=== PATIENT | female | born 1950 | race Caucasian/White ===

== ENCOUNTER 2021-12-16 13:00 | Outpatient (RCR) | payer MEDICARE, MEDICAID, SELFPAY ==
--- NOTE | 2021-11-25 15:44 | MHC.PT.EP ---
[facility] [place] Office [place] Office [place] Office [address] Supriya Judd [address] [phone] F: [phone] F: [phone] F: [phone] F: [phone] Physical Therapy Plan of Care Date of Evaluation: Date of Surgery: 07/2021 ORIF L HIP Diagnosis: L HIP PAIN, UNSTEADY GT, FALLS Assessment: Pt IS 71 YO F REFERRED TO PT FROM DR BAEZ WITH L HIP PAIN, UNSTEADY GT. PRESENTS S/P L HIP SURGERY (ORIF) JULY [address] CAZARES WITH DC DIRECTLY HOME TO STAY WITH DTR WITH HOME PT (LIMITED PER Pt REPORT). Pt HAD BEEN USING [facility] AND TRANSITIONED TO [facility] ABOUT 2 WKS AGO, HX OF R HIP SURGERY ALSO (ORIF S/P FALL) 5 YRS AGO. ALSO HX OF KYPHOPLASTY WITH SIGNIF SCOLIOSIS NOTED. Pt REPORTS SHE IS VERY ANXIOUS/NERVOUS ABOUT GOING OUT BECAUSE OF FEAR OF FALLING AND BECAUSE OF PAIN. PRESENTS WITH ANTALGIC GT WITH [facility], DECREASED L QUAD, HIP FLEXOR AND ABDUCTOR STRENGTH LIMITED BAL. Pt IS HIGH FALL RISK WITH TUG 24 SEC (NO AD). OF NOTE, L LE APPEARS LONGER IN STAND AND SUP (L CREST ELEVATED), RECOMMENDED 2X/WK TO ADDRESS THESE ISSUES, BUT Pt PREFERS 1X/WK Frequency and Duration: The patient will be seen 1X/WK X 8 WKS Short Term Goals: 1. IMPROVED GT PATTERN (LESS LIMP) WITH LRAD 2. I HEP WITH DC EX PLAN 3. IMPROVED COMFORT FOR SLEEP AT NIGHT Group Home Goals: 1. Pt ABLE TO CLIMB STAIRS I'LY WITH USE RAIL(S) 2. DECREASED L HIP PAIN AT LEAST 50% WITH ADLS 3. IMPROVED TUG (WITHOUT AD SOC=24 SEC) 4. Pt ABLE TO SLS L AT LEAST 10 SEC 5. L HIP ABD STRENGTH AT LEAST 3/5 ON L Treatment Plan: Modalities to reduce pain, spasms and effusion. Manual therapy to restore motion and function. Therapeutic exercise to improve strength and flexibility. Neuromuscular re-education for posture and balance. Therapeutic activities to return to functional activities of daily living. Electronically signed by: MELONIE GIBBS PT Please sign and return to therapist. Thank you for your referral.
--- NOTE | 2022-02-05 15:35 | MHC.PT.DC ---
[facility] [place] Office [place] Office [place] Office [address] Supriya Judd [address] [phone] F: [phone] F: [phone] F: [phone] F: [phone] Physical Therapy Discharge Report Diagnosis: L HIP PAIN, UNSTEADY GT, FALLS Date of Surgery: 07/2021 ORIF L HIP Date of Evaluation: 11/25/21 Date of Discharge: 02/05/22 Treatments to Date: 3 Cancellations to Date: No Shows to Date: Discharge Status: Patient Elected to Stop Recommend MD Follow-up Discharge Summary: Pt SEEN FOR INIT EVAL AND 2 FU VISIT (1 CX) THEN NO SHOWED LAST SCHEDULED APPT WITHOUT FURTHER APPTS MADE (?). AT LAST SESSION ON 12/16/21 PER ASSESSMENT DOES NOT BRIELLE A FULL HOUR SESSION, SIGNIF LLD NOTED (HAD TRIALED HEEL LIFTS ON R WITH Pt NOT LIKING IT ), UT/UPPER BODY COMPENSATION WITH EX PERF/FUNCTIONAL MOBILITY, SOME SORENESS REPORTED L HIP WITH FATIGUE NOTED' Electronically signed by: MELONIE GIBBS PT Please sign and return to therapist. Thank you for your referral.
== END 2022-02-05 15:36 | disposition home or self-care (01) ==
LOC: HO.PTWFD 13:00
PROVIDERS: Visit Provider Family Medicine
DX: R29.898 Other symptoms and signs involving the musculoskeletal system (principal)
CPT/HCPCS: 97110; 97162; 97530; 97535

== ENCOUNTER 2022-02-16 10:43 | Outpatient (REF) | payer MEDICARE, MEDICAID, SELFPAY ==
[2022-02-16 13:35] LABS: MANUAL DIFF FLAG NO
[2022-02-16 13:37] LABS: Basophils Absolute Auto 0.1 X10*3/uL (0.0-0.2); Basophils Percent Auto 0.9 % (0-2); Eosinophils Absolute Auto 0.1 X10*3/uL (0.0-0.4); Eosinophils Percent Auto 1.7 % (0-4); Hematocrit 48.3 % (37.0-47.0); Hemoglobin 16.5 g/dl (12.0-16.0); Imm Gran Abs Auto 0.02 X10*3/uL (0.00-0.03); Imm Gran Pct Auto 0.3 % (0.0-0.4); Lymphocytes Absolute Auto 1.8 X10*3/uL (1.2-4.9); Lymphocytes Percent Auto 28.4 % (20-40); Mean Corpuscular HGB Conc 34.2 g/dl (31.0-35.0); Mean Corpuscular Hemoglobin 33.8 pg (27.0-33.0); Mean Platelet Volume 9.2 fL (9.4-12.3); Monocytes Absolute Auto 0.5 X10*3/uL (0.1-1.2); Monocytes Percent Auto 7.7 % (2-11); Neutrophils Absolute Auto 3.9 x10*3/uL (2.0-8.3); Platelet Count 364 X10*3/uL (160-400); Red Blood Count 4.88 X10*6/uL (4.20-5.50); Red Cell Distribution Width 14.1 % (11.0-16.0); White Blood Count 6.3 X10*3/uL (4.8-10.8)
[2022-02-16 14:01] LABS: Alanine Aminotransferase 6 U/L (0-31); Albumin Level 4.4 g/dL (3.5-5.0); Alkaline Phosphatase 145 U/L (39-117); Anion Gap 14 (12-20); Aspartate Amino Transferase 13 U/L (5-31); Bilirubin Total 0.6 mg/dL (0.0-1.0); Blood Urea Nitrogen 9 mg/dL (9-16); Calcium 9.7 mg/dL (8.4-10.2); Carbon Dioxide 28 mmol/L (22-29); Chloride 102 mmol/L (96-108); Cholesterol 246 mg/dL; Estimated Glomerular Filt Rate > 60; Glucose Fasting 107 mg/dL (60-99); HDL Cholesterol 86 mg/dL; LDL Cholesterol Calculated 142 mg/dl; Sodium 140 mmol/L (135-145); Total Protein 7.1 g/dL (6.5-8.0); Triglycerides 93 mg/dL
[2022-02-16 14:09] LABS: TSH reflex Free T4 1.19 uIU/mL (0.32-4.0)
== END 2022-02-16 10:44 | disposition home or self-care (01) ==
LOC: HO.WFDLDS 10:43
PROVIDERS: Visit Provider Family Medicine
DX: Z00.00 Encounter for general adult medical examination without abnormal findings (principal)
CPT/HCPCS: 36415; 80053; 80061; 84443; 85025

== ENCOUNTER 2022-03-04 13:03 | Outpatient (REF) | payer MEDICARE, MEDICAID, SELFPAY ==
--- NOTE | ~2022-03-04 | XR_ITS ---
EXAMINATION: XR KNEE, LEFT CLINICAL INFORMATION: Pain. COMPARISON: None TECHNIQUE: AP and lateral views of the left knee. FINDINGS: There is bony demineralization. There heterogeneously dense marrow within the tibial shaft, with mottled, lucent foci. Lesser changes are questioned within the fibular shaft. Bony alignment is normal. The lateral, medial and patellofemoral joint space compartments are well-maintained. No fracture or dislocation is seen. There is a small left knee joint effusion. No foreign body is seen. There are atherosclerotic calcifications. XR/XR knee LT 2V IMPRESSION: 1. There is a small left knee joint effusion. 2. No fracture, dislocation or unusual degenerative change is seen. 3. There is marrow heterogeneity within the tibial shaft and, to a lesser extent, the fibular shaft. This may be a sequela of osteopenia; however, further differential considerations include multiple myeloma and focal neoplastic lesions. Please correlate clinically. If clinically indicated, this could be further characterized with a nuclear bone scan or MRI. A preliminary report was provided by the [facility] on 03/08/2022.
== END 2022-03-04 13:04 | disposition home or self-care (01) ==
LOC: HO.XRAY 13:03
PROVIDERS: PCP Family Medicine; Visit Provider Nurse Practitioner Family
DX: M25.562 Pain in left knee (principal)
CPT/HCPCS: 73560

== ENCOUNTER 2022-06-24 12:35 | Outpatient (REF) | payer MEDICARE, MEDICAID, SELFPAY ==
[2022-06-24 14:15] LABS: Estimated Average Glucose 94 mg/dL; Hemoglobin A1c % 4.9 %
== END 2022-06-24 12:36 | disposition home or self-care (01) ==
LOC: HO.WFDLDS 12:35
PROVIDERS: Visit Provider Family Medicine
DX: R73.01 Impaired fasting glucose (principal)
CPT/HCPCS: 36415; 83036

== ENCOUNTER → 2022-10-06 09:55 | Outpatient (REF) | payer MEDICARE, MEDICAID, SELFPAY ==
--- NOTE | ~2022-10-06 | NM_ITS ---
EXAMINATION: THREE PHASE BONE SCAN CLINICAL INFORMATION: Pain in left knee patient states history of skiing, accidents 4 times and she was 17 years old. COMPARISON: No previous bone scan is available for comparison. Radiographs of the left knee dated 03/04/2022 are available for comparison. TECHNIQUE: Initial rapid sequence images were obtained over the knees in the anterior and posterior projections during the bolus injection of 18 mCi Tc-99m MDP. Static images of the whole-body with multiple views of the knees were then obtained 3.25 hours post injection. FINDINGS: Initial rapid sequence images show bilaterally symmetrical flow to the knees with no foci of abnormally increased flow present at any site. Blood pool images obtained from the hips to the proximal tibias show no abnormal foci of increased blood pool activity. The urinary bladder is well-visualized at this time. The delayed static images show minimally increased activity in the patellar compartment of the right knee in the right medial tibial plateau. Is also a mild diffuse increase in activity in the bones adjacent to the right ankle. There is moderately increased activity in a horizontally linear focus across the sternomanubrial junction is also minimally increased activity in the sternoclavicular joints bilaterally. Mildly increased activity is present in the radial side of both hands, more prominently on the left. A moderately severe well compensated thoracolumbar kyphoscoliosis is present with lumbar convexity to the left. There is mildly to moderately increased activity in the T12 vertebra and in addition mildly increased activity is present diffusely at the costovertebral junctions of all of the left ribs and several right ribs, most prominently in the right lateral aspect of the upper thoracic spine. Some residual radiopharmaceutical is present at the injection site in the right antecubital fossa. The urinary bladder and faint visualization of both kidneys are noted. The right kidney is low-lying and pelvic in location. NM/NM bone scan whole body IMPRESSION: Very mild abnormalities in the medial and patellar compartments of the right knee are noted and these are probably arthritic or traumatic in etiology. A few additional mild nonspecific abnormalities are noted as described above and these are all likely arthritic or traumatic in etiology. None of these abnormalities is strongly suspicious for metastatic disease..
== END ==
LOC: HO.NUCMED 09:55
PROVIDERS: PCP Family Medicine; Visit Provider Family Medicine
DX: M25.562 Pain in left knee (principal)
CPT/HCPCS: 78306; 78315; A9503

== ENCOUNTER 2023-03-11 13:31 | Outpatient (AMB) | payer MEDICARE, MEDICAID, SELFPAY ==
[2023-03-11 13:40] VITALS: BP 148/90; PULSE 86; RESP 14; TEMP 37.1; O2SAT 94; BMI 21.1
--- NOTE | 2023-03-11 13:40 | A.OFFPC_ITS ---
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 Patient states she was referred to Ortho but she has not seen them due to traveling too far out of her comfort zone. She is wondering if you can refer her to some one closer such as [facility].? Bark Scaler Required: No Accompanied by: Self / Same As Patient Allergies alendronate sodium [From Fosamax] Allergy (Mild, Verified 03/11/23 13:51) Hives Tobacco use date assessed: 09/15/22 Dental Screening Dental Screen Date: 03/11/23 Did you have a dental visit in the last 12 months?: No Did you have a dental problem in the last 6 months where you did not have access to dental care?: No Was dental information given to patient?: Patient declined HPI f/u chronic conditions HPI Details 72 y/o female presents to f/u chronic conditions. Had switched her meloxicam to celebrex but she reports she has never gotten this due to insurance issues. Had increased her citalopram to 30mg daily and continued her trazodone for her anxiety. 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 Osteoporosis Overactive bladder Pure hypercholesterolemia Smoking Sternal fracture Surgical History History of hip surgery History of kyphoplasty Social History Household Members: Spouse Housing: House Are you a primary wound care nurse to a significant other at home: No Do you presently have visiting nurse or other home services: Yes (screw down) Patient Tobacco Use Status: Current everyday Tobacco user Tobacco use type: Cigarette e-Cigarette/Vaping Use: Never Used Second Hand Smoke Exposure: No service: No Current occupational status: retired and disabled Current occupational exposures/hazards: No Cognitive needs: No Hearing needs: No Vision needs: No Questionnaire Thrive Questionnaire Date Thrive assessed: 09/15/22 ALTHEA-7 AMB Questionnaire ALTHEA-7 Date ALTHEA - 7 assessed: 09/15/22 Source: Developed by Drs. Reuben Martino, Cecilia Arizmendi, Antonio Perry and colleagues, with an educational chay from [employer]. Review of Systems Const Denies chills, Denies fatigue, Denies fever(s), Denies headache(s) and Denies weakness ENT Denies dizziness and Denies headache(s) Card Denies chest pain, Denies lightheadedness, Denies dyspnea and Denies other (Palpitations) Resp Denies cough, Denies dyspnea, Denies wheezing and Denies other ( shortness of breath) Musc Details: Bilateral hand pain, L worse than R Denies numbness and Denies tingling Neuro Denies dizziness, Denies headache(s), Denies numbness, Denies tingling, Denies paresthesias and Denies weakness Psych Reports anxiety and Reports depression Endo Denies fatigue Aller/Immun Denies wheezing Physical exam (Primary Care) Vital Signs: Last Vital Signs Temp 98.7 F 03/11/23 13:40 Pulse 86 03/11/23 13:40 Resp 14 03/11/23 13:40 BP 148/90 H 03/11/23 13:40 Pulse Ox 94 03/11/23 13:40 Oxygen Delivery Method Room Air 03/11/23 13:40 BMI result Body Mass Index 21.1 Tobacco/Smoking Status: Tobacco use Status Tobacco use date assessed 09/15/22 03/11/23 13:53 Patient Tobacco Use Status Current everyday Tobacco 03/11/23 13:53 Tobacco use type Cigarette 03/11/23 13:53 e-Cigarette/Vaping Use Never Used 03/11/23 13:53 Thrive Assessment: Date of Thrive Assessment Date Thrive assessed 02/01/23 07/28/23 13:53 Const General: no acute distress and well developed Nutritional Appearance: well nourished Orientation/consciousness: patient oriented x3 HENMT Head: Yes normocephalic and Yes atraumatic Eyes General: appearance normal, both eyes and all related structures Pupils: Equal, round and reactive pupils present EOM: EOMs intact bilaterally Resp Effort & Inspection: normal respiratory effort Auscultation: clear to auscultation bilaterally Cardio Rate: regular rate Rhythm: regular rhythm Heart sounds: S1 normal heart sound present, S2 normal heart sound present, no gallops, no murmurs and no rubs Neuro General: patient oriented x3 and gait normal Cranial nerves: Yes Equal, round and reactive pupils present Extrem Other: Bilateral hand pain, L worse than R Psych Affect: normal affect Assessment and Plan Assessment & Plan (1) Chronic back pain: Code(s): M54.9 - Dorsalgia, unspecified; G89.29 - Other chronic pain Plan: Had prescribed Celebrex in place of meloxicam but her insurance declined this. She will have supplementary insurance starting March 15 and will try to have this resubmitted. If not, will get prior authorization (2) Anxiety and depression: Code(s): F41.9 - Anxiety disorder, unspecified; F32.A - Depression, unspecified Plan: Had increased her citalopram to 30 mg daily but does not look like she has made this change yet. Reminded her to increase citalopram to 30 mg daily. (3) Hand pain: Code(s): M79.643 - Pain in unspecified hand Plan: Bilateral hand pain, left worse than right. This is likely secondary to arthritis and worsened with manual range of motion exertion such as gardening Encouraged her to use wrist brace which she has for her left hand and if this is improving her symptoms we can get her a 2nd wrist brace Also working on getting Celebrex for her-see above (4) Left hip pain: Code(s): M25.552 - Pain in left hip Plan: Patient requests referral to Ortho Referred to [facility] ortho (5) Bilateral hip pain: Code(s): M25.551 - Pain in right hip; M25.552 - Pain in left hip Plan: As above, referred to Ortho Orders: Referrals Orthopedics Referral M25.551 - Pain in right hip, M25.552 - Pain in left hip, M54.42 - Lumbago with sciatica, left side Coding Level of Care Code Est Pt Level 3 (43941) Diagnoses Chronic back pain M54.9; G89.29 Anxiety and depression F41.9; F32.A Hand pain M79.643 Left hip pain M25.552 Bilateral hip pain M25.551; M25.552
== END 2023-03-11 14:22 | disposition home or self-care (01) ==
PROVIDERS: PCP Family Medicine; Visit Provider Family Medicine
DX: M54.9 Dorsalgia, unspecified (principal); G89.29 Other chronic pain; F41.9 Anxiety disorder, unspecified; F32.A Depression, unspecified; M79.643 Pain in unspecified hand; M25.552 Pain in left hip; M25.551 Pain in right hip
CPT/HCPCS: 99213

== ENCOUNTER 2023-03-31 12:23 | Outpatient (REF) | payer OTHER, MEDICAID, SELFPAY ==
--- NOTE | ~2023-03-31 | XR_ITS ---
EXAMINATION: XR PELVIS CLINICAL INFORMATION: Pain. COMPARISON: None available. TECHNIQUE: AP view of the pelvis. FINDINGS: There is bony demineralization. There is mild narrowing of the left acetabular joint space. The right acetabular joint space is well-maintained. There is mild subchondral sclerosis of the acetabular roofs. The femoral heads are smooth. No acute fracture or dislocation is seen. The pubic symphysis is intact. There are intact intramedullary henrry and compression screws related to bilateral hip ORIFs. No hardware failure or loosening is seen. There are pelvic phleboliths. No foreign body is seen XR/XR pelvis 1-2V IMPRESSION: 1. There is intact bilateral hip orthopedic hardware, without failure or loosening noted. 2. No acute fracture or dislocation is seen. 3. There is mild osteoarthritic change of the left hip, and minimal osteoarthritic change is seen of the right hip.
== END 2023-03-31 12:24 | disposition home or self-care (01) ==
LOC: HO.HOSX 12:23
PROVIDERS: Visit Provider Orthopaedic Surgery
DX: T84.84XA Pain due to internal orthopedic prosthetic devices, implants and grafts, initial encounter (principal); Z96.9 Presence of functional implant, unspecified
CPT/HCPCS: 72170; 99202

== ENCOUNTER 2023-03-31 13:55 | Outpatient (AMB) | payer OTHER, MEDICAID, SELFPAY ==
--- NOTE | 2023-03-31 14:01 | A.OFFVIS_ITS ---
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 Patient reports that she had hixtory of a Left hip fracture and had ORIF with Dr. Martinez at [place] about a year ago. The right hip was also fractured and surgical ORIF at [facility] about 6-7 years. Left hip is more painful than the right, she feels that most of her pain in the right hip is due to compensation of the left hip. 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 Her hip pain has been worsening since last month. Her left hip is more painful than the right, and she feels that most of her pain in the right hip is due to compensation in the left hip. She had a history of a left hip fracture and had ORIF with Dr. Martinez at [place] about a year ago. The right hip was also fractured and underwent surgical ORIF at [facility] about 6?7 years ago. She has difficulty walking. 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) Patient Tobacco Use Status: Current everyday Tobacco user Tobacco use type: Cigarette e-Cigarette/Vaping Use: Never Used Second Hand Smoke Exposure: No service: No Current occupational status: retired and disabled Current occupational exposures/hazards: No Cognitive needs: No Hearing needs: No Vision needs: No Physical Exam Vital Signs: BMI result Body Mass Index 21.8 Const General: no acute distress, alert and awake Orientation/consciousness: patient oriented x3 HEENT Head: Yes normocephalic and Yes atraumatic Eyes EOM: EOMs intact bilaterally Resp Effort & Inspection: normal respiratory effort and able to speak in complete sentences Cardio Jugular venous distension: no JVD Skin General skin exam: turgor normal Rashes: no rashes Neuro General: patient oriented x3 Extrem Other: Slim F with palpable tenderness over the lateral aspect of the proximal femur. Hardware palpable. Psych Appearance: grossly normal Affect: normal affect Attitude: cooperative Results Reviewed Results Reviewed: I personally reviewed relevant radiographs. Radiographs demonstrate hardware in both hips on the right she had a short nail with 2 hip screws. Sequela fracture but fracture appears healed. On the left she had a short gamma IM nail with hip screw protruding from the lateral cortex of the femur approximately 2 cm Assessment & Plan Assessment & Plan (1) Retained orthopedic hardware: Code(s): Z96.9 - Presence of functional implant, unspecified Plan: This is a 72-year-old woman with painful orthopedic hardware in the left hip. I discussed treatment options. The radiographs look reasonable but she is very thin and this prominent hip screw on the left bothers her. It is reasonable to remove it. I described surgery to her and I discussed the risks benefits and alternatives including but not limited to the risk of pain, infection, stiffness, need for further surgery as well as potential medical complications such as blood clots, pulmonary embolism and cardiac complications. She expressed understanding and we will proceed forward accordingly. Plan Scribed for Dr. Chadd Vance by Ramy Byrne medical insurance claims processor, on 03/31/2023. I, Dr. Chadd Vance, have personally reviewed and agree with the information entered by the scribe. Orders: Orders XR pelvis 1-2V 03/31/23 M25.559 - Pain in unspecified hip Coding Level of Care Code New Pt Level 4 (22750) Diagnoses Retained orthopedic hardware Z96.9
[2023-03-31 14:02] VITALS: BMI 21.8
== END 2023-03-31 15:11 | disposition home or self-care (01) ==
PROVIDERS: PCP Family Medicine; Visit Provider Orthopaedic Surgery
DX: T84.84XA Pain due to internal orthopedic prosthetic devices, implants and grafts, initial encounter (principal)
CPT/HCPCS: 99204

== ENCOUNTER 2023-04-05 15:39 | Outpatient (AMB) | payer OTHER, MEDICAID, SELFPAY ==
[2023-04-05 15:45] VITALS: BP 138/86; PULSE 91; RESP 12; TEMP 36.9; O2SAT 96; BMI 21.4
--- NOTE | 2023-04-05 15:45 | MHC.PC.OV ---
Vital Signs 04/05/23 15:45 Height 4 ft 11 in Weight 106 lb 2 oz BMI 21.4 BP 138/86 Blood Pressure Location Lt brachial Position Sitting Respiration 12 Pulse 91 Pulse Source Pulse Oximeter Temp 98.5 F Temp Source Temporal Artery Scan Pulse Oximetry (%) 96 Oxygen Delivery Method Room Air Intake Visit Reasons: L hip hardware removal-04/20 Intake Note: Patient states that she needs a whole new script for her Celebrex, as well as a refill on her tizanidine. Instructor Modeling Required: No Accompanied by: Self / Same As Patient Allergies alendronate sodium [From Fosamax] Allergy (Mild, Verified 04/05/23 15:57) Hives Tobacco use date assessed: 09/15/22 Fall risk assessment: No Falls in past year Last assessed Fall Risk: 04/05/23 Dental Screening Dental Screen Date: 04/05/23 Did you have a dental visit in the last 12 months?: Yes Did you have a dental problem in the last 6 months where you did not have access to dental care?: No Was dental information given to patient?: Patient has dentist HPI HPI Comments History of Present Illness Details 72-year-old female presents for medical clearance for hardware removal in the left hip on 04/20/2023 with Orthopedic surgery, Dr. Vance at [facility]. She notes she had left replacement over a year and half ago; her left hip has been sensitive to touch and pressure. Her symptoms have been on and off. She notes she was informed by the surgeon that removing the screws from the hip may improve or resolve her symptoms. No associated tingling, numbness, or loss of sensation. She denies acute symptoms today. 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 Reuben Martino, Cecilia Arizmendi, Antonio Perry and colleagues, with an educational chay from [employer]. Review of Systems Const Details: Const Denies chills, Denies fatigue, Denies fever(s), Denies headache(s) and Denies weakness ENT Denies dizziness and Denies headache(s) Card Denies chest pain, Denies lightheadedness, Denies dyspnea and Denies other (Palpitations) Resp Denies cough, Denies dyspnea, Denies wheezing and Denies other ( shortness of breath) GI Denies abdominal pain, Denies melena, Denies hematochezia, Denies change in bowel habits, Denies dyspepsia and Denies nausea Denies hematuria and Denies dysuria Musc Denies abnormal gait, Denies myalgias, Denies arthralgias, Denies numbness and Denies tingling Skin/Breast Denies rash, Denies unusual bruising and Denies wounds Neuro Denies abnormal gait, Denies dizziness, Denies headache(s), Denies memory loss, Denies numbness, Denies Sensory deficit (Neuro), Denies tingling and Denies weakness Psych Denies anxiety, Denies depression, Denies memory loss Endo Denies cold intolerance, Denies fatigue, Denies heat intolerance, Denies polydipsia and Denies polyuria Aller/Immun Denies wheezing Physical exam (Primary Care) Vital Signs: Last Vital Signs Temp 98.5 F 04/05/23 15:45 Pulse 91 04/05/23 15:45 Resp 12 04/05/23 15:45 BP 138/86 04/05/23 15:45 Pulse Ox 96 04/05/23 15:45 Oxygen Delivery Method Room Air 04/05/23 15:45 BMI result Body Mass Index 21.4 Tobacco/Smoking Status: Tobacco use Status Tobacco use date assessed 09/15/22 04/05/23 15:56 Patient Tobacco Use Status Current everyday Tobacco 04/05/23 15:56 Tobacco use type Cigarette 04/05/23 15:56 e-Cigarette/Vaping Use Never Used 04/05/23 15:56 Thrive Assessment: Date of Thrive Assessment Date Thrive assessed 09/15/22 04/05/23 15:56 Const Other: General: no acute distress and well developed Nutritional Appearance: well nourished Orientation/consciousness: patient oriented x3 HENMT Head: Yes normocephalic and Yes atraumatic Eyes General: appearance normal, both eyes and all related structures Pupils: Equal, round and reactive pupils present EOM: EOMs intact bilaterally Resp Effort & Inspection: normal respiratory effort Auscultation: clear to auscultation bilaterally Cardio Rate: regular rate Rhythm: regular rhythm Heart sounds: S1 normal heart sound present, S2 normal heart sound present, no gallops, no murmurs and no rubs GI Palpation (GI): No Abdominal aortic bruit present, Soft to palpation, nontender, No hepatosplenomegaly present and No Rebound tenderness present Auscultation: normal bowel sounds General: Yes no CVA tenderness Back/Spine/Pelvis Back: no CVA tenderness Cervical Spine: cervical ROM normal and No Cervical spine tenderness Thoracic/Lumbar Spine: thoraco-lumbar ROM normal, No pain with thoraco-lumbar ROM, No thoracic spinal tenderness and No lumbar spinal tenderness Extrem General: Yes normal to inspection, No edema and No calf tenderness Skin General: warm and dry. Normal skin color. Normal skin turgor Lesions: no lesions Rashes: no rashes Trauma: no lacerations or abrasions Wounds: no wounds Nails: normal Neuro General: patient oriented x3, gait normal and no focal neuro deficit Cranial nerves: Yes Equal, round and reactive pupils present Cognition (Neuro): normal cognition Gait exam (Neuro): Normal gait present Sensory Exam: No Sensory deficit (Neuro) Psych Appearance: grossly normal Affect: normal affect Attitude: cooperative Thought process: Normal thought process present Assessment and Plan Assessment & Plan (1) Preop examination: Code(s): Z01.818 - Encounter for other preprocedural examination Plan: 72-year-old female presents for medical clearance for hardware removal in the left hip on 04/20/2023 with Orthopedic surgery, Dr. Vance at [facility]. She notes she had left replacement over a year and half ago; her left hip has been sensitive to touch and pressure. Her symptoms have been on and off. She notes she was informed by the surgeon that removing the screws from the hip may improve or resolve her symptoms. No acute symptoms today Normal preop exam No current medical contraindications for left hip surgery CBC and CMP ordered. Will review and notify patient of results Follow-up with PCP as planned Verbalized understanding and agreed with the plan. Orders: Orders Complete Blood Count Auto Diff Today Z01.818 - Encounter for other preprocedural examination Comprehensive Met. Panel Today Z01.818 - Encounter for other preprocedural examination Coding Level of Care Code Est Pt Level 3 (30600) Diagnoses Preop examination Z01.818
== END 2023-04-05 16:17 | disposition home or self-care (01) ==
PROVIDERS: PCP Family Medicine; Visit Provider Nurse Practitioner Family
DX: Z01.818 Encounter for other preprocedural examination (principal)
CPT/HCPCS: 99213

== ENCOUNTER 2023-04-12 11:19 | Outpatient (REF) | payer OTHER, MEDICAID, SELFPAY ==
[2023-04-12 14:41] LABS: MANUAL DIFF FLAG NO
[2023-04-12 14:43] LABS: Basophils Percent Auto 0.5 % (0-2); Eosinophils Absolute Auto 0.1 X10*3/uL (0.0-0.4); Eosinophils Percent Auto 0.8 % (0-4); Hematocrit 47.7 % (37.0-47.0); Hemoglobin 15.9 g/dl (12.0-16.0); Imm Gran Abs Auto 0.02 X10*3/uL (0.00-0.03); Imm Gran Pct Auto 0.3 % (0.0-0.4); Lymphocytes Absolute Auto 1.5 X10*3/uL (1.2-4.9); Lymphocytes Percent Auto 19.7 % (20-40); Mean Corpuscular HGB Conc 33.3 g/dl (31.0-35.0); Mean Corpuscular Hemoglobin 32.9 pg (27.0-33.0); Mean Corpuscular Volume 98.8 fL (80.0-98.0); Mean Platelet Volume 9.6 fL (9.4-12.3); Monocytes Absolute Auto 0.7 X10*3/uL (0.1-1.2); Monocytes Percent Auto 8.8 % (2-11); Neutrophils Absolute Auto 5.2 x10*3/uL (2.0-8.3); Neutrophils Percent Auto 69.9 % (45-73); Platelet Count 275 X10*3/uL (160-400); Red Blood Count 4.83 X10*6/uL (4.20-5.50); Red Cell Distribution Width 13.5 % (11.0-16.0); White Blood Count 7.4 X10*3/uL (4.8-10.8)
[2023-04-12 15:25] LABS: Anion Gap 14 (12-20); Carbon Dioxide 23 mmol/L (22-29); Chloride 104 mmol/L (96-108); Cholesterol 250 mg/dL (<200); Potassium 4.2 mmol/L (3.3-5.1); Sodium 137 mmol/L (135-145); Total Protein 7.1 g/dL (6.5-8.0)
[2023-04-12 15:28] LABS: Alanine Aminotransferase 9 U/L (0-31); Albumin Level 4.3 g/dL (3.5-5.0); Alkaline Phosphatase 99 U/L (39-117); Aspartate Amino Transferase 22 U/L (5-31); Bilirubin Total 0.6 mg/dL (0.0-1.0); Blood Urea Nitrogen 8 mg/dL (9-16); Estimated Glomerular Filt Rate > 60; Glucose Random 98 mg/dL (60-115); HDL Cholesterol 89 mg/dL (>40); LDL Cholesterol Calculated 147 mg/dL (<100); Triglycerides 73 mg/dL (<150)
== END 2023-04-12 11:20 | disposition home or self-care (01) ==
LOC: HO.WFDLDS 11:19
PROVIDERS: Nurse Practitioner Family; Visit Provider Family Medicine
DX: Z00.00 Encounter for general adult medical examination without abnormal findings (principal); E78.00 Pure hypercholesterolemia, unspecified
CPT/HCPCS: 36415; 80053; 80061; 85025

== ENCOUNTER 2023-04-20 07:07 | Day surgery (SDC) | payer OTHER, MEDICAID, SELFPAY ==
[2023-04-15 11:31] VITALS: BMI 21.8
--- NOTE | 2023-04-19 08:14 | HO.ANESPROP2 ---
Documented by User: Kirstin Wayne NP 04/19/23 08:18 HPI - Anesthesia Eval Consult details Narrative: 72yo F for Left Hip Removal Orthopedic Hardware Medically cleared PMFSH Active Problems Active Problems: All Active Problems (Updated 04/05/23 @ 16:20 by Dre Joiner CNP) Preop examination (Acute) Retained orthopedic hardware (Acute) Hand pain (Acute) Kyphosis (Acute) Scoliosis (Acute) Allergies (Acute) Screening for osteoporosis (Acute) Sciatica (Acute) Elevated LDL cholesterol level (Acute) Elevated fasting glucose (Acute) Breast cancer screening by mammogram (Acute) Screening for colon cancer (Acute) Adult general medical exam (Acute) Underweight due to inadequate caloric intake (Acute) Laboratory exam ordered as part of routine general medical examination (Acute) Left hip pain (Acute) Chronic back pain (Acute) Status post fall (Acute) Lower extremity weakness (Acute) Anxiety and depression (Acute) Smoker (Acute) Upper extremity weakness (Acute) Lumbago with sciatica, left side (Acute) Elevated hematocrit (Acute) Knee pain, left (Acute) Erythrocytosis (Acute) Smoking (Acute) Ascending aorta dilation (Acute) COPD with emphysema (Acute) Osteoporosis (Acute) Past Medical History Medical History Ascending aorta dilation Carpal tunnel syndrome Chronic back pain greater than 3 months duration 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 Osteoporosis Overactive bladder Pure hypercholesterolemia Smoking Sternal fracture Surgical History Surgical History History of hip surgery History of kyphoplasty Social History Social History Household Members: Spouse Housing: House Are you a primary plant care worker to a significant other at home: No Do you presently have visiting nurse or 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) Patient Tobacco Use Status: Current someday Tobacco user Tobacco use type: Cigarette Cigarette Packs Per Day: 0.5 Cigarettes Per Day: 10.0 e-Cigarette/Vaping Use: Never Used Second Hand Smoke Exposure: No Use of substances other than those prescribed or required for medical reasons: No Advance Directives: No Advance Directives Information Provided: Yes service: No Current occupational status: retired and disabled Current occupational exposures/hazards: No Cognitive needs: No Hearing needs: No Vision needs: No Meds Allergies Allergy/AdvReac Type Severity Reaction Status Date / Time alendronate sodium Allergy Mild Hives Verified 04/05/23 15:57 [From Fosamax] Home Medications Medication Instructions Recorded Confirmed Last Taken Type acyclovir 400 mg tablet 400 mg PO DAILY 11/05/21 11/29/22 Unknown History albuterol sulfate 90 mcg/actuation 90 mcg inhalation DAILY 11/05/21 11/29/22 Unknown History aerosol inhaler (Ventolin HFA) tiotropium bromide 2.5 2 puff inhalation DAILY 11/05/21 11/29/22 Unknown History mcg/actuation mist for inhalation (Spiriva Respimat) calcium carbonate 500 mg calcium 1 tab PO DAILY 03/04/22 11/29/22 Unknown History (1,250 mg) tablet Exam Exam Date and Time: April 19, 2023 0814 Height,Weight and Vital Signs: Height 4 ft 11 in Weight 48.988 kg Pertinent Lab Results Pertinent Lab Results: Laboratory Tests 04/12/23 04/12/23 11:21 11:21 WBC 7.4 Hgb 15.9 Hct 47.7 H Plt Count 275 Sodium 137 Potassium 4.2 Chloride 104 Carbon Dioxide 23 BUN 8 L Creatinine 0.73 Narrative Narrative: Chest CT 02/2023 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 Assessment and Plan Assessment Anesthesia Assessment: Chart Reviewed Documented by User: Jaimie Howard MD 04/20/23 08:12 [facility] Past Medical History Medical History Ascending aorta dilation Carpal tunnel syndrome Chronic back pain greater than 3 months duration 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 Osteoporosis Overactive bladder Pure hypercholesterolemia Smoking Sternal fracture Family History Family history of problems with anesthesia: No Surgical History Surgical History History of hip surgery History of kyphoplasty History of Problems with Anesthesia: No Social History Social History Household Members: Spouse Housing: House Are you a primary plant care worker to a significant other at home: No Do you presently have visiting nurse or 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) Patient Tobacco Use Status: Current someday Tobacco user Tobacco use type: Cigarette Cigarette Packs Per Day: 0.5 Cigarettes Per Day: 10.0 e-Cigarette/Vaping Use: Never Used Second Hand Smoke Exposure: No Use of substances other than those prescribed or required for medical reasons: No Advance Directives: No Advance Directives Information Provided: Yes service: No Current occupational status: retired and disabled Current occupational exposures/hazards: No Cognitive needs: No Hearing needs: No Vision needs: No Meds Allergies Allergy/AdvReac Type Severity Reaction Status Date / Time alendronate sodium Allergy Mild Hives Verified 04/05/23 15:57 [From Fosamax] Home Medications Medication Instructions Recorded Confirmed Last Taken Type acyclovir 400 mg tablet 400 mg PO DAILY 11/05/21 11/29/22 Unknown History albuterol sulfate 90 mcg/actuation 90 mcg inhalation DAILY 11/05/21 11/29/22 Unknown History aerosol inhaler (Ventolin HFA) tiotropium bromide 2.5 2 puff inhalation DAILY 11/05/21 11/29/22 Unknown History mcg/actuation mist for inhalation (Spiriva Respimat) calcium carbonate 500 mg calcium 1 tab PO DAILY 03/04/22 11/29/22 Unknown History (1,250 mg) tablet Exam Airway Mallampati Class: II TM Dist: >3cm Neck ROM: Limited Heart: rrr Lungs: cta Assessment and Plan Assessment Anesthesia Assessment: Anesthesia Plan Discussed Final Anesthetic Review Family History of Problems with Anesthesia: No History of Problems with Anesthesia: No NPO: Yes ASA Class: III Final Preanesthetic Review: No Changes in Pt Med Stat, Meds/Allgs Chart Reviewed, Consent Obtained/Reviewed and Anes Risks/Benef Reviewed Patient Risk: Intermediate Procedure Risk: Intermediate Anesthetic Plan Anesthetic Plan: GA Disposition: Standard PACU
[2023-04-20] VITALS (14 sets, daily range): BP systolic 148–181; BP diastolic 78–107; PULSE 76–92; RESP 16–20; TEMP 36.1–36.9; O2SAT 92–100
--- NOTE | 2023-04-20 | ECG_ITS ---
Test Reason : copd, preop Blood Pressure : / mmHG Vent. Rate : 082 BPM Atrial Rate : 082 BPM P-R Int : 160 ms QRS Dur : 112 ms QT Int : 392 ms P-R-T Axes : 068 -30 052 degrees QTc Int : 457 ms Normal sinus rhythm Left axis deviation Voltage criteria for left ventricular hypertrophy ( R in aVL , Sokolow-Hartley , Rom product ) Septal infarct , age undetermined Abnormal ECG No previous ECGs available Referred By: Kirstin Wayne Electronically Signed By:MONI PILLAI
--- NOTE | ~2023-04-20 | FL_ITS ---
CLINICAL INDICATION: Left hip hardware removal. FINDINGS: Technical assistance and equipment were provided by the Department of Radiology during intraoperative fluoroscopy for left hip hardware removal. 2, limited fluoroscopic spot images are submitted. A radiologist was not present during the procedure. The images are not labeled left versus right. The images demonstrate the presence of proximal femoral ORIF hardware. The images are available for review on PACS. TOTAL FLUOROSCOPY TIME: 19 seconds. CUMULATIVE DOSE: 1.7 mGy FL/FL guidance in OR IMPRESSION: Technical assistance and equipment provided by the Department of Radiology during intraoperative fluoroscopy, as above. Please see operative report for further details.
[2023-04-20] MEDS: Lactated Ringers 1,000 ML 100 ML IVCONT (08:02)
--- NOTE | 2023-04-20 11:08 | PM.OP ---
Brief Operative Note Date of Service: 04/20/23 Pre-op diagnosis: Painful orthopaedic hardware Post-op diagnosis: same Procedure: Revision ORIF left femur Implants: [place] 80 mm hip screw Surgeon: Chadd Vance MD Anesthesia: GETA and local Was an Glass Production Machine Operator used for this Procedure?: Yes Glass Production Machine Operator: Jerome Vargas Estimated blood loss (mL): 75 IV fluids (mL): 600 Pathology: none sent Condition: stable Disposition: PACU
[2023-04-20] MEDS: oxyCODONE HCl Immed Release 5 MG TABLET PO (11:58)
[2023-04-20] MEDS: fentaNYL citrate/PF 100 MCG/2 ML VIAL 25 MCG IVPUSH ×3 (12:29→12:39)
--- NOTE | 2023-05-06 09:34 | P.OP_ITS ---
Operative Note Operative Note Date of Service: 04/20/23 Narrative: Date of Service: 04/20/23 Pre-op diagnosis: Painful orthopaedic hardware Post-op diagnosis: same Procedure: Revision ORIF left femur Implants: [place] 80 mm hip screw Surgeon: Chadd Vance MD Anesthesia: GETA and local Was an Communications Consultant used for this Procedure?: Yes Communications Consultant: Jerome Vargas Estimated blood loss (mL): 75 IV fluids (mL): 600 Pathology: none sent Condition: stable Disposition: PACU Procedure in detail: Patient was brought to the operating room and placed supine on the surgical table. She was prepped and draped in standard sterile fashion and a time out was called to identify proper site, proper procedure and IV antibiotics per weight were administered. I began by his making a stab incision proximal to the nail and distally over the prior incision for the hip screw. Blunt dissection was taken proximally down to the nail and a flexible screwdriver was inserted into the nail. Distally I bluntly dissected down to the prominent hip screw and placed the screwdriver into the hip screw. I and screw the set screw and removed the hip screw easily and without complication. I then replaced this with the shorter hip screw that was not prominent. Set screw was then tightened all instrumentation removed. I irrigated copiously and closed the incisions with some absorbable suture and diana. Local anesthetic was injected into the incision sites. Patient was then extubated brought to recovery room in stable condition. There were no known complications.
== END 2023-04-20 13:57 | disposition home or self-care (01) ==
PROVIDERS: PCP Family Medicine; Visit Provider Orthopaedic Surgery
PROC: (CPT 20680; principal; 2023-04-20 07:30)
DX: T84.84XA Pain due to internal orthopedic prosthetic devices, implants and grafts, initial encounter (principal); G89.29 Other chronic pain; Y79.2 Prosthetic and other implants, materials and accessory orthopedic devices associated with adverse incidents; Z96.642 Presence of left artificial hip joint; M54.9 Dorsalgia, unspecified; M41.9 Scoliosis, unspecified; M81.0 Age-related osteoporosis without current pathological fracture; J44.9 Chronic obstructive pulmonary disease, unspecified; Z98.890 Other specified postprocedural states; F17.210 Nicotine dependence, cigarettes, uncomplicated
CPT/HCPCS: 20680; 93005; C1713; J0690; J2250; J2795; J3010

== ENCOUNTER → 2023-04-20 07:07 | Outpatient (BNV) | payer OTHER, MEDICAID, SELFPAY | PROVIDERS: PCP Family Medicine; Visit Provider Orthopaedic Surgery | DX: T84.84XA Pain due to internal orthopedic prosthetic devices, implants and grafts, initial encounter (principal) | CPT/HCPCS: 20680 ==

== ENCOUNTER 2023-05-03 11:23 | Outpatient (REF) | payer OTHER, MEDICAID, SELFPAY ==
--- NOTE | ~2023-05-03 | XR_ITS ---
EXAMINATION: XR PELVIS CLINICAL INFORMATION: Pain in unspecified hip COMPARISON: 04/20/2023, 03/31/2023 TECHNIQUE: AP view of the pelvis. FINDINGS: The bones are diffusely demineralized. Mild bilateral narrowing of the hip joint spaces with degenerative changes. Redemonstration of bilateral intramedullary henrry and compression screws related to bilateral hip ORIFs. Hardware appears intact. XR/XR pelvis 1-2V IMPRESSION: Bilateral hip orthopedic hardware appears intact. Mild degenerative changes in the bilateral hips, left greater than right. Bones are diffusely demineralized. Additional imaging with CT scan or MRI should be considered for better visualization as these modalities are much more sensitive for detection of fracture or other underlying pathology.
== END 2023-05-03 11:24 | disposition home or self-care (01) ==
LOC: HO.HOSX 11:23
PROVIDERS: Visit Provider Physician Assistant
DX: Z96.9 Presence of functional implant, unspecified (principal)
CPT/HCPCS: 72170

== ENCOUNTER 2023-05-03 14:13 | Outpatient (AMB) | payer MEDICARE, MEDICAID, SELFPAY ==
--- NOTE | 2023-05-03 14:20 | A.OFFVIS_ITS ---
Intake Vital Signs 05/03/23 14:26 Height 5 ft Weight 106 lb BMI 20.7 Intake Visit Reasons: PO-BETTE Left Hip 04/20/23 NE Intake Note: Iram is a 72 year old female who presents today for a post op appointment s/p BETTE left hip 04/20/23 NE. Patient reports being in a lot of pain and soreness. Allergies alendronate sodium [From Fosamax] Allergy (Mild, Verified 05/03/23 14:21) Hives HPI PO-BETTE Left Hip 04/20/23 NE HPI Details 72-year-old female who presents in the o ffice today 13 days status post left femur revision ORIF, which was performed on 04/20/[address] Vance. The patient reports being in a lot of pain with soreness. 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) Patient Tobacco Use Status: Current someday Tobacco user Tobacco use type: Cigarette Cigarette Packs Per Day: 0.5 Cigarettes Per Day: 10.0 e-Cigarette/Vaping Use: Never Used Second Hand Smoke Exposure: No service: No Current occupational status: retired and disabled Current occupational exposures/hazards: No Cognitive needs: No Hearing needs: No Vision needs: No Review of Systems Const All systems reviewed & are unremarkable except as noted in HPI and below Physical Exam Vital Signs: BMI result Body Mass Index 20.7 Const General: cooperative, healthy appearing and no acute distress Resp Effort & Inspection: normal respiratory effort and able to speak in complete sentences Cardio Rate: regular rate Peripheral pulses: Peripheral pulses 2+ throughout GI Palpation (GI): Soft to palpation Skin Lesions: no lesions Rashes: no rashes Extrem Other: Left femur: Incision site is clean, dry, and intact. [place] intact. No signs of infection. Full hip ROM. NVI. Assessment & Plan Assessment & Plan (1) Retained orthopedic hardware: Comment: Left femur revision ORIF 04/20/2023 Dr. Chadd Vance Code(s): Z96.9 - Presence of functional implant, unspecified Plan Ms. Birmingham is a 72-year-old female who presents in the office today 13 days status post left femur revision ORIF, which was performed on 04/20/[address] Vance. The patient reports being in a lot of pain with soreness. [place] were removed and steri-stripes were applied. She reports improvement in her pain since prior to her surgery. She does have localized pain around the surgical site. We discussed physical therapy, however, she is ambulating without any assistive devices and she reports minimal pain with ambulation. Therefore physical therapy has been deferred at this time. Follow up will be PRN, or sooner if needed. X-rays of the left femur obtained while in the office today and reviewed by me, Jyothi Chong PA-C, revealed intact orthopedic hardware with routine healing. Orders: Orders XR pelvis 1-2V Today M25.559 - Pain in unspecified hip Patient Instructions: Scribed for Jyothi Chong PA-C by Yumiko Rutledge medical services assistant, on 05/03/2023 at 2:19 pm, EST. Coding Level of Care Code Global (81537) Diagnoses Retained orthopedic hardware Z96.9
[2023-05-03 14:26] VITALS: BMI 20.7
== END 2023-05-03 14:39 | disposition home or self-care (01) ==
PROVIDERS: PCP Family Medicine; Visit Provider Physician Assistant
DX: Z96.9 Presence of functional implant, unspecified (principal)
CPT/HCPCS: 99024

== ENCOUNTER 2023-09-23 11:47 | Outpatient (AMB) | payer OTHER, MEDICAID, SELFPAY ==
[2023-09-23 12:05] VITALS: BP 146/94; PULSE 86; TEMP 34.4; O2SAT 96; BMI 21.2
--- NOTE | 2023-09-23 12:05 | A.OFFPC_ITS ---
Vital Signs 09/23/23 12:05 Height 5 ft Weight 108 lb 6 oz BMI 21.2 BP 146/94 H Blood Pressure Location Lt brachial Position Sitting Pulse 86 Pulse Source Pulse Oximeter Temp 94 F L Temp Source Oral Pulse Oximetry (%) 96 Oxygen Delivery Method Room Air Intake Visit Reasons: Review and medications normal visit. Intake Note: Patient is here for review on medications, everything needs a refill. Allergies alendronate sodium [From Fosamax] Allergy (Mild, Verified 09/23/23 12:08) Hives Tobacco use date assessed: 09/23/23 HPI Review and medications normal visit. HPI Details 73 y/o female presents to f/u chronic co nditions. Pt does have known osteoporosis. She is requesting a specialist for ongoing discomfort with her joints. She reports bilateral hip pain, wrist, L knee pain. She reports she is taking tizanidine, lidocaine patches, diclofenac gel. Had prescribed her celebrex but had been unable to refill this. 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 Reuben Martino, Cecilia Arizmendi, Antonio Perry and colleagues, with an educational chay from [employer]. Physical exam (Primary Care) Vital Signs: Last Vital Signs Temp 94 F L 09/23/23 12:05 Pulse 86 09/23/23 12:05 BP 146/94 H 09/23/23 12:05 Pulse Ox 96 09/23/23 12:05 Oxygen Delivery Method Room Air 09/23/23 12:05 BMI result Body Mass Index 21.2 Tobacco/Smoking Status: Tobacco use Status Tobacco use date assessed 09/23/23 09/23/23 12:16 Patient Tobacco Use Status Current someday Tobacco 09/23/23 12:14 Tobacco use type Cigarette 09/23/23 12:14 e-Cigarette/Vaping Use Never Used 09/23/23 12:14 Thrive Assessment: Date of Thrive Assessment Date Thrive assessed 09/15/22 09/23/23 12:14 Assessment and Plan Assessment & Plan (1) Polyarthralgia: Code(s): M25.50 - Pain in unspecified joint Plan: Bilateral?hand?pain?as?well?as?knee?and?bilateral?hip?pain.??Also?chronic?back?p ain. Patient?requests?referral?back?to?Ortho?which?is?made. Will?also?check?inflammatory?markers?and?if?significant?abnormalities?are?found, ?would?consider?referral?to?Rheumatology. Had?tried?to?prescribe?Celebrex?in?the?past?but?she?was?unab le?to?get?this?paid?for.??She?now?has?additional?insurance?and?would?like?to?try ?again.??Ordered. Continue?topical?medications?and?also?gabapentin?and?tizanidine. Patient?had?had?oxycodone?in?the?past?which?she?notes?worked?very?well We?discussed?that?I?would?like?to?see?if?we?can?find?other?modalities?before?con sidering?opiates. (2) Osteoporosis: Code(s): M81.0 - Age-related osteoporosis without current pathological fracture Plan: History?of?osteoporosis?but?she?has?not?had?a?bone?d ensity?test?in?the?last?2?years?so?I?have?ordered?this. She?is?on?vitamin- D?but?stopped?taking?calcium?because?the?pills?were?large.??Advised?TUMs which?she?can?chew?twice?a?day. (3) Difficulty sleeping: Code(s): G47.9 - Sleep disorder, unspecified Plan: She?has?been?taking?trazodone?but?needing?a?stronger?dose. Will?increase?to?150?mg?b.i.d.?p.r.n. Orders: Orders TSH reflex Free T4 Today M25.50 - Pain in unspecified joint, Z00.00 - Encounter for general adult medical examination without abnormal findings XR DEXA axial skeleton Today M81.0 - Age-related osteoporosis without current pathological fracture Comprehensive Met. Panel Today M25.50 - Pain in unspecified joint Complete Blood Count Auto Diff Today M25.50 - Pain in unspecified joint, Z00.00 - Encounter for general adult medical examination without abnormal findings CRP High Sensitivity Today M25.50 - Pain in unspecified joint Erythrocyte Sedimentation Rate Today M25.50 - Pain in unspecified joint OZ Reflex Titer and Pattern Today M25.50 - Pain in unspecified joint Rheumatoid Factor Today M25.50 - Pain in unspecified joint Referrals Orthopedics Referral G89.29 - Other chronic pain, M25.551 - Pain in right hip, M25.552 - Pain in left hip, M25.562 - Pain in left knee, M54.9 - Dorsalgia, unspecified, M79.641 - Pain in right hand, M79.642 - Pain in left hand Medications: Changed From trazodone 100 mg PO BEDTIME 30 tabs 1RF To trazodone 150 mg (1.5 x 100 mg) PO BEDTIME 45 tabs 1RF 30 days Coding Level of Care Code Est Pt Level 4 (14214) Diagnoses Polyarthralgia M25.50 Osteoporosis M81.0 Difficulty sleeping G47.9
== END 2023-09-23 13:26 | disposition home or self-care (01) ==
PROVIDERS: PCP Family Medicine; Visit Provider Family Medicine
DX: M25.50 Pain in unspecified joint (principal); M81.0 Age-related osteoporosis without current pathological fracture; G47.9 Sleep disorder, unspecified
CPT/HCPCS: 99214

== ENCOUNTER 2023-09-23 12:58 | Outpatient (REF) | payer OTHER, MEDICAID, SELFPAY ==
[2023-09-23 14:15] LABS: MANUAL DIFF FLAG NO
[2023-09-23 14:29] LABS: Basophils Percent Auto 0.6 % (0-2); Eosinophils Absolute Auto 0.1 X10*3/uL (0.0-0.4); Eosinophils Percent Auto 1.4 % (0-4); Hematocrit 47.4 % (37.0-47.0); Imm Gran Abs Auto 0.02 X10*3/uL (0.00-0.03); Imm Gran Pct Auto 0.3 % (0.0-0.4); Lymphocytes Absolute Auto 1.6 X10*3/uL (1.2-4.9); Lymphocytes Percent Auto 21.7 % (20-40); Mean Corpuscular HGB Conc 33.8 g/dl (31.0-35.0); Mean Corpuscular Hemoglobin 33.4 pg (27.0-33.0); Mean Platelet Volume 9.3 fL (9.4-12.3); Monocytes Absolute Auto 0.6 X10*3/uL (0.1-1.2); Monocytes Percent Auto 8.1 % (2-11); Neutrophils Absolute Auto 4.9 x10*3/uL (2.0-8.3); Neutrophils Percent Auto 67.9 % (45-73); Platelet Count 274 X10*3/uL (160-400); Red Blood Count 4.79 X10*6/uL (4.20-5.50); Red Cell Distribution Width 13.2 % (11.0-16.0); White Blood Count 7.3 X10*3/uL (4.8-10.8)
[2023-09-23 14:57] LABS: Rheumatoid Factor < 13.0 IU/mL (<15.0)
[2023-09-23 15:06] LABS: Erythrocyte Sedimentation Rate 5 MM/HR (0-20)
[2023-09-23 15:16] LABS: Alanine Aminotransferase 7 U/L (0-31); Albumin Level 4.3 g/dL (3.5-5.0); Alkaline Phosphatase 104 U/L (39-117); Anion Gap 14 (12-20); Aspartate Amino Transferase 13 U/L (5-31); Bilirubin Total 0.5 mg/dL (0.0-1.0); Blood Urea Nitrogen 10 mg/dL (9-16); Calcium 9.9 mg/dL (8.4-10.2); Carbon Dioxide 28 mmol/L (22-29); Chloride 99 mmol/L (96-108); Estimated Glomerular Filt Rate > 60; Glucose Random 88 mg/dL (60-115); Sodium 137 mmol/L (135-145); Total Protein 7.2 g/dL (6.5-8.0)
[2023-09-23 15:32] LABS: TSH reflex Free T4 1.79 uIU/mL (0.32-4.0)
[2023-09-26 11:43] LABS: CRP High Sensitivity 0.7 mg/L
[2023-09-28 12:19] LABS: Anti Nuclear Antibody Screen NEGATIVE (NEGATIVE)
== END 2023-09-23 12:59 | disposition home or self-care (01) ==
LOC: HO.WFDLDS 12:58
PROVIDERS: Visit Provider Family Medicine
DX: Z00.00 Encounter for general adult medical examination without abnormal findings (principal); M25.50 Pain in unspecified joint
CPT/HCPCS: 36415; 80053; 84443; 85025; 85652; 86038; 86141; 86431

== ENCOUNTER 2023-10-26 14:21 | Outpatient (REF) | payer OTHER, MEDICAID, SELFPAY ==
--- NOTE | ~2023-10-26 | MM_ITS ---
EXAMINATION: BONE DENSITOMETRY CLINICAL INDICATION: Age-related osteoporosis without current pathological fracture. COMPARISON: This is the patient's baseline examination. TECHNIQUE: Using a [employer] DXA System (software version: 13.1) manufactured by [employer], dual-energy x-ray absorptiometry was performed of the lumbar spine and left forearm radius 33%. The images are of good technical quality. Summary results are attached. FINDINGS: AP SPINE L1-L4: BMD 0.483 g/cm2, Z-score -3.6, T-score -5.8, osteoporosis. LEFT FOREARM RADIUS 33%: BMD 0.467 g/cm2, Z-score -2.7, T-score -4.7, osteoporosis. IDENTIFIED RISK FACTORS: Menopause, height loss, history of fracture (adult), low body weight, low calcium intake, osteoporosis, recurrent falls, tobacco use (current smoker), secondary osteoporosis. HISTORY OF FRACTURE: Hip, spine, wrist. MEDICATIONS: Calcium, vitamin D. MM/XR DEXA axial skeleton IMPRESSION: 1. DIAGNOSIS: Severe osteoporosis based on the lowest T-score value of -5.8 in the lumbar spine history of fracture of the hip, spine, wrist applying World Health Organization criteria. 2. 10-YEAR FRACTURE RISK PREDICTION, FRAX: According to the guidelines, FRAX calculation should only be performed on patients in the osteopenia bone density category. Therefore, FRAX was not performed on this patient. 3. Treatment Recommendations: NOF guidelines recommend consideration for treatment in postmenopausal women and men age 50 and older presenting with the following: -A hip or vertebral (clinical or morphometric) fracture. -T-score less than or equal to -2.5 at the femoral neck or spine after appropriate evaluation to exclude secondary causes. -Low bone mass at the hip or spine and a 10-year fracture probability by FRAX of greater than or equal to 3% for hip fracture or greater than or equal to 20% for major osteoporotic fracture based on the [place] adapted WHO algorithm. 4. Other Recommendations: All treatment decisions require clinical judgment and consideration of individual patient factors, including patient preferences, comorbidities, previous drug use, risk factors not captured in the FRAX model (e.g. frailty, falls, vitamin D deficiency, increased bone turnover, interval significant decline in bone density) and possible under or overestimation of fracture risk by FRAX. Additional medical evaluation for secondary cause of low bone mineral density may be appropriate. FUTURE SCAN RECOMMENDATION: People with diagnosed cases of osteoporosis or at high risk for fracture should have regular bone mineral density tests. For patients eligible for Medicare, routine testing is allowed once every 2 years. The testing frequency can be increased to one year for patients who have rapidly progressing disease, those who are receiving or discontinuing medical therapy to restore bone mass, or have additional risk factors.
== END 2023-10-26 14:22 | disposition home or self-care (01) ==
LOC: HO.MAMMO 14:21
PROVIDERS: PCP Family Medicine; Visit Provider Family Medicine
DX: Z13.820 Encounter for screening for osteoporosis (principal); Z78.0 Asymptomatic menopausal state; M81.0 Age-related osteoporosis without current pathological fracture
CPT/HCPCS: 77080

== ENCOUNTER 2023-11-04 14:53 | Outpatient (AMB) | payer OTHER, MEDICAID, SELFPAY ==
[2023-11-04 14:59] VITALS: BP 136/78; PULSE 103; O2SAT 97; BMI 21.4
--- NOTE | 2023-11-04 14:59 | MHC.PC.OV ---
Vital Signs 11/04/23 14:59 Height 5 ft Weight 109 lb 6 oz BMI 21.4 BP 136/78 Blood Pressure Location Lt brachial Position Sitting Pulse 103 H Pulse Source Pulse Oximeter Temp Source Oral Pulse Oximetry (%) 97 Oxygen Delivery Method Room Air Intake Visit Reasons: f/u polyarthalgia and labs Intake Note: Patient is here to follow up on polyarthalgia and labs. Allergies alendronate sodium [From Fosamax] Allergy (Mild, Verified 11/04/23 15:06) Hives Tobacco use date assessed: 11/04/23 Fall risk assessment: No Falls in past year Last assessed Fall Risk: 11/04/23 Dental Screening Dental Screen Date: 11/04/23 Did you have a dental visit in the last 12 months?: Yes Did you have a dental problem in the last 6 months where you did not have access to dental care?: No Was dental information given to patient?: Patient has dentist HPI f/u polyarthalgia and labs HPI Details 73 y/o female presents to f/u polyarthralgia and labs. Had made a referral to orthoopedics. Had ordered Celebrex. Continued topical medications as well as gabapentin and tizanidine. She reports she still has not gotten celebrex. She continues taking alendronate for osteoporosis. 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 1. Little interest or pleasure in doing things: nearly every day 2. Feeling down, depressed, or hopeless: several days 3. Trouble falling or staying asleep, or sleeping too much: nearly every day 4. Feeling tired or having little energy: nearly every day 5. Poor appetite or overeating: not at all 6. Feeling bad about yourself - or that you are a failure or have let yourself or your family down: nearly every day 7. Trouble concentrating on things, such as reading the newspaper or watching television: not at all 8. Moving or speaking so slowly that other people could have noticed. Or the opposite - being so fidgety or restless that you have been moving around a lot more than usual: several days 9. Thoughts that you would be better off or of hurting yourself in some way: not at all Total score: 14 Depression Screening Interpretation: Positive Depression Screening Follow-up: In treatment Depression Screening Done: Yes 75782 - PHQ-9 Billing: Yes Source: Developed by Drs. Reuben Martino, Cecilia Arizmendi, Antonio Perry and colleagues, with an educational chay from [employer]. Thrive Questionnaire Date Thrive assessed: 11/04/23 I am a: Patient What is your living situation today?: I have a steady place to live Within the past 12 months, did the food you bought not last and you didn't have the money to get more?: Never true Within the past 12 months, did you worry whether your food would run out before you got money to buy more?: Never true Do you have trouble paying for medicines?: No Do you have trouble getting transportation to medical appointments?: No Do you have trouble paying your heating and electricity bill?: No Do you have trouble taking care of your child, family member or friend?: No Do you have trouble with day-to-day activities such as bathing, preparing meals, shopping, managing finances, etc.?: No Are you currently unemployed and looking for a job?: No Are you interested in more education?: No THRIVE Score: 0 AUDIT C Alcohol Use Questionnaire (AUDIT-C) 1. How often do you have a drink containing alcohol?: Monthly or less 2. How many drinks containing alcohol do you have on a typical day when you are drinking?: 1 or 2 3. How often do you have six or more drinks on one occasion?: Never Total Score: 1 ALTHEA-7 AMB Questionnaire ALTHEA-7 Date ALTHEA - 7 assessed: 11/04/23 Feeling nervous, anxious, or on edge: 2 = More than half the days Not being able to stop or control worryin = Nearly every day Worrying too much about different things: 3 = Nearly every day Trouble relaxin = Nearly every day Being so restless that it is hard to sit still: 3 = Nearly every day Becoming easily annoyed or irritable: 3 = Nearly every day Feeling afraid as if something awful might happen: 0 = Not at all Total ALTHEA-7 score (0-4 normal; 5-9 mild; 10-14 moderate; 15-21 severe): 17 Source: Developed by Drs. Reuben Martino, Cecilia Arizmendi, Antonio Perry and colleagues, with an educational chay from [employer]. ALTHEA-7 Assessment Billing ALTHEA-7 Assessment Tool: ALTHEA-7 Assessment 10892 Review of Systems Const Denies chills, Denies fatigue, Denies fever(s), Denies headache(s) and Denies weakness ENT Denies dizziness and Denies headache(s) Card Denies chest pain, Denies lightheadedness, Denies dyspnea and Denies other (Palpitations) Resp Denies cough, Denies dyspnea, Denies wheezing and Denies other ( shortness of breath) Musc Denies numbness and Denies tingling Neuro Denies dizziness, Denies headache(s), Denies numbness, Denies tingling, Denies paresthesias and Denies weakness Psych Denies anxiety and Denies depression Endo Denies fatigue Aller/Immun Denies wheezing Physical exam (Primary Care) Vital Signs: Last Vital Signs Pulse 103 H 11/04/23 14:59 BP 136/78 11/04/23 14:59 Pulse Ox 97 11/04/23 14:59 Oxygen Delivery Method Room Air 11/04/23 14:59 BMI result Body Mass Index 21.4 Tobacco/Smoking Status: Tobacco use Status Tobacco use date assessed 11/04/23 11/04/23 15:08 Patient Tobacco Use Status Current someday Tobacco 11/04/23 15:08 Tobacco use type Cigarette 11/04/23 15:08 e-Cigarette/Vaping Use Never Used 11/04/23 15:08 PHQ-9: PHQ-9 Score PHQ-9: Total score 14 11/04/23 16:04 Depression Screening Interpretation: Positive Depression Screening Follow-up: In treatment Thrive Assessment: Date of Thrive Assessment Date Thrive assessed 11/04/23 11/04/23 15:17 Const General: no acute distress and well developed Nutritional Appearance: well nourished Orientation/consciousness: patient oriented x3 HENMT Head: Yes normocephalic and Yes atraumatic Eyes General: appearance normal, both eyes and all related structures Pupils: Equal, round and reactive pupils present EOM: EOMs intact bilaterally Resp Effort & Inspection: normal respiratory effort Auscultation: clear to auscultation bilaterally Cardio Rate: regular rate Rhythm: regular rhythm Heart sounds: S1 normal heart sound present, S2 normal heart sound present, no gallops, no murmurs and no rubs Neuro General: patient oriented x3 and gait normal Cranial nerves: Yes Equal, round and reactive pupils present Psych Affect: normal affect Assessment and Plan Assessment & Plan (1) Chronic back pain: Code(s): M54.9 - Dorsalgia, unspecified; G89.29 - Other chronic pain Plan: Chronic?back?pain Start?Celebrex Referred?to?new?[place]?to?consider?injection?therapy?or?other?modalities?of?pain?control (2) Polyarthralgia: Code(s): M25.50 - Pain in unspecified joint Plan: Start?Celebrex (3) Osteoporosis: Code(s): M81.0 - Age-related osteoporosis without current pathological fracture Plan: Patient?just?started?alendronate.??No?problems?with?this?medication?noted She?will?continue?this?and?we?can?follow-up?on?bone?density?testing?Q?2?year (4) Anxiety: Code(s): F41.9 - Anxiety disorder, unspecified Plan: Continue?citalopram?and?trazodone Medications: Refilled celecoxib (Celebrex) 200 mg PO BID 90 days PRN 90 caps 3RF pain celecoxib (Celebrex) 200 mg PO BID PRN 90 caps 3RF pain 90 days cetirizine 10 mg PO DAILY PRN 90 tabs 3RF allergy symptoms 90 days Coding Level of Care Code Est Pt Level 4 (80932) Diagnoses Chronic back pain M54.9; G89.29 Polyarthralgia M25.50 Osteoporosis M81.0 Anxiety F41.9 Additional Codes ALTHEA-7 Assessment Billing - ALTHEA-7 Assessment Tool: ALTHEA-7 Assessment 47475 ([id number])
== END 2023-11-04 16:18 | disposition home or self-care (01) ==
PROVIDERS: PCP Family Medicine; Visit Provider Family Medicine
DX: M54.9 Dorsalgia, unspecified (principal); G89.29 Other chronic pain; M25.50 Pain in unspecified joint; M81.0 Age-related osteoporosis without current pathological fracture; F41.9 Anxiety disorder, unspecified
CPT/HCPCS: 99214

== ENCOUNTER 2024-03-30 14:55 | Outpatient (AMB) | payer OTHER, MEDICAID, SELFPAY ==
--- NOTE | 2024-03-30 15:06 | A.OFFPC_ITS ---
Vital Signs 03/30/24 15:10 Height 5 ft Weight 113 lb 8 oz BMI 22.2 BP 142/82 H Blood Pressure Location Lt brachial Position Sitting Respiration 16 Pulse 87 Pulse Source Pulse Oximeter Pulse Oximetry (%) 90 L Oxygen Delivery Method Room Air Intake Visit Reasons: telehealth follow up in person Intake Note: patient here for follow up [place] Butter Hand Required: No Is last menstrual period known: No Post menopausal: No Patient : No Allergies alendronate sodium [From Fosamax] Allergy (Mild, Verified 03/30/24 15:10) Hives Tobacco use date assessed: 11/04/23 Dental Screening Dental Screen Date: 11/04/23 HPI telehealth follow up in person HPI0 Details 73 y/o female presents via telemedicine to discuss low back pain. Recently seen at emergency department 03/26/24 for back pain. Exam and CT scan showed chronic abnormalities, recommended tylenol as well as her prescribed meds. They report coccyx pain. They note she does have incontinence but feels she is using the bathroom okay. They note she can barely ambulate. Has been taking celebrex, gabapentin which she states does not do anything. Has been taking morphine and last took it about 6 hours ago. Denies any worsening urine loss. HPI Comments History of Present Illness Details Documentation assistance for Yuniel Jurado MD, was provided by Leif Carbajal, Director Of Retail Operations on 03/30/2024 at 4:04 PM EST. I, Dr. Jurado, have read, observed, and verified documentation. 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 Reuben Martino, Cecilia Arizmendi, Antonio Perry and colleagues, with an educational chay from [employer]. Review of Systems Const Denies chills, Denies fatigue, Denies fever(s), Denies headache(s) and Denies weakness ENT Denies dizziness and Denies headache(s) Card Denies dyspnea Resp Denies cough, Denies dyspnea, Denies wheezing and Denies other (shortness of breath) Musc Reports back pain, Denies numbness and Denies tingling Neuro Denies dizziness, Denies headache(s), Denies numbness, Denies tingling and Denies weakness Psych Denies anxiety and Denies depression Endo Denies fatigue Aller/Immun Denies wheezing Physical exam (Primary Care) Vital Signs: Last Vital Signs Pulse 87 03/30/24 15:10 Resp 16 03/30/24 15:10 BP 142/82 H 03/30/24 15:10 Pulse Ox 90 L 03/30/24 15:10 Oxygen Delivery Method Room Air 03/30/24 15:10 BMI result Body Mass Index 22.2 Tobacco/Smoking Status: Tobacco use Status Tobacco use date assessed 11/04/23 03/30/24 15:08 Patient Tobacco Use Status Current someday Tobacco 03/30/24 15:08 Tobacco use type Cigarette 03/30/24 15:08 e-Cigarette/Vaping Use Never Used 03/30/24 15:08 Thrive Assessment: Date of Thrive Assessment Date Thrive assessed 11/04/23 03/30/24 15:08 Const General: well developed; No acute distress Nutritional Appearance: well nourished Orientation/consciousness: patient oriented x3 HENMT Head: Yes normocephalic and Yes atraumatic Eyes General: appearance normal, both eyes and all related structures Pupils: Equal, round and reactive pupils present EOM: EOMs intact bilaterally Resp Effort & Inspection: normal respiratory effort Back/Spine/Pelvis Other: Scoliosis Neuro General: patient oriented x3 and No gait normal Cranial nerves: Yes Equal, round and reactive pupils present Psych Affect: normal affect Assessment and Plan Assessment & Plan (1) Chronic back pain: Code(s): M54.9 - Dorsalgia, unspecified; G89.29 - Other chronic pain Plan: Acute on chronic back pain Pain?is?not?being?controlled?with?c urrent?medications?of?Celebrex?and?gabapentin. Had?received?morphine?at?the?emergency?department. Finishing?up?morphine. Will?have?patient?sign?pain?contract?and?start?Percocet prn. Risks/benefits?w ere?discussed?with?patient Encouraged?her?to?continue?using?Celebrex?and?gabapentin (2) Coccyx pain: Code(s): M53.3 - Sacrococcygeal disorders, not elsewhere classified Plan: Severe?low?back?and?coccyx?pain Affecting?walking?and?lower?extremity?strength Check?MRI Patient?has?an?appointment?with??in?about?a?month (3) Lower extremity weakness: Code(s): R29.898 - Other symptoms and signs involving the musculoskeletal system Plan: Ultimately,?patient?will?need?physical?therapy?but?is?in?severe?pain?at?present Has?an?appointment?with??for?low?back?pain She?is?using?a?cane Will?give?her?a?script?for?a motorized?scooter?for?longer?distances (4) Unsteady gait: Code(s): R26.81 - Unsteadiness on feet Plan: As?above Orders: Orders MR lumbar spine wo con Today M53.3 - Sacrococcygeal disorders, not elsewhere classified, R26.81 - Unsteadiness on feet, R29.898 - Other symptoms and signs involving the musculoskeletal system MR sacrum wo con Today M53.3 - Sacrococcygeal disorders, not elsewhere classified, R26.81 - Unsteadiness on feet, R29.898 - Other symptoms and signs involving the musculoskeletal system Medications: New miscellaneous medical supply Motorized?scooter,?As directed, 999 days 1 ea 0RF G89.29 - Other chronic pain, M40.209 - Unspecified kyphosis, site unspecified, M41.9 - Scoliosis, unspecified, M54.30 - Sciatica, unspecified side, M54.9 - Dorsalgia, unspecified, R26.81 - Unsteadiness on feet, R29.898 - Other symptoms and signs involving the musculoskeletal system, Z96.9 - Presence of functional implant, unspecified oxycodone-acetaminophen 5-325 mg (Percocet) [employer] Verified. Partial Fill upon patient request. 1 tab PO Q6H 30 days PRN 120 tabs 0RF pain walker Lightweight walker daily?As directed, 999 days 1 ea 0RF G89.29 - Other chronic pain, M40.209 - Unspecified kyphosis, site unspecified, M41.9 - Scoliosis, unspecified, M54.30 - Sciatica, unspecified side, M54.9 - Dorsalgia, unspecified, R26.81 - Unsteadiness on feet, R29.898 - Other symptoms and signs involving the musculoskeletal system Coding Level of Care Code Est Pt Level 4 (03264) Diagnoses Chronic back pain M54.9; G89.29 Coccyx pain M53.3 Lower extremity weakness R29.898 Unsteady gait R26.81
[2024-03-30 15:10] VITALS: BP 142/82; PULSE 87; RESP 16; O2SAT 90; BMI 22.2
== END 2024-03-30 16:21 | disposition home or self-care (01) ==
LOC: HO.HMGFM 14:55
PROVIDERS: PCP Family Medicine; Visit Provider Family Medicine
DX: M54.9 Dorsalgia, unspecified (principal); G89.29 Other chronic pain; M53.3 Sacrococcygeal disorders, not elsewhere classified; R29.898 Other symptoms and signs involving the musculoskeletal system; R26.81 Unsteadiness on feet
CPT/HCPCS: 99214

== ENCOUNTER 2024-04-21 08:50 | Outpatient (REF) | payer OTHER, MEDICAID, SELFPAY ==
--- NOTE | ~2024-04-21 | MR_ITS ---
EXAMINATION: MR LUMBAR SPINE WITHOUT CONTRAST CLINICAL INFORMATION: Scoliosis, osteoporosis, limited range of motion COMPARISON: None TECHNIQUE: MRI of the lumbar spine was obtained using routine sequences without contrast. FINDINGS: Diffuse fatty marrow signal throughout the osseous structures compatible with osteopenia. Partially imaged asymmetric edema in the left lateral sacrum suspicious for sacral insufficiency fracture that would be better diagnostically assessed on CT of the pelvis. S-shaped thoracolumbar scoliosis. Slight right lateral listhesis at T11-T12. Sagittal alignment is preserved. Slight retrolisthesis at T12-L1 and slight anterolisthesis at L5-S1. Chronic L5 pars defects are not excluded though assessment is limited due to motion artifact and this could be better characterized on CT, as clinically warranted. Cement augmentation material within the L1 vertebral body with associated chronic height loss. There is a subacute appearing biconcave L2 compression fracture with bandlike low signal related to the fracture line traversing the midportion of the vertebral body extending to the posterior cortex. Diffuse edema of the L2 vertebral body extending into the bilateral posterior elements. There is approximately 60% L2 vertebral body height loss with minimal bony retropulsion of the posterior upper endplate. Additional subacute appearing impaction fracture along the L4 superior endplate with paralleling marrow edema and associated 30% height loss. No bony retropulsion. Additional multilevel compression fractures of the T11, T12, and L5 vertebral bodies with variable height loss, most pronounced at T12, appear chronic. There is relative preservation of the intervertebral disc heights related to biconcavity of multilevel compression fractures. Multilevel type I Modic endplate changes within the lower thoracic spine, most pronounced ventrally at T12-L1 with ventral annular fissure. Expansion and heterogeneous fluid signal intensity within the T11-T12 intervertebral disc space. Suspected lipid poor intraosseous hemangioma within the posterior T10 vertebral body. Benign appearing intraosseous cysts within the bilateral sacrum. Level by level detail as follows: L1-L2: Left central annular fissure. No spinal canal or neural foraminal stenosis. L2-L3: Trace annular disc bulge. No spinal canal or neural foraminal stenosis. L3-L4: Trace annular disc bulge and mild facet arthrosis. No spinal canal or neural foraminal stenosis. L4-L5: Annular disc bulge and mild facet arthrosis without spinal canal or neural foraminal stenosis. L5-S1: Bilateral facet arthrosis with posterior disc uncovering. No spinal canal stenosis. Mild bilateral neural foraminal narrowing. The conus medullaris terminates at the level of L1-L2. The distal spinal cord is normal in appearance. No epidural fluid collection, hematoma, or mass. There is moderate fatty atrophy of the paraspinal musculature. T2 hyperintense hepatic lesions suggestive of a cyst. The abdominal aorta is of normal contour and caliber. Susceptibility artifact related to cephalomedullary nailing of the bilateral proximal femurs. MR/MR lumbar spine wo con IMPRESSION: 1. Diffuse fatty marrow signal compatible with osteopenia. 2. Partially imaged asymmetric edema in the left lateral sacrum suspicious for sacral insufficiency fracture that would be better diagnostically assessed on CT of the pelvis. 3. Multilevel osteoporotic-type compression fractures as above, including subacute appearing fractures at L2 and L4 with associated 60% and 30% height loss, respectively. Minimal bony retropulsion at L2 without significant spinal canal compromise. 4. S-shaped thoracolumbar scoliosis. Mild spondylosis without significant spinal canal or neural foraminal stenosis at any level. Electronically signed by: Cathi Brewer MD 04/24/2024 05:10 PM EDT
--- NOTE | ~2024-04-21 | MR_ITS ---
EXAMINATION: MR SACRUM WITHOUT CONTRAST INDICATION: M53.3 - Sacrococcygeal disorders, not elsewhere classified. Pain. Unable to bend or move x1 month. COMPARISON: Radiograph of the pelvis dated 05/03/2023. TECHNIQUE: Multiplanar MR imaging was obtained through the sacrum without contrast on a 1.5 Ibeth magnet. FINDINGS: Sacrum: There is a linear band of intense edema signal within the left sacral ala within Zuhair zone 1 extending from S1 through S3, more pronounced anteriorly, and associated with ill-defined low signal intensity on the T1-weighted images, most consistent with an insufficiency fracture. No corresponding fracture in the right sacral ala. No transverse component is identified. No displaced fractures. There are small cystic foci within the bilateral sacral alae, each measuring up to 1 cm in diameter, which are of doubtful clinical significance. The central canal in the sacrum appears patent without appreciable central canal or foraminal narrowing. 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 Lower Lumbar Spine: Better assessed on the dedicated MRI. Superior endplate compression deformity at L4 is partially observed. There is grade 1 anterolisthesis of L5 on S1 with chronic bilateral pars defects and associated facet arthropathy. Other Osseous Structures: Minimal osteoarthritis in the hips. Antegrade intramedullary nails and femoral neck screws are present bilaterally and produce surrounding metal artifact. Pubic symphysis is unremarkable. Muscles and Tendons: Mild generalized muscle atrophy in the pelvis. No focal edema signal. No appreciable tendon tears. Joint Fluid and Bursae: No effusions or synovitis. No bursitis. Intrapelvic Soft Tissues: No acute findings. No adenopathy. No intraperitoneal free fluid. MR/MR sacrum wo con IMPRESSION: 1. Uumyo-go-rxkkvfjz insufficiency fracture in the left sacral ala. 2. 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 3. Grade 1 anterolisthesis of L5 on S1 with chronic bilateral pars defects and associated facet arthropathy. Electronically signed by: Adolfo Horton MD 04/24/2024 12:24 PM EDT RP
== END 2024-04-21 08:51 | disposition home or self-care (01) ==
LOC: HO.MRI 08:50
PROVIDERS: PCP Family Medicine; Visit Provider Family Medicine
DX: M53.3 Sacrococcygeal disorders, not elsewhere classified (principal); R26.81 Unsteadiness on feet; R29.898 Other symptoms and signs involving the musculoskeletal system
CPT/HCPCS: 72148; 72195

== ENCOUNTER → 2024-05-08 08:38 | Outpatient (BNVA) | payer OTHER, MEDICAID, SELFPAY | PROVIDERS: PCP Family Medicine; Visit Provider Family Medicine | DX: M53.3 Sacrococcygeal disorders, not elsewhere classified (principal); M81.0 Age-related osteoporosis without current pathological fracture ==

== ENCOUNTER 2024-05-08 08:40 | Outpatient (AMB) | payer OTHER, MEDICAID, SELFPAY ==
--- NOTE | 2024-05-08 08:46 | A.OFFPC_ITS ---
Vital Signs 05/08/24 08:48 Height 5 ft Weight 110 lb 4 oz BMI 21.5 BP 120/70 Blood Pressure Location Lt brachial Position Sitting Respiration 12 Pulse 83 Pulse Source Pulse Oximeter Temp 97.7 F Temp Source Tympanic Pulse Oximetry (%) 95 Oxygen Delivery Method Room Air Intake Visit Reasons: follow up back pain Intake Note: f/u back pain Allergies alendronate sodium [From Fosamax] Allergy (Mild, Verified 05/08/24 08:47) Hives Medication List - Last Reconciled 05/08/24 by Yuniel Jurado MD acyclovir 400 mg PO DAILY alendronate 70 mg PO QWEEK 28 days celecoxib (Celebrex) 200 mg PO BID PRN 90 days cetirizine 10 mg PO DAILY PRN 90 days cholecalciferol (vitamin D3) 50 mcg PO DAILY 90 days citalopram 30 mg (1.5 x 20 mg) PO DAILY 90 days diclofenac sodium 1% (Arthritis Pain (diclofenac)) 4 grams topical QID 30 days gabapentin 1-2 caps p.o. q.i.d. orally 4 times a day; 30 days lidocaine 5% 1 patch topical DAILY 30 days lisinopril 10 mg PO DAILY 90 days miscellaneous medical supply Motorized?scooter,?As directed, 999 days oxybutynin chloride 5 mg PO TID 30 days oxycodone-acetaminophen 5-325 mg (Percocet) 1 tab PO Q6H PRN 30 days tiotropium bromide 2.5 mcg/actuation (Spiriva Respimat) 2 puffs inhalation DAILY trazodone 150 mg (1.5 x 100 mg) PO BEDTIME 30 days walker Lightweight walker daily?As directed, 999 days Tobacco use date assessed: 11/04/23 Dental Screening Dental Screen Date: 11/04/23 HPI follow up back pain HPI Details 73 y/o female presents to f/u back pain. MRI 04/21/24 showed: 1. Ujcew-ct-gqgynqxx insufficiency fracture in the left sacral ala. 2. Unof-vm-xicwqjhz osteoarthritis in th e sacroiliac joints. 3. Grade 1 anterolisthesis of L5 on S1 w ith chronic bilateral pars defects and associated facet arthropathy. Had recently seen Dr. Hancock yesterday, 05/07/24. Pt notes she continues taking alendronate once a week for her osteoporosis. Had made a script for a scooter - pt notes they had contacted her but had been unable to answer. HPI Comments History of Present Illness Details Documentation assistance for Yuniel Jurado MD, was provided by Leif Carbajal, [employer] on 05/08/2024 at 9:13 AM JOEY. I, Dr. Jurado, have read, observed, and verified documentation. 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 Reuben Martino, Cecilia Arizmendi, Antonio Perry and colleagues, with an educational chay from [employer] Review of Systems Const Denies chills, Denies fatigue, Denies fever(s), Denies headache(s) and Denies weakness ENT Denies dizziness and Denies headache(s) Card Denies dyspnea Resp Denies cough, Denies dyspnea, Denies wheezing and Denies other (shortness of breath) Musc Denies numbness and Denies tingling Neuro Denies dizziness, Denies headache(s), Denies numbness, Denies tingling and Denies weakness Psych Denies anxiety and Denies depression Endo Denies fatigue Aller/Immun Denies wheezing Physical exam (Primary Care) Vital Signs: Last Vital Signs Temp 97.7 F 05/08/24 08:48 Pulse 83 05/08/24 08:48 Resp 12 05/08/24 08:48 BP 120/70 05/08/24 08:48 Pulse Ox 95 05/08/24 08:48 Oxygen Delivery Method Room Air 05/08/24 08:48 BMI result Body Mass Index 21.5 Tobacco/Smoking Status: Tobacco use Status Tobacco use date assessed 11/04/23 05/08/24 08:52 Patient Tobacco Use Status Current someday Tobacco 05/08/24 08:52 Tobacco use type Cigarette 05/08/24 08:52 e-Cigarette/Vaping Use Never Used 05/08/24 08:52 Thrive Assessment: Date of Thrive Assessment Date Thrive assessed 11/04/23 05/08/24 08:52 Const General: well developed; No acute distress Nutritional Appearance: well nourished Orientation/consciousness: patient oriented x3 HENMT Head: Yes normocephalic and Yes atraumatic Eyes General: appearance normal, both eyes and all related structures Pupils: Equal, round and reactive pupils present EOM: EOMs intact bilaterally Resp Effort & Inspection: normal respiratory effort Auscultation: clear to auscultation bilaterally Cardio Rate: regular rate Rhythm: regular rhythm Heart sounds: S1 normal heart sound present, S2 normal heart sound present, no gallops, no murmurs and no rubs Neuro General: patient oriented x3 and gait normal Cranial nerves: Yes Equal, round and reactive pupils present Psych Affect: normal affect Assessment and Plan Assessment & Plan (1) Sacral pain: Code(s): M53.3 - Sacrococcygeal disorders, not elsewhere classified Plan: Severe?low?back?and?coccyx?pain Affecting?walking?and?lower?extremity?strength MRI Lumabr and Sacral spine showed: Multilevel compression defects of Lumbar spine and anterlisthesis L5 on S1 without significant canal narrowing. Jeehw-yy-givlwoad insufficiency fracture in the left sacral ala. 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 Grade 1 anterolisthesis of L5 on S1 with chronic bilateral pars defects and associated facet arthropathy. Ordered [employer] scooter - was?contacted?about?th is?but?needs?to?contact?the?company?again. Started Pain contract and Percocet. Pain control now adequate. Using now as prescribed and using Celebrex as well. Pt had appt w/ Dr Hancock yesterday. ?have?not?sent?me?a?note?yet?but?patient?says?they?are?getting?her?a?back?brac e?and?planning?surgical?intervention. Continue?current?pain?medications?including?Percocet?and?Celebrex.??Also?gabapen tin. No?changes?to?her?regimen?currently.??We?discussed?that?in?the?future?if?she?has ?appropriate?interventions,?we?would?likely?want?to?decrease?this?and?her?specia list?at??Santi's?office?had?recommended?tramadol?at?some?point. (2) Osteoporosis: Code(s): M81.0 - Age-related osteoporosis without current pathological fracture Plan: Taking Alendronate Refilled Medications: Refilled alendronate 70 mg PO QWEEK 28 days 4 tabs 6RF M81.0 - Age-related osteoporosis without current pathological fracture oxycodone-acetaminophen 5-325 mg (Percocet) MassPat Verified. Partial Fill upon patient request. 1 tab PO Q6H 30 days PRN 120 tabs 0RF pain celecoxib (Celebrex) 200 mg PO BID 90 days PRN 90 caps 3RF pain Coding Level of Care Code Est Pt Level 3 (67323) Diagnoses Sacral pain M53.3 Osteoporosis M81.0
[2024-05-08 08:48] VITALS: BP 120/70; PULSE 83; RESP 12; TEMP 36.5; O2SAT 95; BMI 21.5
== END 2024-05-08 09:26 | disposition home or self-care (01) ==
PROVIDERS: PCP Family Medicine; Visit Provider Family Medicine
DX: M53.3 Sacrococcygeal disorders, not elsewhere classified (principal); M81.0 Age-related osteoporosis without current pathological fracture

== ENCOUNTER 2024-08-23 14:52 | Outpatient (AMB) | payer OTHER, MEDICAID, SELFPAY ==
--- NOTE | 2024-08-23 14:59 | A.OFFPC_ITS ---
Vital Signs 08/23/24 15:06 Height 5 ft Weight 107 lb BMI 20.9 BP 152/94 H Blood Pressure Location Rt brachial Position Sitting Respiration 16 Pulse 97 Pulse Source Pulse Oximeter Temp 98.6 F Temp Source Oral Pulse Oximetry (%) 95 Oxygen Delivery Method Room Air Intake Visit Reasons: Cough Intake Note: patient here c/o having a cough Predictive Maintenance Technician Required: No Is last menstrual period known: No Post menopausal: No Patient : No Allergies alendronate sodium [From Fosamax] Allergy (Mild, Verified 08/23/24 15:03) Hives Tobacco use date assessed: 08/23/24 Fall risk assessment: 1 Fall in past year Last assessed Fall Risk: 08/23/24 Dental Screening Dental Screen Date: 08/23/24 Did you have a dental visit in the last 12 months?: Yes Did you have a dental problem in the last 6 months where you did not have access to dental care?: No Was dental information given to patient?: Patient has dentist HPI Cough HPI Details 74 y/o female presents today with compla ints of a cough. She notes she had been feeling unwell since around late June. She does note cough has resolved. Reports ongoing polyarthralgia. Also reports hip pain. 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 1. Little interest or pleasure in doing things: more than half the days 2. Feeling down, depressed, or hopeless: nearly every day 3. Trouble falling or staying asleep, or sleeping too much: nearly every day 4. Feeling tired or having little energy: nearly every day 5. Poor appetite or overeating: several days 6. Feeling bad about yourself - or that you are a failure or have let yourself o r your family down: more than half the days 7. Trouble concentrating on things, such as reading the newspaper or watching television: more than half the days 8. Moving or speaking so slowly that other people could have noticed. Or the opposite - being so fidgety or restless that you have been moving around a lot more than usual: not at all 9. Thoughts that you would be better off or of hurting yourself in some way: not at all Total score: 16 Source: Developed by Drs. Reuben Martino, Cecilia Arizmendi, Antonio Perry and colleagues, with an educational chay from [employer]. Thrive Questionnaire Date Thrive assessed: 11/04/23 I am a: Patient What is your living situation today?: I have a steady place to live Within the past 12 months, did the food you bought not last and you didn't have the money to get more?: Sometimes True Within the past 12 months, did you worry whether your food would run out before you got money to buy more?: Sometimes True Do you have trouble paying for medicines?: No Do you have trouble getting transportation to medical appointments?: No Do you have trouble paying your heating and electricity bill?: No Do you have trouble taking care of your child, family member or friend?: No Do you have trouble with day-to-day activities such as bathing, preparing meals, shopping, managing finances, etc.?: Yes Are you currently unemployed and looking for a job?: No Are you interested in more education?: No Please select the resources that you would like help with: None Currently or been in a relationship where the following occur: No concerns reported THRIVE Score: 2 AUDIT C Alcohol Use Questionnaire (AUDIT-C) 1. How often do you have a drink containing alcohol?: 2-4 times a month 2. How many drinks containing alcohol do you have on a typical day when you are drinking?: 1 or 2 3. How often do you have six or more drinks on one occasion?: Never Total Score: 2 ALTHEA-7 AMB Questionnaire ALTHEA-7 Date ALTHEA - 7 assessed: 11/04/23 Feeling nervous, anxious, or on edge: 3 = Nearly every day Not being able to stop or control worryin = Nearly every day Worrying too much about different things: 1 = Several days Trouble relaxin = Nearly every day Being so restless that it is hard to sit still: 1 = Several days Becoming easily annoyed or irritable: 3 = Nearly every day Feeling afraid as if something awful might happen: 3 = Nearly every day Total ALTHEA-7 score (0-4 normal; 5-9 mild; 10-14 moderate; 15-21 severe): 17 Source: Developed by Drs. Reuben Martino, Cecilia Arizmendi, Antonio Perry and colleagues, with an educational chay from [employer]. Review of Systems Const Denies chills, Denies fatigue, Denies fever(s), Denies headache(s) and Denies weakness ENT Denies dizziness and Denies headache(s) Card Denies dyspnea Resp Reports cough, Denies dyspnea and Denies wheezing Musc Denies numbness and Denies tingling Neuro Denies dizziness, Denies headache(s), Denies numbness, Denies tingling and Denies weakness Psych Denies anxiety and Denies depression Endo Denies fatigue Aller/Immun Denies wheezing Physical exam (Primary Care) Vital Signs: Last Vital Signs Temp 98.6 F 08/23/24 15:06 Pulse 97 08/23/24 15:06 Resp 16 08/23/24 15:06 BP 152/94 H 08/23/24 15:06 Pulse Ox 95 08/23/24 15:06 Oxygen Delivery Method Room Air 08/23/24 15:06 BMI result Body Mass Index 20.9 Tobacco/Smoking Status: Tobacco use Status Tobacco use date assessed 08/23/24 08/23/24 15:10 Patient Tobacco Use Status Current someday Tobacco 08/23/24 15:00 Tobacco use type Cigarette 08/23/24 15:00 e-Cigarette/Vaping Use Never Used 08/23/24 15:00 PHQ-9: PHQ-9 Score PHQ-9: Total score 16 08/23/24 15:00 Thrive Assessment: Date of Thrive Assessment Date Thrive assessed 11/04/23 08/23/24 15:00 Currently or been in a relationship where the following occur: No concerns reported Const General: well developed; No acute distress Nutritional Appearance: well nourished Orientation/consciousness: patient oriented x3 HENMT Head: Yes normocephalic and Yes atraumatic Eyes General: appearance normal, both eyes and all related structures Pupils: Equal, round and reactive pupils present EOM: EOMs intact bilaterally Resp Effort & Inspection: normal respiratory effort Neuro General: patient oriented x3 and gait normal Cranial nerves: Yes Equal, round and reactive pupils present Psych Affect: normal affect Coding Level of Care Code Est Pt Level 4 (85247) Diagnoses Cough R05.9 Polyarthralgia M25.50 Hypertension I10 Hip pain M25.559 Assessment & Plan Assessment & Plan (1) Cough: Code(s): R05.9 - Cough, unspecified Category: Medical Plan: Patient?says?cough?has?resolved.??She?does?have?COPD?and?has?a?follow-up?appoint ment?with?her?head of ethics and compliance. Lungs?are?clear She?says?she?does?not?currently?have?a?rescue?inhaler?so?I?send?script?for?Sonia baker Follow-up?with?pulmonology?as?recommended (2) Polyarthralgia: Code(s): M25.50 - Pain in unspecified joint Category: Medical Plan: Longstanding?chronic?pain,?fairly?well?controlled?with?Celebrex?and?Percocet?for ?breakthrough?pain. Pill?count?is?acceptable She?is?tolerating?medication?well Continue?current?medication?regimen Follow-up?with? (3) Hypertension: Code(s): I10 - Essential (primary) hypertension Category: Medical Plan: Blood?pressure?is?too?high.??She?is?taking?lisinopril?10?mg?daily.??Goal?is?less ?than?140/90 Increase?lisinopril?from?10?mg?to?20?mg (4) Hip pain: Code(s): M25.559 - Pain in unspecified hip Category: Medical Plan: Worsening?bilateral?hip?pain Continue?Celebrex Follow-up?with??Santi Medications: New albuterol sulfate 90 mcg/actuation (Ventolin HFA) 2 puffs inhalation Q4-6H 30 days PRN 8.5 grams 3RF shortness of breath or wheezing amoxicillin 1,000 mg (2 x 500 mg) PO ONCE 1 day PRN 2 tabs 0RF Dental procedure Changed From lisinopril 10 mg PO DAILY 90 days 90 tabs 1RF To lisinopril 20 mg PO DAILY 90 days 90 tabs 1RF Refilled walker Lightweight walker daily?As directed, 999 days 1 ea 0RF G89.29 - Other chronic pain, M40.209 - Unspecified kyphosis, site unspecified, M41.9 - Scoliosis, unspecified, M54.30 - Sciatica, unspecified side, M54.9 - Dorsalgia, unspecified, R26.81 - Unsteadiness on feet, R29.898 - Other symptoms and signs involving the musculoskeletal system lisinopril 10 mg PO DAILY 90 days 90 tabs 1RF celecoxib (Celebrex) 200 mg PO BID 90 days PRN 90 caps 3RF pain oxycodone-acetaminophen 5-325 mg (Percocet) [employer] Verified. Partial Fill upon patient request. 1 tab PO Q6H 30 days PRN 120 tabs 0RF pain G89.29 - Other chronic pain, M54.9 - Dorsalgia, unspecified
[2024-08-23 15:06] VITALS: BP 152/94; PULSE 97; RESP 16; TEMP 37; O2SAT 95; BMI 20.9
== END 2024-08-23 15:45 | disposition home or self-care (01) ==
PROVIDERS: PCP Family Medicine; Visit Provider Family Medicine
DX: R05.9 Cough, unspecified (principal); M25.50 Pain in unspecified joint; I10 Essential (primary) hypertension; M25.559 Pain in unspecified hip

== ENCOUNTER → 2024-08-23 14:52 | Outpatient (BNVA) | payer OTHER, MEDICAID, SELFPAY | PROVIDERS: PCP Family Medicine; Visit Provider Family Medicine ==

== ENCOUNTER 2024-12-20 14:23 | Outpatient (AMB) | payer OTHER, MEDICAID, SELFPAY ==
--- NOTE | 2024-12-20 14:25 | A.OFFPC_ITS ---
Vital Signs 12/20/24 14:37 Height 5 ft BMI Reason not done Patient refused/unable BP 126/70 Blood Pressure Location Lt brachial Position Sitting Respiration 14 Pulse 98 Pulse Source Pulse Oximeter Temp 97.8 F Temp Source Oral Pulse Oximetry (%) 93 Oxygen Delivery Method Room Air Intake Visit Reasons: f/u chronic conditions Intake Note: patient schedule for follow-up for chronic condition patient fall 2 week ago and is having pain on right side. and she's non weight barring on she have some incontinence. Confectionery Laboratory Manager Required: No Information Interpreted: clinical only Is last menstrual period known: No Post menopausal: No Patient : No Allergies alendronate sodium [From Fosamax] Allergy (Mild, Verified 12/20/24 14:33) Hives Medication List - Last Reconciled 12/20/24 by Yuniel Jurado MD acyclovir 400 mg PO DAILY albuterol sulfate 90 mcg/actuation (Ventolin HFA) 2 puffs inhalation Q4-6H PRN 30 days alendronate 70 mg PO QWEEK 28 days celecoxib (Celebrex) 200 mg PO BID PRN 90 days cetirizine 10 mg PO DAILY PRN 90 days cholecalciferol (vitamin D3) 50 mcg PO DAILY 90 days citalopram 30 mg (1.5 x 20 mg) PO DAILY 90 days diclofenac sodium 1% (Arthritis Pain (diclofenac)) 4 grams topical QID 30 days gabapentin 1-2 caps p.o. q.i.d. orally 4 times a day; 30 days lidocaine 5% 1 patch topical DAILY 30 days lisinopril 20 mg PO DAILY 90 days miscellaneous medical supply Motorized?scooter,?As directed, 999 days oxybutynin chloride 5 mg PO TID 30 days oxycodone-acetaminophen 5-325 mg (Percocet) 1 tab PO Q6H PRN 30 days trazodone 150 mg (1.5 x 100 mg) PO BEDTIME 30 days walker Lightweight walker daily?As directed, 999 days Tobacco use date assessed: 12/20/24 Fall risk assessment: 1 Fall in past year Dental Screening Dental Screen Date: 12/20/24 Did you have a dental visit in the last 12 months?: Yes Did you have a dental problem in the last 6 months where you did not have access to dental care?: Yes Was dental information given to patient?: No HPI f/u chronic conditions HPI Details 74 y/o female presents to f/u hypertensi on, chronic conditions. Had increased lisinopril from 10mg to 20mg daily. Pt reports she had a mechanical trip about 10 days ago. She reports R sided pain. Reports ongoing unsteady gait, lower extremity weakness. She reports incontinence. ON LICENSE OF [facility] Medical History Pure hypercholesterolemia Carpal tunnel syndrome Smoking Osteoporosis Overactive bladder Kyphoscoliosis deformity of spine Chronic back pain greater than 3 months duration Sternal fracture COPD with emphysema Ascending aorta dilation Surgical History History of kyphoplasty History of hip surgery Social History Household Members: Spouse Housing: House Are you a primary home care scheduler to a significant other at home: No Do you presently have visiting nurse or other home services: Yes (hydraulic operator) Patient Tobacco Use Status: Current someday Tobacco user Tobacco use type: Cigarette Cigarette Packs Per Day: 0.5 Cigarettes Per Day: 10.0 e-Cigarette/Vaping Use: Never Used Second Hand Smoke Exposure: No service: No Current occupational status: retired and disabled Current occupational exposures/hazards: No Cognitive needs: No Hearing needs: No Vision needs: No Questionnaire Thrive Questionnaire Date Thrive assessed: 08/23/24 I am a: Patient What is your living situation today?: I have a steady place to live Within the past 12 months, did the food you bought not last and you didn't have the money to get more?: Sometimes True Within the past 12 months, did you worry whether your food would run out before you got money to buy more?: Sometimes True Do you have trouble paying for medicines?: No Do you have trouble getting transportation to medical appointments?: No Do you have trouble paying your heating and electricity bill?: No Do you have trouble taking care of your child, family member or friend?: No Do you have trouble with day-to-day activities such as bathing, preparing meals, shopping, managing finances, etc.?: Yes Are you currently unemployed and looking for a job?: No Are you interested in more education?: No Please select the resources that you would like help with: None Currently or been in a relationship where the following occur: No concerns reported THRIVE Score: 2 ALTHEA-7 AMB Questionnaire ALTHEA-7 Date ALTHEA - 7 assessed: 11/04/23 Source: Developed by Drs. Reuben Martino, Cecilia Arizmendi, Antonio Perry and colleagues, with an educational chay from [employer]. Review of Systems Const Denies chills, Denies fatigue, Denies fever(s), Denies headache(s) and Denies weakness ENT Denies dizziness and Denies headache(s) Card Denies dyspnea Resp Denies cough, Denies dyspnea, Denies wheezing and Denies other (shortness of breath) Musc Denies numbness and Denies tingling Neuro Denies dizziness, Denies headache(s), Denies numbness, Denies tingling and Denies weakness Psych Denies anxiety and Denies depression Endo Denies fatigue Aller/Immun Denies wheezing Physical exam (Primary Care) Vital Signs: Last Vital Signs Temp 97.8 F 12/20/24 14:37 Pulse 98 12/20/24 14:37 Resp 14 12/20/24 14:37 BP 126/70 12/20/24 14:37 Pulse Ox 93 12/20/24 14:37 Oxygen Delivery Method Room Air 12/20/24 14:37 Tobacco/Smoking Status: Tobacco use Status Tobacco use date assessed 12/20/24 12/20/24 14:38 Patient Tobacco Use Status Current someday Tobacco 12/20/24 14:29 Tobacco use type Cigarette 12/20/24 14:29 e-Cigarette/Vaping Use Never Used 12/20/24 14:29 Thrive Assessment: Date of Thrive Assessment Date Thrive assessed 08/23/24 12/20/24 14:29 Currently or been in a relationship where the following occur: No concerns reported Const General: well developed; No acute distress Nutritional Appearance: well nourished Orientation/consciousness: patient oriented x3 HENMT Head: Yes normocephalic and Yes atraumatic Eyes General: appearance normal, both eyes and all related structures Pupils: Equal, round and reactive pupils present EOM: EOMs intact bilaterally Resp Effort & Inspection: normal respiratory effort Neuro General: patient oriented x3 and No gait normal Cranial nerves: Yes Equal, round and reactive pupils present Psych Affect: normal affect Coding Level of Care Code Est Pt Level 5 (51704) Diagnoses Hypertension I10 Hip pain M25.559 Status post fall Z91.81 Urinary incontinence R32 Right arm pain M79.601 Lower extremity weakness R29.898 Unsteady gait R26.81 Chronic back pain M54.9; G89.29 Assessment & Plan Assessment & Plan (1) Hypertension: Code(s): I10 - Essential (primary) hypertension Category: Medical Plan: S/p?fall?about?10?days?ago?and?patient?was?using?more?of?her?Percocet?than?presc ribed. We?had?a?long?talk?about?this.??She?will?not ?use?more?than?prescribed.??We?discussed?that?if?she?does?this?again?I?would?nee d?to?not prescribe?anything?more?for?pain?for?her?except?not?opioid?medications. Will?give?her?a?script?for?buprenorphine?75?mcg?q.12 times?15?days?to?get?her?through?to?her?usual?refill?day. This?is?equivalent?to?approximately?1?Percocet?per?day.??She?still?has enough?Percocet?for?2?per?day?and?her?usual?prescriptions?for?4?per?day. This?is?a?decrease?in?medication?but?using?a a different opiod often improves analgesia. (2) Hip pain: Code(s): M25.559 - Pain in unspecified hip Category: Medical Plan: Checking?x-ray?of?hip?and?pelvis?as?well?as?lumbar?spine (3) Status post fall: Code(s): Z91.81 - History of falling Category: Medical Plan: S/p?fall This?appears?to?have?been?a?mechanical?trip?and?fall.??However, she?does?have?lower?extremity?weakness?which?seems?worse. Will send?visiting?nurse?for?physical?therapy?at?home (4) Urinary incontinence: Code(s): R32 - Unspecified urinary incontinence Category: Medical Plan: Worsening?urinary?incontinence Checking?urinalysis?as?well?as?cultures?and?sensitivity Referring?her?to?Urogynecology Scripts?for?adult?briefs (5) Right arm pain: Code(s): M79.601 - Pain in right arm Category: Medical Plan: Right?wrist?and?forearm?pain?and?swelling Possible?fracture?as?she?is?s/p?fall?onto?right?side Continue?wearing?brace?loosely Check?x-rays?from?elbow?to?hand (6) Lower extremity weakness: Code(s): R29.898 - Other symptoms and signs involving the musculoskeletal system Category: Medical Plan: As?above (7) Unsteady gait: Code(s): R26.81 - Unsteadiness on feet Category: Medical Plan: As?above Also?giving?patient?script?for?walker?indoors?and?wheelchair?out?of?doors Scooter?for?longer?distances (8) Chronic back pain: Code(s): M54.9 - Dorsalgia, unspecified; G89.29 - Other chronic pain Category: Medical Plan: As?above Orders: Orders UA and rflx microscopic Today R32 - Unspecified urinary incontinence XR forearm RT 2V Today M79.601 - Pain in right arm XR hand RT 2V Today M79.601 - Pain in right arm XR hip RT w PEL1V Today M25.559 - Pain in unspecified hip Urine Culture Today R32 - Unspecified urinary incontinence XR elbow RT 2V Today M79.601 - Pain in right arm XR wrist RT 2V Today M79.601 - Pain in right arm XR lumbar spine 2-3V Today M25.559 - Pain in unspecified hip Referrals [facility] Referral G89.29 - Other chronic pain, M25.50 - Pain in unspecified joint, M54.42 - Lumbago with sciatica, left side, M54.9 - Dorsalgia, unspecified, R26.81 - Unsteadiness on feet, R29.898 - Other symptoms and signs involving the musculoskeletal system Urogynecology Referral R32 - Unspecified urinary incontinence Medications: New miscellaneous medical supply Wheelchair. As directed, 999 days 1 ea 0RF G89.29 - Other chronic pain, M25.50 - Pain in unspecified joint, M54.42 - Lumbago with sciatica, left side, M54.9 - Dorsalgia, unspecified, M79.601 - Pain in right arm, R26.81 - Unsteadiness on feet, Z91.81 - History of falling diaper,brief,adult,disposable 4 times a day, As directed, 30 days 120 ea 3RF R32 - Unspecified urinary incontinence buprenorphine HCl 75 mcg buccal Q12H 15 days 30 ea 0RF G89.29 - Other chronic pain, M25.50 - Pain in unspecified joint, M54.42 - Lumbago with sciatica, left side, M54.9 - Dorsalgia, unspecified, R32 - Unspecified urinary incontinence Refilled oxybutynin chloride 5 mg PO TID 30 days 90 tabs 3RF walker Lightweight walker daily?As directed, 999 days 1 ea 0RF G89.29 - Other chronic pain, M40.209 - Unspecified kyphosis, site unspecified, M41.9 - Scoliosis, unspecified, M54.30 - Sciatica, unspecified side, M54.9 - Dorsalgia, unspecified, R26.81 - Unsteadiness on feet, R29.898 - Other symptoms and signs involving the musculoskeletal system miscellaneous medical supply Motorized?scooter,?As directed, 999 days 1 ea 0RF G89.29 - Other chronic pain, M40.209 - Unspecified kyphosis, site unspecified, M41.9 - Scoliosis, unspecified, M54.30 - Sciatica, unspecified side, M54.9 - Dorsalgia, unspecified, R26.81 - Unsteadiness on feet, R29.898 - Other symptoms and signs involving the musculoskeletal system, Z96.9 - Presence of functional implant, unspecified
[2024-12-20 14:37] VITALS: BP 126/70; PULSE 98; RESP 14; TEMP 36.6; O2SAT 93
--- OUTSIDE RECORDS SUMMARY | 2024-12-20 15:13 | XMS_ITS | Encounter Summary ---
Author Organization [facility] Address [address] [place] [address] Care Team Providers Care Production Control Clerk Name Role Phone Khadijah Neves MD Primary Care Provider Un available Yuniel Jurado MD Primary Care Provider Unav ailable Encounter Details Date Type Department Care Team Description 07/21/2017 Release of Information Medical Records [address] [place] [id number] Abstract, Provider Social History Tobacco Use Types Packs/Day Years Used Date Smoking Tobacco: Every Day Cigarettes 0.2 Alcohol Use Standard Drinks/Week Comments Yes 46.7 (1 standard dri nk = 0.6 oz pure alcohol) 3-4 cocktails of vodka and juice per night. Sex Assigned at Date Recorded Not on file documented as of this encounter Plan of Treatment Not on file documented as of this encounter Visit Diagnoses Not on filedocumented in this encounter Care Teams Production Control Clerk Relationship Specialty Start Date End Date Khadijah Neves MD PCP - General 04/24/07 02/27/20 Yuniel Jurado MD PCP - General Family Practice 09/23/22 documented as of this encounter
--- OUTSIDE RECORDS SUMMARY | 2024-12-20 15:13 | XMS_ITS | Encounter Summary ---
Author Organization [facility] Address [address] [place] [address] Care Team Providers Care Private Household Worker Name Role Phone Khadijah Neves MD Primary Care Provider Un available Yuniel Jurado MD Primary Care Provider Unav ailable Encounter Details Date Type Department Care Team Description 04/11/2017 [facility] Controlled Substance Contract Medical Records [address] [place] [address] Abstract, Provider Social History Tobacco Use Types [...] on filedocumented in this encounter Care Teams Private Household Worker Relationship Specialty Start Date End Date Khadijah Neves MD PCP - General 04/24/07 02/27/20 Yuniel Jurado MD PCP - General Family Practice 09/23/22 documented as of this encounter
--- OUTSIDE RECORDS SUMMARY | 2024-12-20 15:13 | XMS_ITS | Encounter Summary ---
Author Organization [facility] Address [address] [place] [address] Care Team Providers Care Bitumen Plant Operator Name Role Phone Khadijah Neves MD Primary Care Provider Un available Yuniel Jurado MD Primary Care Provider Unav ailable Encounter Details Date Type Department Care Team Description 04/07/2017 [facility] Medical Records [address] [place] [id number] Abstract, Provider Social History Tobacco Use Types [...] on filedocumented in this encounter Care Teams Bitumen Plant Operator Relationship Specialty Start Date End Date Khadijah Neves MD PCP - General 04/24/07 02/27/20 Yuniel Jurado MD PCP - General Family Practice 09/23/22 documented as of this encounter
--- OUTSIDE RECORDS SUMMARY | 2024-12-20 15:13 | XMS_ITS | Encounter Summary ---
Author Organization [facility] Address [address] [place] [address] Care Team Providers Care Dipper And Baker Name Role Phone Khadijah Neves MD Primary Care Provider Un available Yuniel Jurado MD Primary Care Provider Unav ailable Encounter Details Date Type Department Care Team Description 01/13/2015 Business Doc Medical Records [address] [place] [id number] Abstract, Provider Social History Tobacco Use Types [...] on filedocumented in this encounter Care Teams Dipper And Baker Relationship Specialty Start Date End Date Khadijah Neves MD PCP - General 04/24/07 02/27/20 Yuniel Jurado MD PCP - General Family Practice 09/23/22 documented as of this encounter
--- OUTSIDE RECORDS SUMMARY | 2024-12-20 15:13 | XMS_ITS | Encounter Summary ---
Author Organization [facility] Address [address] [place] [address] Care Team Providers Care Dial Buffer Name Role Phone Khadijah Neves MD Primary Care Provider Un available Yuniel Jurado MD Primary Care Provider Unav ailable Encounter Details Date Type Department Care Team Description 07/14/2018 Business Doc Medical Records [address] [place] [address] Abstract, Provider Social History Tobacco Use Types Packs/Day Years Used Date Smoking Tobacco: Every Day Cigarettes 0.2 Smokeless Tobacco: Never Alcohol Use Standard Drinks/Week Comments Yes 46.7 (1 standard dri nk = 0.6 oz pure alcohol) 3-4 cocktails of vodka and juice per night. Sex Assigned at Date Recorded Not on file documented as of this encounter Plan of Treatment Not on file documented as of this encounter Visit Diagnoses Not on filedocumented in this encounter Care Teams Dial Buffer Relationship Specialty Start Date End Date Khadijah Neves MD PCP - General 04/24/07 02/27/20 Yuniel Jurado MD PCP - General Family Practice 09/23/22 documented as of this encounter
--- OUTSIDE RECORDS SUMMARY | 2024-12-20 15:13 | XMS_ITS | Clinical Summary ---
Author Organization [facility] Address [address] [place] [address] Care Team Providers Care Gas Dispatcher Name Role Phone Yuniel Jurado MD Primary Care Provider Unav ailable Allergies Active Allergy Reactions Severity Noted Date Comments Alendronic Acid Hives/Urticaria 04/24/2015 Medications Medication Sig Dispensed Refills Start Date End Date Status TRAZODONE HCL OR Take by mouth. 0 Acti ve ibandronate (BONIVA) 150 MG tablet TAKE 1 TABLET BY MOUTH ONCE every 30 DAYS 3 Tab 0 08/23/2018 Active acyclovir (ZOVIRAX) 400 MG tablet Take 1 Tab by mouth 5 times daily. TAKE 1 TABLET BY MOUTH 5 TIMES A DAY 50 Tab 2 11/15/2018 Active vitamin D (ERGOCALCIFEROL) 64923 UNITS capsule TAKE 1 CAPSULE BY MOUTH ONCE A WEEK 4 Cap 5 11/16/2018 Active citalopram (CELEXA) 20 MG tablet Take 1 Tab by mouth daily. 30 Tab 5 01/30/2019 Active VENTOLIN HFA 108 (90 BASE) MCG/ACT Aero Soln Inhale 2 Puffs into the lungs every 4 hours as needed for Cough or Wheezing. 1 Inhaler 3 02/27/2019 Active lisinopril (PRINIVIL,ZESTRIL) 5 MG tablet Take 1 Tab by mouth daily. 30 Tab 5 04/11/2019 Active oxycodone (ROXICODONE) 5 MG immediate release tabletIndications:C hronic back pain greater than 3 months duration Take 1 Tab by mouth every 6 hours as needed for Pain (breakthrough pain). 112 Tab 0 04/19/2019 Active oxyCODONE HCl 10 MG TabIndications:Advertising Assistant andria back pain greater than 3 months duration Take 1 Tab by mouth 4 times daily as needed (back pain). 112 Tab 0 05/03/2019 Active tizanidine (ZANAFLEX) 4 MG tablet Take 1 Tab by mouth every 6 hours as needed for Muscle spasms. TAKE 1 TABLET BY MOUTH EVERY 6 HOURS NEEDED FOR MUSCLE SPASMS 60 Tab 2 05/28/2019 Active gabapentin (NEURONTIN) 300 MG capsule Take 1 Cap by mouth 3 times daily. Take additional 300 mg at bedtime. 120 Cap 2 06/04/2019 Active Active Problems Problem Noted Date Sternal fracture 03/15/2019 Overview: Questionable pathologic fracture-bone scan ordered COPD with emphysema 03/15/2019 Overview: CT 02/2019 Ascending aorta dilation 03/15/2019 Chronic back pain greater than 3 months duration 04/15/2015 Kyphoscoliosis deformity of spine 2014 Overactive bladder 12/25/2013 Osteoporosis 09/14/2011 Smoking 09/14/2011 Vertebral compression fracture 2 Pure hypercholesterolemia 05/30/2007 Carpal tunnel syndrome 05/30/2007 Immunizations Name Administration Dates Next Due Influenza vaccine high dose age 65 and over 06/16 Pneumococcal Conjugate PCV-13 2018 TD (STATE SUPPLIED FOR ADULTS AND CHILDREN) 08/2006 Family History Medical History Relation Name Comments unknown Other 2 Patient is adop sulma Relation Name Status Comments Aunt Alive diabetic - htn - cholesterol Daughter 1 Alive well Daughter 2 Alive well Mother's side lots of heart and cholesterol issues. Other 1 PT WAS ADOPTED THRU A PRIVATE ADOPTION AND HAS VERY LITTLE FAM. HX Sister Alive 1/2 sister high chol. Son Alive well Other 2 Social History Tobacco Use Types Packs/Day Years Used Date Smoking Tobacco: Every Day Cigarettes 0.2 Smokeless Tobacco: Never Tobacco Cessation:Ready to Q uit: No; Counseling Given: Yes Alcohol Use Standard Drinks/Week Comments Yes 46.7 (1 standard dri nk = 0.6 oz pure alcohol) 3-4 cocktails of vodka and juice per night. Sex Assigned at Date Recorded Not on file Last Filed Vital Signs Vital Sign Reading Time Taken Comments Blood Pressure 110/74 03/12/2019 11:37 AM EDT Pulse 84 03/12/2019 11:37 AM EDT Temperature 36.8 ??C (98.3 ??F) 02/22/2019 10:12 AM E DT Respiratory Rate 16 03/12/2019 11:37 AM EDT Oxygen Saturation 95% 2018 2:32 PM EST Inhaled Oxygen Concentration - - Weight 42.4 kg (93 lb 8 oz) 03/12/2019 11:37 AM EDT Height 160 cm (5' 3 ) 02/22/2019 10:12 AM EDT Body Mass Index 16.56 02/22/2019 10:12 AM EDT Plan of Treatment Health Maintenance Due Date Last Done Comments Covid-19 Vaccine (#1) 01/09/1951 SHINGLES VACCINE (1 of 2) 2002 DTAP/TDAP/TD (1 - Tdap) 08/16/2006 08/15/2006 MAMMOGRAM 12/03/2014 12/03/2013, 06/14/2007 BONE DENSITY SCREENING 2017 01/09/2015, 2011 CHOLESTEROL SCREENING 10/12/2018 10/12/2013 , 10/09/2012, 12/18/2009, Additional history exists COLON CANCER SCREENING 03/13/2019 03/13/2009 (Refuse d) DEPRESSION SCREEN 10/12/2019 10/12/2018, , 01/22/2016, Additional history exists FALL RISK ASSESSMENT 10/12/2019 10/12/2018, 07/28/20 17 TOBACCO CHECK/ADVISE 12/01/2019 11/30/2017 BMI CHECK/ADVISE 08/15/2024 03/12/2019, 06/2019, 10/12/2018, Additional history exists INFLUENZA (Season Ended) 2025 07/17/2019, 06/16 HEPATITIS C SCREENING Completed 10/12/2013 PNEUMOCOCCAL VACCINE Completed 07/17/2019, 07/12/20 18 Care Teams Gas Dispatcher Relationship Specialty Start Date End Date Yuniel Jurado MD PCP - General Family Practice 09/23/22
--- OUTSIDE RECORDS SUMMARY | 2024-12-20 15:14 | XMS_ITS | Encounter Summary ---
Author Organization [facility] Address [address] [place] [address] Care Team Providers Care Plastics Engineering Teacher Name Role Phone Khadijah Neves MD Primary Care Provider Un available Yuniel Jurado MD Primary Care Provider Unav ailable Encounter Details Date Type Department Care Team Description 10/18/2016 Transfer Records Medical Records [address] [place] [address] Abstract, Provider Social History Tobacco Use Types [...] on filedocumented in this encounter Care Teams Plastics Engineering Teacher Relationship Specialty Start Date End Date Khadijah Neves MD PCP - General 04/24/07 02/27/20 Yuniel Jurado MD PCP - General Family Practice 09/23/22 documented as of this encounter
--- OUTSIDE RECORDS SUMMARY | 2024-12-20 15:14 | XMS_ITS | Encounter Summary ---
Author Organization [facility] Address [address] [place] [address] Care Team Providers Care Clinical Partner Name Role Phone Khadijah Neves MD Primary Care Provider Un available Yuniel Jurado MD Primary Care Provider Unav ailable Encounter Details Date Type Department Care Team Description 07/15/2015 Controlled Substance Plan Medical Records [address] [place] [address] Abstract, Provider Social History Tobacco Use Types [...] on filedocumented in this encounter Care Teams Clinical Partner Relationship Specialty Start Date End Date Khadijah Neves MD PCP - General 04/24/07 02/27/20 Yuniel Jurado MD PCP - General Family Practice 09/23/22 documented as of this encounter
--- OUTSIDE RECORDS SUMMARY | 2024-12-20 15:14 | XMS_ITS | Encounter Summary ---
Author Organization [facility] Address [address] [place] [address] Care Team Providers Care Residential Treatment Staff Name Role Phone Khadijah Neves MD Primary Care Provider Un available Yuniel Jurado MD Primary Care Provider Unav ailable Encounter Details Date Type Department Care Team Description 06/14/2016 [facility] Medical Records [address] [place] [address] Abstract, Provider Social History Tobacco Use Types [...] on filedocumented in this encounter Care Teams Residential Treatment Staff Relationship Specialty Start Date End Date Khadijah Neves MD PCP - General 04/24/07 02/27/20 Yuniel Jurado MD PCP - General Family Practice 09/23/22 documented as of this encounter
--- OUTSIDE RECORDS SUMMARY | 2024-12-20 15:14 | XMS_ITS | Clinical Summary ---
Author Organization [employer] Address [address] [facility] [address] [place] [address] Care Team Providers Care Construction Skills Teacher Name Role Phone PcpManny Unassigned Primary Care Provider U navailable Allergies No known active allergies Medications citalopram (CeleXA) 10 MG tablet CeleXA Active gabapentin (Neurontin) 300 MG capsule 3 times daily. Acti ve lisinopril 2.5 MG tablet Lisinopril Active Tolterodine Tartrate (DETROL PO) Detrol Active acyclovir (Zovirax) 400 MG tablet TAKE 1 TABLET BY MOUTH 5 (FIVE) TIMES A DAY. 3 Active albuterol 108 (90 Base) MCG/ACT inhaler INHALE 2 PUFFS INTO LUNGS EVERY 4 HOURS NEEDED FOR WHEEZING 9 Active calcium carbonate (Os-Ranjit) 1250 (500 Ca) MG tablet Take 1,250 mg by mouth in the morning. 2 Active cetirizine (ZyrTEC) 10 MG tablet TAKE 1 TABLET ORALLY DAILY NEEDED FOR ALLERGY SYMPTOMS FOR 90 DAYS 3 Active cholecalciferol (Vitamin D-3) 50 MCG (2000 UT) capsule 2 Active Diclofenac Sodium 1 % gel APPLY 4G TOPICALLY TO KNEE/ANKLE/FOOT 4 TIMES A DAY 3 Active ergocalciferol (Vitamin D-2) 1.25 MG (67258 UT) capsule Take 1 capsule by mouth 1 (one) time per week. 9 Active Fluticasone Furoate-Vilante rol 200-25 MCG/ACT aerosol powder 1 Active fluticasone (Flonase) 50 MCG/ACT nasal spray USE 1 SPRAY INTRANASALLY EVERY 12 HOURS FOR 30 DAYS ADMINISTER INTO EACH NOSTRIL 3 Active lidocaine (Lidoderm) 5 % patch APPLY 1 PATCH TOPICALLY DAILY FOR 30 DAYS LEAVE ON MOST PAINFUL AREA FOR UP TO 12 HOURS 3 Active oxybutynin (Ditropan) 5 MG tablet Take 5 mg by mouth 3 times daily. 3 Active Oyster Shell Calcium 500 MG tablet TAKE 1 TABLET (1,250 MG TOTAL) BY MOUTH DAILY. 2 Active Spiriva Respimat 2.5 MCG/ACT inhaler INHALE 2 PUFFS BY MOUTH INTO THE LUNGS DAILY 3 Active tiZANidine (Zanaflex) 4 MG tablet TAKE 1 TABLET BY MOUTH 2 TIMES A DAY NEEDED FOR MUSCLE SPASM FOR 30 DAYS 3 Active citalopram (CeleXA) 20 MG tablet Take 1 tablet by mouth in the morning. 9 Active Active Problems Problem Noted Date Diagnosed Date Closed subtrochanteric fracture of femur 023 Cataract, nuclear sclerotic, both eyes 3 Presbyopia of both eyes 11/30/2022 Anxiety disorder due to medical condition 2019 Benign essential hypertension 07/17/2019 Overview (12/13/2022): cont lisinopril, will check labs Chronic, continuous use of opioids 07/17/2019 Overview (12/13/2022): UDS sent, Masspat not found, waiting for old records to be sent before prescribing Ascending aorta dilation 03/15/2019 Chronic back pain greater than 3 months duration 04/15/2015 Carpal tunnel syndrome 05/30/2007 Immunizations Name Administration Dates Next Due Influenza High-dose Quadrivalent Preservative Fr ee 05/21/2021,07/03/2020 Influenza, High Dose Seasonal, Preservative Free 07/17/2019,2018 Pneumococcal Conjugate PCV 13 2018 Pneumococcal Polysaccharide PPSV23 07/17/2019 Td (adult), unspecified 08/15/2006 Social History Tobacco Use Types Packs/Day Years Used Date Smoking Tobacco: Every Day Cigarettes Tobacco Cessation:Ready to Q uit: Not Asked; Counseling Given: Not Answered Comments:10 a day Comments Unknown Sex and Gender Information Value Date Recorded Sex Assigned at Female 06/14/2022 10:38 AM EDT Legal Sex Female 10:38 AM EDT Gender Identity Female 06/14/2022 10:38 AM EDT Sexual Orientation Straight 06/14/2022 10 :38 AM EDT Last Filed Vital Signs Vital Sign Reading Time Taken Comments Blood Pressure 150/91 05/08/2021 12:00 PM EDT Pulse - - Temperature 36.5 ??C (97.7 ??F) 12/13/2022 3:18 PM ED T Respiratory Rate - - Oxygen Saturation - - Inhaled Oxygen Concentration - - Weight - - Height - - Body Mass Index - - Plan of Treatment Upcoming Encounters Date Type Department Care Team (Late st Contact Info) Description 01/03/2025 2:30 PM EDT Office Visit [facility] [address] [place] [address] Lianna Crandall, OD [address] [place] [address] Health Maintenance Due Date Last Done Comments CT Colonography 1952 Colonoscopy 1952 Colorectal Cancer Screening 1952 Dental Prophylaxis 1952 Depression Screening 1952 FIT DNA/Cologuard 1952 FIT 1952 FOBT 1952 Lipid Panel 1952 SDOH Screening 1952 Sigmoidoscopy 1952 Alcohol/Substance Use Screening 1964 Tobacco Screening 1964 Hepatitis C Screening 1970 Mammogram 1992 Zoster Vaccines (1 of 2) 2002 DTaP/Tdap/Td Vaccines (1 - Tdap) 08/16/2006 08/15/2006, 08/15/2006 RSV Patients and Patients Aged 60 years or older (1 - Risk 60-74 years 1-dose series) 2012 Dental Oral Exam 07/08/2022 01/04/2022 Dental X-Ray: Bitewings 01/05/2023 01/04/2022 COVID-19 Vaccine ( season) 2024 05/27/2021, 11/22/2020, 11/01/2020 Influenza Vaccine (#1) 2024 , 07/03/2020, 07/17/2019, Additional history exists Dental X-Ray: Full Mouth 01/05/2025 01/04/2022 Pneumococcal Vaccine: 50+ Years Completed 07/17/2019, 2018 HIB Vaccines Aged Out No longer eligi ble based on patient's age to complete this topic HPV Vaccines Aged Out No longer eligi ble based on patient's age to complete this topic Hepatitis A Vaccines Aged Out No long er eligible based on patient's age to complete this topic Hepatitis B Vaccines Aged Out No long er eligible based on patient's age to complete this topic IPV Vaccines Aged Out No longer eligi ble based on patient's age to complete this topic Meningococcal Vaccine Aged Out No marina moses eligible based on patient's age to complete this topic RSV under 20 months Aged Out No longe r eligible based on patient's age to complete this topic Rotavirus Vaccines Aged Out No longer eligible based on patient's age to complete this topic Procedures Procedure Name Priority Date/Time Associated Diagnosis Comments INTRAORAL - COMPLETE SERIES OF RADIOGRAPHIC IMAGES Routine 01/04/2022 12:00 AM EDT COMPREHENSIVE ORAL EVALUATION - NEW OR ESTABLISHED PATIENT Routine 01/04/2022 12:00 AM EDT from Last 3 Months or Most Recently Relevant to Health Maintenance Insurance MEDICARE [facility] STANDARD [employer] PPO DENTAL-[facility] MEDICAID STAND ADULT Care Teams Construction Skills Teacher Relationship Specialty Start Date End Date Manny Schultz Unassigned PCP - General Family Medicine 12/13/22
--- OUTSIDE RECORDS SUMMARY | 2024-12-20 15:14 | XMS_ITS | Encounter Summary ---
Author Organization [facility] Address [address] [place] [address] Care Team Providers Care Associate Faculty Name Role Phone Khadijah Neves MD Primary Care Provider Un available Yuniel Jurado MD Primary Care Provider Unav ailable Encounter Details Date Type Department Care Team Description 09/21/2016 Hospital Medical Records [address] [place] [address] Renny Briones Social History Tobacco Use Types Packs/Day Years [...] on filedocumented in this encounter Care Teams Associate Faculty Relationship Specialty Start Date End Date Khadijah Neves MD PCP - General 04/24/07 02/27/20 Yuniel Jurado MD PCP - General Family Practice 09/23/22 documented as of this encounter
--- OUTSIDE RECORDS SUMMARY | 2024-12-20 15:14 | XMS_ITS | Encounter Summary ---
Author Organization [facility] Address [address] [place] [address] Care Team Providers Care Tree Faller Name Role Phone Khadijah Neves MD Primary Care Provider Un available Yuniel Jurado MD Primary Care Provider Unav ailable Encounter Details Date Type Department Care Team Description 08/31/2011 Recessing Machine Operator Report Medical Records [address] [place] [address] Reuben Talamantes Social History Tobacco Use Types Packs/Day Years Used Date Smoking Tobacco: Every Day Cigarettes 1 Alcohol Use Standard Drinks/Week Comments Yes 11.7 (1 standard drink = 0.6 oz pure alcohol) Sex Assigned at Date Recorded Not on file documented as of this encounter Plan of Treatment Not on file documented as of this encounter Visit Diagnoses Not on filedocumented in this encounter Care Teams Tree Faller Relationship Specialty Start Date End Date Khadijah Neves MD PCP - General 04/24/07 02/27/20 Yuniel Jurado MD PCP - General Family Practice 09/23/22 documented as of this encounter
--- OUTSIDE RECORDS SUMMARY | 2024-12-20 15:14 | XMS_ITS | Encounter Summary ---
Author Organization [facility] Address [address] [place] [address] Care Team Providers Care Plant Tour Guide Name Role Phone Khadijah Neves MD Primary Care Provider Un available Yuniel Jurado MD Primary Care Provider Unav ailable Encounter Details Date Type Department Care Team Description 03/15/2019 [facility]NO Controlled Substance Contract Medical Records [address] [place] [address] Abstract, Provider Social History Tobacco Use Types [...] on filedocumented in this encounter Care Teams Plant Tour Guide Relationship Specialty Start Date End Date Khadijah Neves MD PCP - General 04/24/07 02/27/20 Yuniel Jurado MD PCP - General Family Practice 09/23/22 documented as of this encounter
--- OUTSIDE RECORDS SUMMARY | 2024-12-20 15:14 | XMS_ITS | Encounter Summary ---
Author Organization [facility] Address [address] [place] [address] Care Team Providers Care Dairy Farm Operator Name Role Phone Khadijah Neves MD Primary Care Provider Un available Yuniel Jurado MD Primary Care Provider Unav ailable Encounter Details Date Type Department Care Team Description 10/24/2014 Release of Information Medical Records [address] [place] [address] Abstract, Provider Social History Tobacco Use Types [...] on filedocumented in this encounter Care Teams Dairy Farm Operator Relationship Specialty Start Date End Date Khadijah Neves MD PCP - General 04/24/07 02/27/20 Yuniel Jurado MD PCP - General Family Practice 09/23/22 documented as of this encounter
--- OUTSIDE RECORDS SUMMARY | 2024-12-20 15:14 | XMS_ITS | Encounter Summary ---
Author Organization [facility] Address [address] [place] [address] Care Team Providers Care Safety Net Maker Name Role Phone Khadijah Neves MD Primary Care Provider Un available Yuniel Jurado MD Primary Care Provider Unav ailable Encounter Details Date Type Department Care Team Description 01/31/2017 Custom Applicator Report Medical Records [address] [place] [address] Rodolfo Cha MD Social History Tobacco Use Types Packs/Day Years [...] on filedocumented in this encounter Care Teams Safety Net Maker Relationship Specialty Start Date End Date Khadijah Neves MD PCP - General 04/24/07 02/27/20 Yuniel Jurado MD PCP - General Family Practice 09/23/22 documented as of this encounter
--- OUTSIDE RECORDS SUMMARY | 2024-12-20 15:14 | XMS_ITS | Encounter Summary ---
Author Organization [facility] Address [address] [place] [address] Care Team Providers Care Director Of Distance Learning Name Role Phone Khadijah Neves MD Primary Care Provider Un available Yuniel Jurado MD Primary Care Provider Unav ailable Reason for Visit * Reason Onset Date Comments Nursing Surgical Services Director Feedback 08/27/2014 [facility] [phone] Encounter Details Date Type Department Care Team Description 08/27/2014 Telephone Medicine/Pediatrics - [address] [phone] Lex Ocampo PA-C Nursing Surgical Services Director Feedback ([facility] [phone]) Social History Tobacco Use Types Packs/Day Years Used Date Smoking Tobacco: Every Day Cigarettes 0.2 Alcohol Use Standard Drinks/Week Comments Yes 46.7 (1 standard dri nk = 0.6 oz pure alcohol) 3-4 cocktails of vodka and juice per night. Sex Assigned at Date Recorded Not on file documented as of this encounter Miscellaneous Notes * Telephone Encounter - Vivien Herzog - 08/27/2014 4:02 PM EST No insurance referral required per patient's insurance. [facility] appointment request form completed and faxed to [facility]. They will schedule appointment and contact the patient with appointment information. They will contact our office back with appointment information and fax number to fax notes and order. Diagnosis: back pain Fax to [phone]. Notes documented in this encounter Plan of Treatment Not on file documented as of this encounter Visit Diagnoses Not on filedocumented in this encounter Care Teams Director Of Distance Learning Relationship Specialty Start Date End Date Khadijah Neves MD PCP - General 04/24/07 02/27/20 Yuniel Jurado MD PCP - General Family Practice 09/23/22 documented as of this encounter
--- OUTSIDE RECORDS SUMMARY | 2024-12-20 15:14 | XMS_ITS | Encounter Summary ---
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
--- OUTSIDE RECORDS SUMMARY | 2024-12-20 15:14 | XMS_ITS | Encounter Summary ---
Author Organization [facility] Address [address] [place] [address] Care Team Providers Care Orthopedic Podiatrist Name Role Phone Khadijah Neves MD Primary Care Provider Un available Yuniel Jurado MD Primary Care Provider Unav ailable Encounter Details Date Type Department Care Team Description 09/15/2016 Health Sciences Manager Report Medical Records [address] [place] [address] Reuben Seymour Social History Tobacco Use Types Packs/Day Years [...] on filedocumented in this encounter Care Teams Orthopedic Podiatrist Relationship Specialty Start Date End Date Khadijah Neves MD PCP - General 04/24/07 02/27/20 Yuniel Jurado MD PCP - General Family Practice 09/23/22 documented as of this encounter
--- OUTSIDE RECORDS SUMMARY | 2024-12-20 15:14 | XMS_ITS | Encounter Summary ---
Author Organization [facility] Address [address] [place] [address] Care Team Providers Care Front End Architect Name Role Phone Khadijah Neves MD Primary Care Provider Un available Yuniel Jurado MD Primary Care Provider Unav ailable Encounter Details Date Type Department Care Team Description 10/03/2016 SNF discharge summary Medical Records [address] [place] [address] Social History Tobacco Use Types Packs/Day Years [...] on filedocumented in this encounter Care Teams Front End Architect Relationship Specialty Start Date End Date Khadijah Neves MD PCP - General 04/24/07 02/27/20 Yuniel Jurado MD PCP - General Family Practice 09/23/22 documented as of this encounter
--- OUTSIDE RECORDS SUMMARY | 2024-12-20 15:14 | XMS_ITS | Encounter Summary ---
Author Organization [facility] Address [address] [place] [address] Care Team Providers Care Pot Fireman Name Role Phone Khadijah Neves MD Primary Care Provider Un available Yuniel Jurado MD Primary Care Provider Unav ailable Encounter Details Date Type Department Care Team Description 01/27/2017 Orders Only Medicine/Pediatrics - [address] [phone] Khadijah Neves MD Smoker; Unexplained weight loss; Cough Social History Tobacco Use Types Packs/Day Years Used Date Smoking Tobacco: Every Day Cigarettes 0.2 Alcohol Use Standard Drinks/Week Comments Yes 46.7 (1 standard dri nk = 0.6 oz pure alcohol) 3-4 cocktails of vodka and juice per night. Sex Assigned at Date Recorded Not on file documented as of this encounter Plan of Treatment Not on file documented as of this encounter Procedures Procedure Name Priority Date/Time Associated Diagnosis Comments CHEST X-RAY, TWO VIEWS Routine 01/19/2017 Smoker Unexplained weight loss Cough documented in this encounter Results * CHEST X-RAY, TWO VIEWS (01/19/2017) Khadijah Neves MD RADIOLOGY documented in this encounter Visit Diagnoses Diagnosis Smoker Tobacco use disorder Unexplained weight loss Loss of weight Cough documented in this encounter Care Teams Pot Fireman Relationship Specialty Start Date End Date Khadijah Neves MD PCP - General 04/24/07 02/27/20 Yuniel Jurado MD PCP - General Family Practice 09/23/22 documented as of this encounter
--- OUTSIDE RECORDS SUMMARY | 2024-12-20 15:14 | XMS_ITS | Encounter Summary ---
Author Organization [facility] Address [address] [place] [address] Care Team Providers Care Credit Associate Name Role Phone Khadijah Neves MD Primary Care Provider Un available Yuniel Jurado MD Primary Care Provider Unav ailable Encounter Details Date Type Department Care Team Description 09/24/2016 Hospital Medical Records [address] [place] [address] Joana Lin Social History Tobacco Use Types Packs/Day Years [...] on filedocumented in this encounter Care Teams Credit Associate Relationship Specialty Start Date End Date Khadijah Neves MD PCP - General 04/24/07 02/27/20 Yuniel Jurado MD PCP - General Family Practice 09/23/22 documented as of this encounter
--- OUTSIDE RECORDS SUMMARY | 2024-12-20 15:14 | XMS_ITS | Encounter Summary ---
Author Organization [facility] Address [address] [place] [address] Care Team Providers Care Sr. Strategic Sourcing Manager Name Role Phone Khadijah Neves MD Primary Care Provider Un available Yuniel Jurado MD Primary Care Provider Unav ailable Encounter Details Date Type Department Care Team Description 10/18/2014 Meeting Planner Report Medical Records [address] [place] [address] Reuben Talamantes Social History Tobacco Use Types [...] on filedocumented in this encounter Care Teams Sr. Strategic Sourcing Manager Relationship Specialty Start Date End Date Khadijah Neves MD PCP - General 04/24/07 02/27/20 Yuniel Jurado MD PCP - General Family Practice 09/23/22 documented as of this encounter
--- OUTSIDE RECORDS SUMMARY | 2024-12-20 15:14 | XMS_ITS | Encounter Summary ---
Author Organization [facility] Address [address] [place] [address] Care Team Providers Care Steam Train Driver Name Role Phone Khadijah Neves MD Primary Care Provider Un available Yuniel Jurado MD Primary Care Provider Unav ailable Encounter Details Date Type Department Care Team Description 04/25/2019 Irrigator Overhead Report Medical Records [address] [place] [address] Riaz Pardo MD Social History Tobacco Use Types Packs/Day [...] on filedocumented in this encounter Care Teams Steam Train Driver Relationship Specialty Start Date End Date Khadijah Neves MD PCP - General 04/24/07 02/27/20 Yuniel Jurado MD PCP - General Family Practice 09/23/22 documented as of this encounter
--- OUTSIDE RECORDS SUMMARY | 2024-12-20 15:14 | XMS_ITS | Encounter Summary ---
Author Organization [facility] Address [address] [place] [address] Care Team Providers Care Touch Up Carver Name Role Phone Khadijah Neves MD Primary Care Provider Un available Yuniel Jurado MD Primary Care Provider Unav ailable Encounter Details Date Type Department Care Team Description 04/29/2016 Refill Medicine/Pediatrics - [address] [phone] Susan Sneed PA-C Social History Tobacco Use Types Packs/Day Years Used Date Smoking Tobacco: Every Day Cigarettes 0.2 Alcohol Use Standard Drinks/Week Comments Yes 46.7 (1 standard dri nk = 0.6 oz pure alcohol) 3-4 cocktails of vodka and juice per night. Sex Assigned at Date Recorded Not on file documented as of this encounter Miscellaneous Notes * Telephone Encounter - Charleen Hogan Rn - 04/30/2016 11:28 AM EDT Call to pharmacy, script was picked up on 04/29 at 6:33 by , * Telephone Encounter - Charleen Hogan Rn - 04/30/2016 11:23 AM EDTFrom: Iram [place] To: Susan Sneed PA-C Sent: 04/29/2016 7:03 PM EDT Subject: Medication Renewal Request Original authorizing provider: Susan Sneed PA-C Iram Birmingham would like a refill of the following medications: tizanidine (ZANAFLEX) 4 MG tablet [Susan Sneed PA-C] Preferred pharmacy: [id number] - [place] - [place], [place] - [address] [facility] Comment: This was approved but not sent to my pharmacy. I went to pick it up 04/29 at 6 pm and they do not have it. ? [facility]. This is twice this mo. I have had a problem with either approval very late in the day and now not called in. ??? documented in this encounter Plan of Treatment Not on file documented as of this encounter Visit Diagnoses Not on filedocumented in this encounter Care Teams Touch Up Carver Relationship Specialty Start Date End Date Khadijah Neves MD PCP - General 04/24/07 02/27/20 Yuniel Jurado MD PCP - General Family Practice 09/23/22 documented as of this encounter
--- OUTSIDE RECORDS SUMMARY | 2024-12-20 15:14 | XMS_ITS | Encounter Summary ---
Author Organization [facility] Address [address] [place] [address] Care Team Providers Care Airport Utility Worker Name Role Phone Khadijah Neves MD Primary Care Provider Un available Yuniel Jurado MD Primary Care Provider Unav ailable Reason for Visit * Reason Onset Date Comments Orders Call 12/09/2016 unresulted order s Encounter Details Date Type Department Care Team Description 12/09/2016 Telephone Medicine/Pediatrics - [address] [phone] Khadijah Neves MD Orders Call (unresulted orders) Social History Tobacco Use Types Packs/Day Years Used Date Smoking Tobacco: Every Day Cigarettes 0.2 Alcohol Use Standard Drinks/Week Comments Yes 46.7 (1 standard dri nk = 0.6 oz pure alcohol) 3-4 cocktails of vodka and juice per night. Sex Assigned at Date Recorded Not on file documented as of this encounter Miscellaneous Notes * Telephone Encounter - Maya Tompkins M.A. - 12/09/2016 2:24 PM EDT FYI only: I have been unable to contact this patient, after multiple attempts, to make an appointment for the x-ray of the chest you ordered on 07/2016. I have mailed out the Unresulted Orders letter to the patient on 09/2016. documented in this encounter Plan of Treatment Not on file documented as of this encounter Visit Diagnoses Not on filedocumented in this encounter Care Teams Airport Utility Worker Relationship Specialty Start Date End Date Khadijah Neves MD PCP - General 04/24/07 02/27/20 Yuniel Jurado MD PCP - General Family Practice 09/23/22 documented as of this encounter
--- OUTSIDE RECORDS SUMMARY | 2024-12-20 15:14 | XMS_ITS | Encounter Summary ---
Author Organization [facility] Address [address] [place] [address] Care Team Providers Care Human Resources Executive Name Role Phone Khadijah Neves MD Primary Care Provider Un available Yuniel Jurado MD Primary Care Provider Unav ailable Encounter Details Date Type Department Care Team Description 11/11/2016 Follow Up Manager Report Medical Records [address] [place] [address] Rodolfo Cha MD Social History Tobacco Use [...] on filedocumented in this encounter Care Teams Human Resources Executive Relationship Specialty Start Date End Date Khadijah Neves MD PCP - General 04/24/07 02/27/20 Yuniel Jurado MD PCP - General Family Practice 09/23/22 documented as of this encounter
--- OUTSIDE RECORDS SUMMARY | 2024-12-20 15:14 | XMS_ITS | Encounter Summary ---
Author Organization [facility] Address [address] [place] [address] Care Team Providers Care Front Office Agent Name Role Phone Khadijah Neves MD Primary Care Provider Un available Yuniel Jurado MD Primary Care Provider Unav ailable Reason for Visit * Reason Onset Date Comments hospital follow up 10/04/2016 Encounter Details Date Type Department Care Team Description 10/04/2016 Telephone Medicine/Pediatrics - [address] [phone] Khadijah Neves MD hospital follow up Social History Tobacco Use Types Packs/Day Years Used Date Smoking Tobacco: Every Day Cigarettes 0.2 Alcohol Use Standard Drinks/Week Comments Yes 46.7 (1 standard dri nk = 0.6 oz pure alcohol) 3-4 cocktails of vodka and juice per night. Sex Assigned at Date Recorded Not on file documented as of this encounter Miscellaneous Notes * Telephone Encounter - Jaimee Gutierrez RN - 10/05/2016 9:15 AM EST FYI, see below. Explained to patient and daughter that patient should follow up ortho for pain management related to hip fracture. Patient was given pain meds at time of discharge. Daughter reports understanding. [place] to provider * Telephone Encounter - Mariam Hinton R.N. - 10/04/2016 1:56 PM EST Patient needs physical therapy and she wants the Oxycodone refilled because she does not want pain when doing her therapy. Patient states she is on a pain management program with . Patient was operated on by for a fractured hip. Patient states she has a hospital follow 10/06 or 10/07 will see for an ortho follow up. Patient advised the refill for the Oxycodone has been requested and to call [place] tomorrow about it and to call tomorrow to make a hospital follow up appointment since this triage nurse does not see an appointment with until 10/18. * Telephone Encounter - Dayanna Beckwith - 10/04/2016 12:05 PM EST Patients daughter calling Mariam back . * Telephone Encounter - Mariam Hinton R.N. - 10/04/2016 11:56 AM EST Called patient. Got voicemail. Left message for patient to return call. * Telephone Encounter - Lisandra Chand - 10/04/2016 9:42 AM EST Hospital follow up appointment needed Hospital patient was treated at: [facility] Was this only an ER visit or was the patient admitted to the hospital? Admitted to hospital Date of visit if ER visit only: N/A If patient was admitted what was the date of discharge? 10/02/16 from [facility] - Hipfx surgery Reason/diagnosis for visit or stay: hip fracture When was the patient told to follow up? 1 wk Was visit or stay related to an injury? YES If yes, what was the date of injury (DOI)? N/A If yes, was the injury due to N/A documented in this encounter Plan of Treatment Not on file documented as of this encounter Visit Diagnoses Diagnosis Chronic back pain greater than 3 months duration- Primary Backache, unspecified documented in this encounter Care Teams Front Office Agent Relationship Specialty Start Date End Date Khadijah Neves MD PCP - General 04/24/07 02/27/20 Yuniel Jurado MD PCP - General Family Practice 09/23/22 documented as of this encounter
--- OUTSIDE RECORDS SUMMARY | 2024-12-20 15:14 | XMS_ITS | Encounter Summary ---
Author Organization [facility] Address [address] [place] [address] Care Team Providers Care Taxi Servicer Name Role Phone Khadijah Neves MD Primary Care Provider Un available Yuniel Jurado MD Primary Care Provider Unav ailable Encounter Details Date Type Department Care Team Description 06/04/2014 Controlled Substance Contract with Plan Medical Records [address] [place] [address] Abstract, Provider Social History Tobacco Use Types [...] on filedocumented in this encounter Care Teams Taxi Servicer Relationship Specialty Start Date End Date Khadijah Neves MD PCP - General 04/24/07 02/27/20 Yuniel Jurado MD PCP - General Family Practice 09/23/22 documented as of this encounter
--- OUTSIDE RECORDS SUMMARY | 2024-12-20 15:14 | XMS_ITS | Encounter Summary ---
Author Organization [facility] Address [address] [place] [address] Care Team Providers Care Traveling Representative Name Role Phone Khadijah Neves MD Primary Care Provider Un available Yuniel Jurado MD Primary Care Provider Unav ailable Encounter Details Date Type Department Care Team Description 06/14/2016 [facility] Medical Records [address] [place] [address] Abstract, Provider Social History Tobacco Use Types [...] on filedocumented in this encounter Care Teams Traveling Representative Relationship Specialty Start Date End Date Khadijah Neves MD PCP - General 04/24/07 02/27/20 Yuniel Jurado MD PCP - General Family Practice 09/23/22 documented as of this encounter
--- OUTSIDE RECORDS SUMMARY | 2024-12-20 15:14 | XMS_ITS | Encounter Summary ---
Author Organization [facility] Address [address] [place] [address] Care Team Providers Care Plant Engineering Supervisor Name Role Phone Khadijah Neves MD Primary Care Provider Un available Yuniel Jurado MD Primary Care Provider Unav ailable Encounter Details Date Type Department Care Team Description 01/26/2016 Controlled Substance Plan Medical Records [address] [place] [address] Abstract, Provider Social History Tobacco Use Types [...] filedocumented in this encounter Care Teams Plant Engineering Supervisor Relationship Specialty Start Date End Date Khadijah Neves MD PCP - General 04/24/07 02/27/20 Yuniel Jurado MD PCP - General Family Practice 09/23/22 documented as of this encounter
== END 2024-12-20 15:50 | disposition home or self-care (01) ==
LOC: HO.HMCFM 14:24
PROVIDERS: PCP Family Medicine; Visit Provider Family Medicine
DX: I10 Essential (primary) hypertension (principal); M25.551 Pain in right hip; Z91.81 History of falling; R32 Unspecified urinary incontinence; M79.601 Pain in right arm; R29.898 Other symptoms and signs involving the musculoskeletal system; R26.81 Unsteadiness on feet; M54.9 Dorsalgia, unspecified; G89.29 Other chronic pain

== ENCOUNTER 2024-12-20 14:23 | Outpatient (REF) | payer OTHER, MEDICAID, SELFPAY ==
--- OUTSIDE RECORDS SUMMARY | 2024-12-20 15:48 | XMS_ITS | Encounter Summary ---
Author Organization [facility] Address [address] [place] [address] Care Team Providers Care Mitten Stitcher Name Role Phone Khadijah Neves MD Primary Care Provider Un available Yuniel Jurado MD Primary Care Provider Unav ailable Encounter Details Date Type Department Care Team Description 09/22/2016 [facility] Medical Records [address] [place] [address] Rodolfo Cha MD Social History Tobacco Use [...] on filedocumented in this encounter Care Teams Mitten Stitcher Relationship Specialty Start Date End Date Khadijah Neves MD PCP - General 04/24/07 02/27/20 Yuniel Jurado MD PCP - General Family Practice 09/23/22 documented as of this encounter
--- OUTSIDE RECORDS SUMMARY | 2024-12-20 15:48 | XMS_ITS | Encounter Summary ---
Author Organization [facility] Address [address] [place] [address] Care Team Providers Care Sealer Dry Cell Name Role Phone Khadijah Neves MD Primary Care Provider Un available Yuniel Jurado MD Primary Care Provider Unav ailable Encounter Details Date Type Department Care Team Description 11/11/2016 Fiber Technician Report Medical Records [address] [place] [address] Rodolfo Cha MD Social History Tobacco Use [...] on filedocumented in this encounter Care Teams Sealer Dry Cell Relationship Specialty Start Date End Date Khadijah Neves MD PCP - General 04/24/07 02/27/20 Yuniel Jurado MD PCP - General Family Practice 09/23/22 documented as of this encounter
--- OUTSIDE RECORDS SUMMARY | 2024-12-20 15:48 | XMS_ITS | Encounter Summary ---
Author Organization [facility] Address [address] [place] [address] Care Team Providers Care Safety Analyst Name Role Phone Khadijah Neves MD Primary Care Provider Un available Yuniel Jurado MD Primary Care Provider Unav ailable Encounter Details Date Type Department Care Team Description 01/15/2019 [facility] Medical Records [address] [place] [address] Abstract, Provider Social History Tobacco Use Types [...] filedocumented in this encounter Care Teams Safety Analyst Relationship Specialty Start Date End Date Khadijah Neves MD PCP - General 04/24/07 02/27/20 Yuniel Jurado MD PCP - General Family Practice 09/23/22 documented as of this encounter
--- OUTSIDE RECORDS SUMMARY | 2024-12-20 15:48 | XMS_ITS | Encounter Summary ---
Author Organization [facility] Address [address] [place] [address] Care Team Providers Care Manager Hair Name Role Phone Khadijah Neves MD Primary Care Provider Un available Yuniel Jurado MD Primary Care Provider Unav ailable Encounter Details Date Type Department Care Team Description 07/11/2018 [facility] Medical Records [address] [place] [address] Abstract, Provider Social History Tobacco Use Types [...] on filedocumented in this encounter Care Teams Manager Hair Relationship Specialty Start Date End Date Khadijah Neves MD PCP - General 04/24/07 02/27/20 Yuniel Jurado MD PCP - General Family Practice 09/23/22 documented as of this encounter
--- OUTSIDE RECORDS SUMMARY | 2024-12-20 15:48 | XMS_ITS | Encounter Summary ---
Author Organization [facility] Address [address] [place] [address] Care Team Providers Care Financial Services Director Name Role Phone Khadijah Neves MD Primary Care Provider Un available Yuniel Jurado MD Primary Care Provider Unav ailable Encounter Details Date Type Department Care Team Description 11/24/2017 [facility] Medical Records [address] [place] [address] Abstract, Provider Social History Tobacco Use Types [...] on filedocumented in this encounter Care Teams Financial Services Director Relationship Specialty Start Date End Date Khadijah Neves MD PCP - General 04/24/07 02/27/20 Yuniel Jurado MD PCP - General Family Practice 09/23/22 documented as of this encounter
--- OUTSIDE RECORDS SUMMARY | 2024-12-20 15:48 | XMS_ITS | Encounter Summary ---
Author Organization [facility] Address [address] [place] [address] Care Team Providers Care Bulking Machine Operator Name Role Phone Khadijah Neves MD Primary Care Provider Un available Yuniel Jurado MD Primary Care Provider Unav ailable Encounter Details Date Type Department Care Team Description 10/03/2016 SNF discharge summary Medical Records [address] [place] [address] Social History Tobacco Use Types Packs/Day Years [...] on filedocumented in this encounter Care Teams Bulking Machine Operator Relationship Specialty Start Date End Date Khadijah Neves MD PCP - General 04/24/07 02/27/20 Yuniel Jurado MD PCP - General Family Practice 09/23/22 documented as of this encounter
--- OUTSIDE RECORDS SUMMARY | 2024-12-20 15:48 | XMS_ITS | Clinical Summary ---
Author Organization [facility] Address [address] [place] [address] Care Team Providers Care Manager Inspection Name Role Phone Yuniel Jurado MD Primary [...] Tab 2 11/15/2018 Active vitamin D (ERGOCALCIFEROL) 69690 UNITS capsule TAKE 1 CAPSULE BY MOUTH [...] 0 04/19/2019 Active oxyCODONE HCl 10 MG TabIndications:Bottle Washer andria back pain greater than 3 months [...] VACCINE Completed 07/17/2019, 07/12/20 18 Care Teams Manager Inspection Relationship Specialty Start Date End Date Yuniel Jurado MD PCP - General Family Practice 09/23/22
--- OUTSIDE RECORDS SUMMARY | 2024-12-20 15:48 | XMS_ITS | Encounter Summary ---
Author Organization [facility] Address [address] [place] [address] Care Team Providers Care Quality Control Lab Technician Name Role Phone Khadijah Neves MD Primary Care Provider Un available Yuniel Jurado MD Primary Care Provider Unav ailable Encounter Details Date Type Department Care Team Description 04/29/2016 Refill Medicine/Pediatrics - [address] [phone] Susan Sneed PA-C Social History Tobacco Use [...] 6:33 by , * Telephone Encounter - Chalreen Hogan Rn - 04/30/2016 11:23 AM EDTFrom: Iram [place] To: Susan Sneed PA-C Sent: 04/29/2016 7:03 PM EDT Subject: Medication Renewal Request Original authorizing provider: Susan Sneed PA-C Iram Birmingham would like a refill of the following medications: tizanidine (ZANAFLEX) 4 MG tablet [Susan Sneed PA-C] Preferred pharmacy: [facility] - [place], [place] - [address] Comment: This was approved but not sent to my pharmacy. I went to pick it up 04/29 at 6 pm and they do not have it. ? [facility]. This is twice this mo. I have had a problem with either approval very late in the day and now not called in. ??? documented in this encounter Plan of Treatment Not on file documented as of this encounter Visit Diagnoses Not on filedocumented in this encounter Care Teams Quality Control Lab Technician Relationship Specialty Start Date End Date Khadijah Neves MD PCP - General 04/24/07 02/27/20 Yuniel Jurado MD PCP - General Family Practice 09/23/22 documented as of this encounter
--- OUTSIDE RECORDS SUMMARY | 2024-12-20 15:48 | XMS_ITS | Encounter Summary ---
Author Organization [facility] Address [address] [place] [address] Care Team Providers Care Filenet Admin Name Role Phone Khadijah Neves MD Primary Care Provider Un available Yuniel Jurado MD Primary Care Provider Unav ailable Encounter Details Date Type Department Care Team Description 01/26/2016 Controlled Substance Plan Medical Records [address] [place] [address] Abstract, Provider Social History Tobacco Use Types [...] on filedocumented in this encounter Care Teams Filenet Admin Relationship Specialty Start Date End Date Khadijah Neves MD PCP - General 04/24/07 02/27/20 Yuniel Jurado MD PCP - General Family Practice 09/23/22 documented as of this encounter
--- OUTSIDE RECORDS SUMMARY | 2024-12-20 15:48 | XMS_ITS | Encounter Summary ---
Author Organization [facility] Address [address] [place] [address] Care Team Providers Care Web Analytics Developer Name Role Phone Khadijah Neves MD Primary Care Provider Un available Yuniel Jurado MD Primary Care Provider Unav ailable Encounter Details Date Type Department Care Team Description 04/07/2017 [facility] Medical Records [address] [place] [address] Abstract, Provider Social History Tobacco Use Types [...] on filedocumented in this encounter Care Teams Web Analytics Developer Relationship Specialty Start Date End Date Khadijah Neves MD PCP - General 04/24/07 02/27/20 Yuniel Jurado MD PCP - General Family Practice 09/23/22 documented as of this encounter
--- OUTSIDE RECORDS SUMMARY | 2024-12-20 15:48 | XMS_ITS | Encounter Summary ---
Author Organization [facility] Address [address] [place] [address] Care Team Providers Care Scrap Hoist Operator Name Role Phone Khadijah Neves MD Primary Care Provider Un available Yuniel Jurado MD Primary Care Provider Unav ailable Encounter Details Date Type Department Care Team Description 06/14/2016 [facility] Medical Records [address] [place] [address] Abstract, Provider Social History Tobacco Use Types [...] on filedocumented in this encounter Care Teams Scrap Hoist Operator Relationship Specialty Start Date End Date Khadijah Neves MD PCP - General 04/24/07 02/27/20 Yuniel Jurado MD PCP - General Family Practice 09/23/22 documented as of this encounter
--- OUTSIDE RECORDS SUMMARY | 2024-12-20 15:48 | XMS_ITS | Encounter Summary ---
Author Organization [facility] Address [address] [place] [address] Care Team Providers Care Stamper Blocker Name Role Phone Khadijah Neves MD Primary Care Provider Un available Yuniel Jurado MD Primary Care Provider Unav ailable Encounter Details Date Type Department Care Team Description 09/21/2016 Hospital Medical Records [address] [place] [address] Renny Briones Social History Tobacco Use Types [...] on filedocumented in this encounter Care Teams Stamper Blocker Relationship Specialty Start Date End Date Khadijah Neves MD PCP - General 04/24/07 02/27/20 Yuniel Jurado MD PCP - General Family Practice 09/23/22 documented as of this encounter
--- OUTSIDE RECORDS SUMMARY | 2024-12-20 15:48 | XMS_ITS | Encounter Summary ---
Author Organization [facility] Address [address] [place] [address] Care Team Providers Care Hose Sprayer Name Role Phone Khadijah Neves MD Primary Care Provider Un available Yuniel Jurado MD Primary Care Provider Unav ailable Encounter Details Date Type Department Care Team Description 06/14/2016 [facility] Medical Records [address] [place] [address] Abstract, Provider Social History Tobacco Use Types [...] on filedocumented in this encounter Care Teams Hose Sprayer Relationship Specialty Start Date End Date Khadijah Neves MD PCP - General 04/24/07 02/27/20 Yuniel Jurado MD PCP - General Family Practice 09/23/22 documented as of this encounter
--- OUTSIDE RECORDS SUMMARY | 2024-12-20 15:48 | XMS_ITS | Encounter Summary ---
Author Organization [facility] Address [address] [place] [address] Care Team Providers Care Road Test Examiner Name Role Phone Khadijah Neves MD Primary Care Provider Un available Yuniel Jurado MD Primary Care Provider Unav ailable Encounter Details Date Type Department Care Team Description 09/03/2015 Refill Medicine/Pediatrics - [address] [phone] Khadijah Neves MD Social History Tobacco Use Types Packs/Day Years Used Date Smoking Tobacco: Every Day Cigarettes 0.2 Alcohol Use Standard Drinks/Week Comments Yes 46.7 (1 standard dri nk = 0.6 oz pure alcohol) 3-4 cocktails of vodka and juice per night. Sex Assigned at Date Recorded Not on file documented as of this encounter Miscellaneous Notes * Telephone Encounter - Poli Ayon M.A. - 09/03/2015 1:36 PM EST Rx put in ppu * Telephone Encounter - Jaimee Dunbar M.A. - 09/03/2015 12:38 PM EST Last ov 07/03/15. CSC reviewed. Last RX 08/04/15. Pt due for refill. Annual letter pended. Component Value Date URINEOXYCOD POSITIVE 07/03/2015 URBENZO NEGATIVE 07/03/2015 URAMPHETAMIN NEGATIVE 07/03/2015 URMARIJUANA NEGATIVE 07/03/2015 UROPIATES NEGATIVE 07/03/2015 URBARBITUATE NEGATIVE 07/03/2015 URCOCAINE NEGATIVE 07/03/2015 HYDROCODONE Negative 07/03/2015 * Telephone Encounter - Jaimee Dunbar M.A. - 09/03/2015 12:24 PM ESTFrom: Iram Birmingham To: Khadijah Neves MD Sent: 09/03/2015 12:20 PM EST Subject: Medication Renewal Request Original authorizing provider: MD Iram Briggs would like a refill of the following medications: OxyCODONE HCl 10 MG Tab [Khadijah Neves MD] Preferred pharmacy: [facility] - [place], [place] - [address] Comment: documented in this encounter Plan of Treatment Not on file documented as of this encounter Visit Diagnoses Not on filedocumented in this encounter Care Teams Road Test Examiner Relationship Specialty Start Date End Date Khadijah Neves MD PCP - General 04/24/07 02/27/20 Yuniel Jurado MD PCP - General Family Practice 09/23/22 documented as of this encounter
--- OUTSIDE RECORDS SUMMARY | 2024-12-20 15:48 | XMS_ITS | Encounter Summary ---
Author Organization [facility] Address [address] [place] [address] Care Team Providers Care Chief Librarian Branch Or Department Name Role Phone Khadijah Neves MD Primary Care Provider Un available Yuniel Jurado MD Primary Care Provider Unav ailable Encounter Details Date Type Department Care Team Description 04/25/2019 Permit Coordinator Report Medical Records [address] [place] [address] Riaz Pardo MD Social History Tobacco Use [...] on filedocumented in this encounter Care Teams Chief Librarian Branch Or Department Relationship Specialty Start Date End Date Khadijah Neves MD PCP - General 04/24/07 02/27/20 Yuniel Jurado MD PCP - General Family Practice 09/23/22 documented as of this encounter
--- OUTSIDE RECORDS SUMMARY | 2024-12-20 15:48 | XMS_ITS | Encounter Summary ---
Author Organization [facility] Address [address] [place] [address] Care Team Providers Care Hiv Cts Specialist Name Role Phone Khadijah Neves MD Primary Care Provider Un available Yuniel Jurado MD Primary Care Provider Unav ailable Encounter Details Date Type Department Care Team Description 01/31/2017 Veterinary Milk Specialist Report Medical Records [address] [place] [address] Rodolfo Cha MD Social History Tobacco Use [...] on filedocumented in this encounter Care Teams Hiv Cts Specialist Relationship Specialty Start Date End Date Khadijah Neves MD PCP - General 04/24/07 02/27/20 Yuniel Jurado MD PCP - General Family Practice 09/23/22 documented as of this encounter
--- OUTSIDE RECORDS SUMMARY | 2024-12-20 15:48 | XMS_ITS | Encounter Summary ---
Author Organization [facility] Address [address] [place] [address] Care Team Providers Care Supplier Relationship Director Name Role Phone Khadijah Neves MD Primary Care Provider Un available Yuniel Jurado MD Primary Care Provider Unav ailable Encounter Details Date Type Department Care Team Description 03/31/2019 Telephone Medicine/Pediatrics - [address] [phone] Margaret Simental MD Social History Tobacco Use Types Packs/Day [...] on filedocumented in this encounter Care Teams Supplier Relationship Director Relationship Specialty Start Date End Date Khadijah Neves MD PCP - General 04/24/07 02/27/20 Yuniel Jurado MD PCP - General Family Practice 09/23/22 documented as of this encounter
--- OUTSIDE RECORDS SUMMARY | 2024-12-20 15:48 | XMS_ITS | Encounter Summary ---
Author Organization [facility] Address [address] [place] [address] Care Team Providers Care Braider Tender Name Role Phone Khadijah Neves MD Primary Care Provider Un available Yuniel Jurado MD Primary Care Provider Unav ailable Encounter Details Date Type Department Care Team Description 03/30/2019 Orders Only Medical Records [address] [place] [address] Abstract, Provider Pathological fracture of other site with routine healing, unspecified pathological cause, subsequent encounter Social History Tobacco Use Types Packs/Day Years [...] Procedure Name Priority Date/Time Associated Diagnosis Comments NUCLEAR SCAN OF SKELETON (BONE SCAN) Routine 03/28/2019 Pathological fracture of other site with routine healing, unspecified pathological cause, subsequent encounter documented in this encounter Results * NUCLEAR SCAN OF SKELETON (BONE SCAN) (03/28/2019) Margaret Simental MD NUCLEAR documented in this encounter Visit Diagnoses Diagnosis Pathological fracture of other site with routine healing, unspecified pathological cause, subsequent encounter documented in this encounter Care Teams Braider Tender Relationship Specialty Start Date End Date Khadijah Neves MD PCP - General 04/24/07 02/27/20 Yuniel Jurado MD PCP - General Family Practice 09/23/22 documented as of this encounter
--- OUTSIDE RECORDS SUMMARY | 2024-12-20 15:48 | XMS_ITS | Encounter Summary ---
Author Organization [facility] Address [address] [place] [address] Care Team Providers Care Procedure Manager Name Role Phone Khadijah Neves MD Primary Care Provider Un available Yuniel Jurado MD Primary Care Provider Unav ailable Encounter Details Date Type Department Care Team Description 01/13/2015 Business Doc Medical Records [address] [place] [address] Abstract, Provider Social History Tobacco Use Types [...] on filedocumented in this encounter Care Teams Procedure Manager Relationship Specialty Start Date End Date Khadijah Neves MD PCP - General 04/24/07 02/27/20 Yuniel Jurado MD PCP - General Family Practice 09/23/22 documented as of this encounter
--- OUTSIDE RECORDS SUMMARY | 2024-12-20 15:48 | XMS_ITS | Encounter Summary ---
Author Organization [facility] Address [address] [place] [address] Care Team Providers Care Chinese Language Professor Name Role Phone Khadijah Neves MD Primary Care Provider Un available Yuniel Jurado MD Primary Care Provider Unav ailable Encounter Details Date Type Department Care Team Description 06/04/2014 Controlled Substance Contract with Plan Medical Records [address] [place] [address] Abstract, Provider Social History Tobacco Use Types [...] on filedocumented in this encounter Care Teams Chinese Language Professor Relationship Specialty Start Date End Date Khadijah Neves MD PCP - General 04/24/07 02/27/20 Yuniel Jurado MD PCP - General Family Practice 09/23/22 documented as of this encounter
--- OUTSIDE RECORDS SUMMARY | 2024-12-20 15:48 | XMS_ITS | Encounter Summary ---
Author Organization [facility] Address [address] [place] [address] Care Team Providers Care Supervisor Winter Name Role Phone Khadijah Neves MD Primary Care Provider Un available Yuniel Jurado MD Primary Care Provider Unav ailable Encounter Details Date Type Department Care Team Description 10/01/2016 [facility] Medical Records [address] [place] [id number] Abstract, Provider Social History Tobacco Use Types [...] on filedocumented in this encounter Care Teams Supervisor Winter Relationship Specialty Start Date End Date Khadijah Neves MD PCP - General 04/24/07 02/27/20 Yuniel Jurado MD PCP - General Family Practice 09/23/22 documented as of this encounter
--- OUTSIDE RECORDS SUMMARY | 2024-12-20 15:48 | XMS_ITS | Encounter Summary ---
Author Organization [facility] Address [address] [place] [address] Care Team Providers Care Bookkeeping Clerks Supervisor Name Role Phone Khadijah Neves MD Primary Care Provider Un available Yuniel Jurado MD Primary Care Provider Unav ailable Encounter Details Date Type Department Care Team Description 07/27/2018 Surgery Attendant Report Medical Records [address] [place] [address] Abstract, Provider Social History Tobacco Use Types [...] on filedocumented in this encounter Care Teams Bookkeeping Clerks Supervisor Relationship Specialty Start Date End Date Khadijah Neves MD PCP - General 04/24/07 02/27/20 Yuniel Jurado MD PCP - General Family Practice 09/23/22 documented as of this encounter
--- OUTSIDE RECORDS SUMMARY | 2024-12-20 15:48 | XMS_ITS | Encounter Summary ---
Author Organization [facility] Address [address] [place] [address] Care Team Providers Care Bleach Boiler Packer Name Role Phone Khadijah Neves MD Primary Care Provider Un available Yuniel Jurado MD Primary Care Provider Unav ailable Encounter Details Date Type Department Care Team Description 09/24/2016 [facility] Medical Records [address] [place] [address] Joana Lin Social History Tobacco Use Types [...] on filedocumented in this encounter Care Teams Bleach Boiler Packer Relationship Specialty Start Date End Date Khadijah Neves MD PCP - General 04/24/07 02/27/20 Yuniel Jurado MD PCP - General Family Practice 09/23/22 documented as of this encounter
--- OUTSIDE RECORDS SUMMARY | 2024-12-20 15:48 | XMS_ITS | Encounter Summary ---
Author Organization [facility] Address [address] [place] [address] Care Team Providers Care Public Speaker Name Role Phone Khadijah Neves MD Primary Care Provider Un available Yuniel Jurado MD Primary Care Provider Unav ailable Encounter Details Date Type Department Care Team Description 10/18/2016 [facility] Records Medical Records [address] [place] [address] Abstract, Provider Social History Tobacco Use Types [...] on filedocumented in this encounter Care Teams Public Speaker Relationship Specialty Start Date End Date Khadijah Neves MD PCP - General 04/24/07 02/27/20 Yuniel Jurado MD PCP - General Family Practice 09/23/22 documented as of this encounter
--- OUTSIDE RECORDS SUMMARY | 2024-12-20 15:48 | XMS_ITS | Encounter Summary ---
Author Organization [facility] Address [address] [place] [address] Care Team Providers Care Food Preparer Name Role Phone Khadijah Neves MD Primary Care Provider Un available Yuniel Jurado MD Primary Care Provider Unav ailable Encounter Details Date Type Department Care Team Description 05/04/2018 Pt. Non Urgent Medic al Question Medicine/Pediatrics - [address] [phone] Khadijah Neves MD Social History Tobacco Use Types Packs/Day Years Used Date Smoking Tobacco: Every Day Cigarettes 0.2 Smokeless Tobacco: Never Alcohol Use Standard Drinks/Week Comments Yes 46.7 (1 standard dri nk = 0.6 oz pure alcohol) 3-4 cocktails of vodka and juice per night. Sex Assigned at Date Recorded Not on file documented as of this encounter Progress Notes * Cathi Warren M.A. - 05/04/2018 1:18 PM EDTFrom: Iram Negrodennis To: Khadijah Neves MD Sent: 05/04/2018 1:17 PM EDT Subject: medication refill I wasn't notified of my request received. I do sometimes and then not at all. Inconsistent as well as timing receiving it with my needing for pain. I have gotten my meds at 9 am and sometimes not until 4 PM . Is there any way to rectify this situation that happens every mo? It's not exactly a antibiotic. Can I have a standing order for my refill dates and just pick pack worker at office. I have to get a ride there. Thanks Iram [place] documented in this encounter Plan of Treatment Not on file documented as of this encounter Visit Diagnoses Not on filedocumented in this encounter Care Teams Food Preparer Relationship Specialty Start Date End Date Khadijah Neves MD PCP - General 04/24/07 02/27/20 Yuniel Jurado MD PCP - General Family Practice 09/23/22 documented as of this encounter
--- OUTSIDE RECORDS SUMMARY | 2024-12-20 15:48 | XMS_ITS | Encounter Summary ---
Author Organization [facility] Address [address] [place] [address] Care Team Providers Care Office Services Associate Name Role Phone Khadijah Neves MD Primary Care Provider Un available Yuniel Jurado MD Primary Care Provider Unav ailable Encounter Details Date Type Department Care Team Description 10/24/2019 Time Study Technician Report Medical Records [address] [place] [id number] Riaz Pardo MD Social History Tobacco Use [...] on filedocumented in this encounter Care Teams Office Services Associate Relationship Specialty Start Date End Date Khadijah Neves MD PCP - General 04/24/07 02/27/20 Yuniel Jurado MD PCP - General Family Practice 09/23/22 documented as of this encounter
--- OUTSIDE RECORDS SUMMARY | 2024-12-20 15:48 | XMS_ITS | Encounter Summary ---
Author Organization [facility] Address [address] [place] [address] Care Team Providers Care Radiagraph Operator Name Role Phone Khadijah Neves MD Primary Care Provider Un available Yuniel Jurado MD Primary Care Provider Unav ailable Reason for Visit * Reason Onset Date Comments Orders Call 12/09/2016 unresulted order s Encounter Details Date Type Department Care Team Description 12/09/2016 Telephone Medicine/Pediatrics - [address] [phone] Khadijah Neves MD Orders Call (unresulted orders) [...] on filedocumented in this encounter Care Teams Radiagraph Operator Relationship Specialty Start Date End Date Khadijah Neves MD PCP - General 04/24/07 02/27/20 Yuniel Jurado MD PCP - General Family Practice 09/23/22 documented as of this encounter
--- OUTSIDE RECORDS SUMMARY | 2024-12-20 15:48 | XMS_ITS | Encounter Summary ---
Author Organization [facility] Address [address] [place] [address] Care Team Providers Care Message And Delivery Service Pricer Name Role Phone Khadijah Neves MD Primary Care Provider Un available Yuniel Jurado MD Primary Care Provider Unav ailable Encounter Details Date Type Department Care Team Description 12/08/2016 Release of Information Medical Records [address] [place] [id number] Abstract, Provider Social History Tobacco Use Types [...] on filedocumented in this encounter Care Teams Message And Delivery Service Pricer Relationship Specialty Start Date End Date Khadijah Neves MD PCP - General 04/24/07 02/27/20 Yuniel Jurado MD PCP - General Family Practice 09/23/22 documented as of this encounter
--- OUTSIDE RECORDS SUMMARY | 2024-12-20 15:48 | XMS_ITS | Encounter Summary ---
Author Organization [facility] Address [address] [place] [address] Care Team Providers Care Truck Washer Name Role Phone Khadijah Neves MD Primary Care Provider Un available Yuniel Jurado MD Primary Care Provider Unav ailable Encounter Details Date Type Department Care Team Description 09/15/2016 Human Resources District Manager Report Medical Records [address] [place] [address] Reuben Seymour Social History Tobacco Use Types [...] on filedocumented in this encounter Care Teams Truck Washer Relationship Specialty Start Date End Date Khadijah Neves MD PCP - General 04/24/07 02/27/20 Yuniel Jurado MD PCP - General Family Practice 09/23/22 documented as of this encounter
--- OUTSIDE RECORDS SUMMARY | 2024-12-20 15:48 | XMS_ITS | Clinical Summary ---
Author Organization [employer] Address [address] [facility] [address] [place] [address] Care Team Providers Care Utility Worker Production Name Role Phone PcpManny Unassigned Primary Care [...] 3 Active ergocalciferol (Vitamin D-2) 1.25 MG (36890 UT) capsule Take 1 capsule by mouth [...] Description 01/03/2025 2:30 PM EDT Office Visit [place] [facility] [address] [place] [address] Lianna Crandall, OD [address] [place] [address] Health Maintenance Due Date Last Done Comments [...] Recently Relevant to Health Maintenance Insurance MEDICARE [facility] STANDARD HU[employer] PPO DENTAL-[facility] MEDICAID STAND ADULT Care Teams Utility Worker Production Relationship Specialty Start Date End Date Manny Schultz Unassigned PCP - General Family Medicine 12/13/22
== END 2024-12-20 14:24 | disposition home or self-care (01) ==
LOC: HO.LAB 14:23
PROVIDERS: PCP Family Medicine; Visit Provider Family Medicine
DX: Z13.89 Encounter for screening for other disorder (principal)

== ENCOUNTER 2024-12-21 11:08 | Outpatient (REF) | payer OTHER, MEDICAID, SELFPAY ==
--- NOTE | ~2024-12-21 | XR_ITS ---
EXAMINATION: XR ELBOW, RIGHT CLINICAL INFORMATION: M79.601 - Pain in right arm COMPARISON: None available. TECHNIQUE: AP, lateral, and oblique views of the right elbow. FINDINGS: No acute cortical disruption or malalignment. No gross joint effusion. No subcutaneous edema. No metallic or radiopaque foreign body. XR/XR elbow RT 2V IMPRESSION: No acute fracture or dislocation. Electronically signed by: Federico Shea MD 12/21/2024 12:10 PM EDT
--- NOTE | ~2024-12-21 | XR_ITS ---
EXAMINATION: XR FOREARM, RIGHT CLINICAL INFORMATION: M79.601 - Pain in right arm COMPARISON: Correlated to wrist and hand x-ray dated December 21, 2024. TECHNIQUE: AP and lateral views of the right forearm were obtained. FINDINGS: Impacted likely intra-articular fracture distal) and mid diaphysis of the radius. The ulna demonstrates a cortical irregularity in the distal metaphysis. Osteopenia versus osteoporosis. XR/XR forearm RT 2V IMPRESSION: Intra-articular impacted and dorsally angulated fracture distal right radius and nondisplaced fracture distal metaphysis, right ulna. Electronically signed by: Federico Shea MD 12/21/2024 12:06 PM EDT
--- NOTE | ~2024-12-21 | XR_ITS ---
EXAMINATION: XR HAND, RIGHT CLINICAL INFORMATION: M79.601 - Pain in right arm COMPARISON: Correlated to recent x-ray dated December 31, 2024. TECHNIQUE: PA, lateral, and oblique views of the right hand. FINDINGS: Intra-articular impacted dorsally angulated fracture distal metaphysis metaphysis of the radius and nondisplaced fracture distal metaphysis of the ulna. Degenerative changes in the proximal and distal interphalangeal joints of the digits. Osteopenia versus osteoporosis. Metacarpal bones are intact. Phalanges are intact with normal alignment. XR/XR hand RT 2V IMPRESSION: Osteopenia versus osteoporosis and osteoarthrosis, digits of the right hand. Please refer to the right wrist x-ray regarding the distal radius and ulna fractures. Electronically signed by: Federico Shea MD 12/21/2024 12:07 PM EDT
--- NOTE | ~2024-12-21 | XR_ITS ---
EXAMINATION: XR LUMBOSACRAL SPINE CLINICAL INFORMATION: M25.559 - Pain in unspecified hip COMPARISON: Correlated to MRI dated April 21, 2024. TECHNIQUE: Three views of the lumbosacral spine. FINDINGS: Multilevel compression deformities throughout the axial skeleton representing 40% volume loss. Radiopaque material within the vertebral body of L1. Levoconvex rotoscoliosis. Osteopenia versus the process. Grade 1 anterolisthesis L5-S1. Vascular calcifications, aorta Metallic hardware in the femur no clear site.. XR/XR lumbar spine 2-3V IMPRESSION: Multilevel subacute to old compression fractures throughout the axial skeleton and status post kyphoplasty/vertebroplasty procedure at L1. Osteopenia versus osteoporosis. Atherosclerosis disease. Electronically signed by: Federico Shea MD 12/21/2024 12:04 PM EDT
--- NOTE | ~2024-12-21 | XR_ITS ---
EXAMINATION: XR WRIST, RIGHT CLINICAL INFORMATION: M79.601 - Pain in right arm COMPARISON: None available. TECHNIQUE: PA, lateral, and oblique views of the right wrist. FINDINGS: Impacted and likely intra-articular compression fracture deformity distal epiphysis and metaphysis of the radius with dorsal angulation. Osteopenia versus osteoporosis. No lytic or blastic lesions. No acute cortical disruption or blastic lesions in the scaphoid. Metacarpal bones are intact. Normal alignment of the carpal bones. XR/XR wrist RT 2V IMPRESSION: Intra-articular dorsally angulated impacted fracture distal epiphysis and metaphysis of the right radius. Osteoporosis. Electronically signed by: Federico Shea MD 12/21/2024 12:02 PM EDT
--- NOTE | ~2024-12-21 | XR_ITS ---
EXAMINATION: XR HIP, RIGHT CLINICAL INFORMATION: M25.559 - Pain in unspecified hip COMPARISON: May 03, 2023. TECHNIQUE: Two views of the right hip. FINDINGS: Metallic hardware placed in the proximal right femur with an intramedullary ehnrry and metallic screws through the femoral head neck instability region and proximal diaphysis. Old traumatic deformity intertrochanteric region and proximal diaphysis. Cortical disruption in the superior and inferior right pubic rami and questionable in the superior left pubic ramus. Intramedullary henrry in the proximal left femur anchor with the femoral head neck instability region screw and small screw in the proximal diaphysis. XR/XR hip RT w PEL1V IMPRESSION: Fractures in the superior and inferior right pubic rami and likely superior left pubic ramus. New since prior exam. Status post open reduction internal fixation of the intertrochanteric fractures both femurs. Electronically signed by: Federico Shea MD 12/21/2024 12:10 PM EDT
[2024-12-21 14:06] LABS: Appearance Urine Cloudy; Color Urine Yellow; Glucose Urine UA Negative (Negative); Leukocyte Esterase Urine Large (3+) (Negative); Nitrite Urine Negative (Negative); UMIC TRIGGER UA YES; Urine Blood Small (1+) (Negative); Urine Ketones Negative (Negative); Urine Protein Trace mg/dL (Neg-Trace)
[2024-12-21 14:19] LABS: Bacteria Urine 4+ (None Seen); Hyaline Casts Urine 0-2 /LPF (0-2); Other Crystals Urine Present; WBC Urine >50 /HPF (0-5)
== END 2024-12-21 11:09 | disposition home or self-care (01) ==
LOC: HO.XRAY 11:08
PROVIDERS: PCP Family Medicine; Visit Provider Family Medicine
DX: M25.559 Pain in unspecified hip (principal); M79.601 Pain in right arm; R32 Unspecified urinary incontinence
CPT/HCPCS: 72100; 73070; 73090; 73100; 73120; 73502; 81001; 87086; 87088; 87186

== ENCOUNTER → 2024-12-21 11:15 | Outpatient (BNV) | payer OTHER, MEDICAID, SELFPAY | PROVIDERS: PCP Family Medicine; Visit Provider Radiology Diagnostic Radiology | DX: S22.010A Wedge compression fracture of first thoracic vertebra, initial encounter for closed fracture (principal); S32.511A Fracture of superior rim of right pubis, initial encounter for closed fracture; M79.601 Pain in right arm | CPT/HCPCS: 72100; 73070; 73090; 73100; 73120; 73502 ==

== ENCOUNTER 2024-12-26 09:30 | Outpatient (REF) | payer MEDICARE, MEDICAID, SELFPAY ==
--- NOTE | ~2024-12-26 | XR_ITS ---
EXAMINATION: XR PELVIS 1-2 VIEWS HISTORY: M25.559 - Pain in unspecified hip COMPARISON: Comparison is made with the prior examination dated 12/21/2024. FINDINGS: A single AP view of the pelvis is submitted. The patient is again noted to be status post internal fixation of the bilateral hips with compression screws and intramedullary rods. The orthopedic hardware is intact. Again seen are fractures of the right superior and inferior pubic rami. The appearances not significantly changed from the prior study. There is moderate narrowing of the hip joints, left greater than right. XR/XR pelvis 1-2V IMPRESSION: Fractures of the right superior and inferior pubic rami without change. Electronically signed by: Reuben Eli MD 12/26/2024 01:31 PM EDT
--- OUTSIDE RECORDS SUMMARY | 2024-12-27 10:18 | XMS_ITS | Clinical Summary ---
Author Organization [employer] Address [address] [facility] [address] [place] [address] Care Team Providers Care Tester/Lift Trucker Name Role Phone PcpManny Unassigned Primary Care [...] 3 Active ergocalciferol (Vitamin D-2) 1.25 MG (21414 UT) capsule Take 1 capsule by mouth [...] Description 01/03/2025 2:30 PM EDT Office Visit [place] [facility] [address] [place] [address] Lianna Crandall, OD [address] [place] [address] Health Maintenance Due Date Last Done Comments [...] patient's age to complete this topic Meningococcal B Vaccine Aged Out No l onger eligible based on patient's age to complete [...] Recently Relevant to Health Maintenance Insurance MEDICARE [facility] STANDARD HUMANA PPO DENTAL-[facility] MEDICAID STAND ADULT Care Teams Tester/Lift Trucker Relationship Specialty Start Date End Date Manny Schultz Unassigned PCP - General Family Medicine 12/13/22
== END 2024-12-26 09:31 | disposition home or self-care (01) ==
LOC: HO.HOSX 09:30
PROVIDERS: Visit Provider Physician Assistant
DX: M25.559 Pain in unspecified hip (principal)
CPT/HCPCS: 72170

== ENCOUNTER 2024-12-26 10:50 | Outpatient (AMB) | payer OTHER, MEDICAID, SELFPAY ==
--- NOTE | 2024-12-26 11:08 | A.OFFVIS_ITS ---
Vital Signs 12/26/24 11:16 Height 5 ft Weight 107 lb BMI 20.9 Intake Visit Reasons: FC-Pelvic closed fx Intake Note: Iram is a 74 year old female who presents today in a wheelchair for a fracture care visit s/p fall. Patient was seen by her PCP office about 10 days from a fall with complaints of right sided pain after she had a fall with after getting up to use the bathroom. X-rays were ordered and referred to orthopedics for a pelvic fracture. Today patient reports she is feeling better. She has been trying to get up and walk a little with assistance. She is unable to use a walker due to her right wrist. States her back is not bothering her. Allergies alendronate sodium [From Fosamax] Allergy (Mild, Verified 12/26/24 11:11) Hives Medication List - Last Reconciled 12/26/24 by Jerome Vargas PA-C acyclovir 400 mg PO DAILY albuterol sulfate 90 mcg/actuation (Ventolin HFA) 2 puffs inhalation Q4-6H PRN 30 days alendronate 70 mg PO QWEEK 28 days celecoxib (Celebrex) 200 mg PO BID PRN 90 days cetirizine 10 mg PO DAILY PRN 90 days cholecalciferol (vitamin D3) 50 mcg PO DAILY 90 days citalopram 30 mg (1.5 x 20 mg) PO DAILY 90 days diaper,brief,adult,disposable 4 times a day, As directed, 30 days diclofenac sodium 1% (Arthritis Pain (diclofenac)) 4 grams topical QID 30 days gabapentin 1-2 caps p.o. q.i.d. orally 4 times a day; 30 days lidocaine 5% 1 patch topical DAILY 30 days lisinopril 20 mg PO DAILY 90 days miscellaneous medical supply Motorized?scooter,?As directed, 999 days miscellaneous medical supply Wheelchair. As directed, 999 days nitrofurantoin monohyd/m-cryst 100 mg (Macrobid) 100 mg PO BID 7 days oxybutynin chloride 5 mg PO TID 30 days oxycodone-acetaminophen 5-325 mg (Percocet) 1 tab PO Q6H PRN 30 days trazodone 150 mg (1.5 x 100 mg) PO BEDTIME 30 days walker Lightweight walker daily?As directed, 999 days HPI HPI FC-Pelvic closed fx: Details: 74-year-old female presents to the office today referred by her primary care provider for an injury she sustained to her right pubic rami and right distal radius approximately 3 weeks ago. She was at home when she fell landing on the right side. She was seen by her PCP on 12/20 who ordered x-ray imaging studies which did result in fracture. She was referred to our office for further recommendations. She states she has been using a walker for ambulation and weight-bearing on the leg for pivoting only. She has a Velcro wrist splint on her right wrist which she has had from prior injuries. She has minimal discomfort. She also has 24 hour care at home and VNA services. [facility] Medical History Pure hypercholesterolemia Carpal tunnel syndrome Smoking Osteoporosis Overactive bladder Kyphoscoliosis deformity of spine Chronic back pain greater than 3 months duration Sternal fracture COPD with emphysema Ascending aorta dilation Surgical History History of kyphoplasty History of hip surgery Social History Household Members: Spouse Housing: House Are you a primary certified social workers in health care to a significant other at home: No Do you presently have visiting nurse or other home services: [facility]) Patient Tobacco Use Status: Current someday Tobacco user Tobacco use type: Cigarette Cigarette Packs Per Day: 0.5 Cigarettes Per Day: 10.0 e-Cigarette/Vaping Use: Never Used Second Hand Smoke Exposure: No service: No Current occupational status: retired and disabled Current occupational exposures/hazards: No Cognitive needs: No Hearing needs: No Vision needs: No Review of Systems Const All systems reviewed & are unremarkable except as noted in HPI and below Physical Exam Vital Signs: BMI result Body Mass Index 20.9 Const General: cooperative and no acute distress Orientation/consciousness: patient oriented x3 Resp Effort & Inspection: normal respiratory effort and able to speak in complete sentences Cardio Peripheral pulses: Peripheral pulses 2+ throughout Neuro General: patient oriented x3 Extrem Other: Right hip is normal to inspection she is able to perform hip flexion and range of motion with mild discomfort. Neurovascularly intact. Right wrist skin is intact no swelling or ecchymosis present. She has little to no tenderness over the distal radius. She can make a full fist and extend all digits. Neurovascularly intact. Office Procedures AMB Fracture Care Fracture Billing Code: Fracture Billing Code Results Reviewed Results Reviewed: X-rays of the right hip obtained in the office today and reviewed by me show a superior pubic rami fracture with minimal displacement. X-rays of the right wrist obtained on 12 21 at an outside facility show a nondisplaced distal radius fracture with mild dorsal angulation.. This could also be an acute on chronic fracture. Assessment & Plan Assessment & Plan (1) Fracture of pubic ramus: Code(s): S32.599A - Other specified fracture of unspecified pubis, initial encounter for closed fracture Category: Medical Plan: She can weightbear as tolerated on the right lower extremity with a walker. She will continue working with her physical therapist for gait training. She will see me back in 4-6 weeks with repeat x-rays. (2) Distal radial fracture: Code(s): S52.509A - Unspecified fracture of the lower end of unspecified radius, initial encounter for closed fracture Category: Medical Plan: She was fit for a new Velcro wrist splint in the office today which she will wear at all times. She can remove for hygiene. No lifting more than a cell phone. I did explain with the angulation on the lateral imaging there is always a risk of further displacement however this does appear to be a an acute on chronic finding. She will see us back in 4-6 weeks with x-rays sooner if needed. Orders: Orders XR pelvis 1-2V Today M25.559 - Pain in unspecified hip Coding Level of Care Code New Pt Level 4 (14577) Complex EM visit Add On G2211 Diagnoses Fracture of pubic ramus S32.599A Distal radial fracture S52.509A CPT Codes Fracture Care - Fracture Billing Code: Fracture Billing Code ([id number])
[2024-12-26 11:16] VITALS: BMI 20.9
--- OUTSIDE RECORDS SUMMARY | 2024-12-26 11:55 | XMS_ITS | Clinical Summary ---
Author Organization [employer] Address [address] [facility] [address] [place] [address] Care Team Providers Care Disk Sharpener Name Role Phone PcpManny Unassigned Primary Care [...] 3 Active ergocalciferol (Vitamin D-2) 1.25 MG (27066 UT) capsule Take 1 capsule by mouth [...] duration 04/15/2015 Carpal tunnel syndrome 05/30/2007 Immunizations Immunization Administration Dates Next Due Influenza High-dose Quadrivalent [...] Description 01/03/2025 2:30 PM EDT Office Visit [place] [facility] [address] [place] [address] Lianna Crandall, OD [address] [place] [address] Health Maintenance Due Date Last Done Comments [...] Recently Relevant to Health Maintenance Insurance MEDICARE [facility] STANDARD [employer] PPO DENTAL-[facility] MEDICAID STAND ADULT Care Teams Disk Sharpener Relationship Specialty Start Date End Date Manny Schultz Unassigned PCP - General Family Medicine 12/13/22
== END 2024-12-26 11:40 | disposition home or self-care (01) ==
LOC: HO.HOS 10:51
PROVIDERS: PCP Family Medicine; Visit Provider Physician Assistant
DX: S32.591A Other specified fracture of right pubis, initial encounter for closed fracture (principal); S52.501A Unspecified fracture of the lower end of right radius, initial encounter for closed fracture
CPT/HCPCS: 99204; G2211

== ENCOUNTER → 2024-12-26 11:01 | Outpatient (BNV) | payer OTHER, MEDICAID, SELFPAY | PROVIDERS: Visit Provider Radiology Diagnostic Radiology | DX: M25.559 Pain in unspecified hip (principal) | CPT/HCPCS: 72170 ==

== ENCOUNTER 2025-02-13 06:36 | Outpatient (REF) | payer MEDICARE, MEDICAID, SELFPAY ==
--- NOTE | ~2025-02-13 | XR_ITS ---
EXAMINATION: XR PELVIS CLINICAL INFORMATION: M25.559 - Pain in unspecified hip COMPARISON: December 26, 2024 TECHNIQUE: AP view of the pelvis. FINDINGS: Postsurgical changes with ORIF of both hips. Right hip demonstrates short intramedullary nail with distal screw and 2 lag screws. Left hip demonstrates short intramedullary nail, distal cortical screw, and a single lag screw. There is no change in appearance of the hardware and no sign of loosening. There is acetabular over coverage of both hip joints. There is mild right and moderate left axial joint space narrowing in the hips. Right pubic ring fracture demonstrates periosteal new bone formation consistent with healing There is diffuse osteopenia. XR/XR pelvis 1-2V IMPRESSION: Healing right pubic ring fracture. Osteopenia. Mild right and moderate left axial joint space narrowing suggestive of primary articular cartilage abnormality. ORIF of bilateral hips, stable. IMPRESSION: Normal pelvis. Electronically signed by: Ajay Vera MD 02/13/2025 03:39 PM EDT
--- NOTE | ~2025-02-13 | XR_ITS ---
EXAMINATION: XR WRIST 3 OR MORE VIEWS RIGHT HISTORY: M25.531 - Pain in right wrist COMPARISON: Comparison is made with the prior examination dated 12/21/2024. FINDINGS: Three views of the right wrist are submitted. The bones are osteopenic. Again seen is an impacted fracture of the distal radial metaphysis. There is mild to moderate degenerative change of the radial aspect of the carpus. The soft tissues are unremarkable. XR/XR wrist RT min 3V IMPRESSION: Osteopenia. Impacted fracture of the distal radius. Electronically signed by: Reuben Eli MD 02/13/2025 03:24 PM EDT
--- OUTSIDE RECORDS SUMMARY | 2025-02-14 06:39 | XMS_ITS | Clinical Summary ---
Author Organization [employer] Address [address] [facility] 7t [place] [address] Care Team Providers Care Newscast Director Name Role Phone PcpManny Unassigned Primary Care [...] 3 Active ergocalciferol (Vitamin D-2) 1.25 MG (03552 UT) capsule Take 1 capsule by mouth [...] Recently Relevant to Health Maintenance Insurance MEDICARE Member Subscriber Plan / Payer (Ef fective 2022-Present) Name:Iram Birmingham V Member ID:[id number] Relation to Subscriber:Self Name:Iram Birmingham V Subscriber ID:[id number] Payer ID:STATE Group ID:Not on file Type:Medicare Address: [place] [employer] [facility], [facility] [address] [place] [address] [place] [phone] [id number] [place]NA PPO [place] STAND ADULT Care Teams Newscast Director Relationship Specialty Start Date End Date Manny Schultz Unassigned PCP - General Family Medicine 12/13/22
== END 2025-02-13 06:37 | disposition home or self-care (01) ==
LOC: HO.HOSX 06:36
PROVIDERS: Visit Provider Physician Assistant
DX: S52.501D Unspecified fracture of the lower end of right radius, subsequent encounter for closed fracture with routine healing (principal); S32.591D Other specified fracture of right pubis, subsequent encounter for fracture with routine healing
CPT/HCPCS: 72170; 73110; 99212

== ENCOUNTER 2025-02-13 13:21 | Outpatient (AMB) | payer MEDICARE, MEDICAID, SELFPAY ==
[2025-02-13 13:33] VITALS: BMI 20.9
--- NOTE | 2025-02-13 13:33 | A.OFFVIS_ITS ---
Vital Signs 02/13/25 13:33 Height 5 ft Weight 107 lb BMI 20.9 Intake Visit Reasons: ov- Fracture of pubic ramus Intake Note: Iram is a 74 year old female who presents today in a wheelchair for a follow up visit of pubic ramus fracture and right distal radius fracture status post fall. At her last visit she was instructed to continues working with her physical therapist for gait training. She will follow up in 4-6 weeks with new x-rays. Today patient reports having improvement, she reports she is using a walker at home. She reports she is having constant pain in her wrist area. States no pain in her pelvic area, however has some discomfort that she describes as a hiccup feeling. Allergies alendronate sodium (From Fosamax) Allergy (Mild, Verified 02/13/25 13:51) Hives HPI HPI ov- Fracture of pubic ramus: Details: 74-year-old female returns to the office today for a follow-up right pubic rami fracture along with right wrist injury. She is doing well. She comes in today with a wheelchair but states she has been climbing stairs. She uses a wrist brace for the right wrist. She also has chronic back pain due to compression fractures. She is on chronic Percocet from her primary care provider. She is currently frustrated because he is not refilling her medications and states he is not returning her phone calls. She also has her son with her who was also agitated. [facility] Medical History Pure hypercholesterolemia Carpal tunnel syndrome Smoking Osteoporosis Overactive bladder Kyphoscoliosis deformity of spine Chronic back pain greater than 3 months duration Sternal fracture COPD with emphysema Ascending aorta dilation Surgical History History of kyphoplasty History of hip surgery Social History Household Members: Spouse Housing: House Are you a primary intensive care medicine specialist to a significant other at home: No Do you presently have visiting nurse or other home services: Yes (hooker laster) Patient Tobacco Use Status: Current someday Tobacco user Tobacco use type: Cigarette Cigarette Packs Per Day: 0.5 Cigarettes Per Day: 10.0 e-Cigarette/Vaping Use: Never Used Second Hand Smoke Exposure: No service: No Current occupational status: retired and disabled Current occupational exposures/hazards: No Cognitive needs: No Hearing needs: No Vision needs: No Review of Systems Const All systems reviewed & are unremarkable except as noted in HPI and below Physical Exam Vital Signs: BMI result Body Mass Index 20.9 Const General: cooperative and no acute distress Orientation/consciousness: patient oriented x3 Resp Effort & Inspection: normal respiratory effort and able to speak in complete sentences Cardio Peripheral pulses: Peripheral pulses 2+ throughout Neuro General: patient oriented x3 Extrem Other: Right hip is normal to inspection she is able to perform hip flexion and range of motion with mild discomfort. Neurovascularly intact. Right wrist skin is intact no swelling or ecchymosis present. She has little to no tenderness over the distal radius. She can make a full fist and extend all digits. Neurovascularly intact. Results Reviewed Results Reviewed: X-rays of the right hip obtained in the office today and reviewed by me show a superior pubic rami fracture with minimal displacement and interval healing. X-rays of the right wrist obtained in the office today and reviewed by me show a nondisplaced distal radius fracture with mild dorsal angulation. There is evidence of interval healing. Assessment & Plan Assessment & Plan (1) Fracture of pubic ramus: Code(s): S32.599A - Other specified fracture of unspecified pubis, initial encounter for closed fracture Category: Medical Plan: She can continue weightbear as tolerated on the right lower extremity with a walker. She will continue working with her physical therapist for gait training and strengthening exercises. She will see me back in 8 weeks with repeat x- rays. (2) Distal radial fracture: Code(s): S52.509A - Unspecified fracture of the lower end of unspecified radius, initial encounter for closed fracture Category: Medical Plan: She will continue with a wrist brace as needed for discomfort. 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 I did place a message to the primary care providers at [address] [place] [address] to see if they have any interest in assuming her care as a primary care provider. Orders: Orders XR wrist RT min 3V Today M25.531 - Pain in right wrist XR pelvis 1-2V Today M25.559 - Pain in unspecified hip Coding Level of Care Code Global (33346) Diagnoses Fracture of pubic ramus S32.599A Distal radial fracture S52.509A
--- OUTSIDE RECORDS SUMMARY | 2025-02-13 13:58 | XMS_ITS | Clinical Summary ---
Author Organization [employer] Address [address] [facility] 7t [place] [address] Care Team Providers Care Hyperbaric Nurse Name Role Phone PcpManny Unassigned Primary Care [...] 3 Active ergocalciferol (Vitamin D-2) 1.25 MG (84197 UT) capsule Take 1 capsule by mouth [...] PM EDT Pulse - - Temperature 36.5 C (97.7 F) 12/13/2022 3:18 PM EDT Respiratory Rate - - Oxygen Saturation - - Inhaled Oxygen Concentration - - Weight - - Height - - Body Mass Index - - Plan of Treatment Health Maintenance Due Date [...] Vaccine ( season) 2024 05/27/2021, 11/22/2020, 11/01/2020 Dental X-Ray: Full Mouth 01/05/2025 01/04/2022 Influenza Vaccine (Season Ended) 2025 05/21/2021, 07/03/2020, 07/17/2019, Additional history exists Pneumococcal Vaccine: 50+ Years Completed 07/17/2019, 2018 [...] Recently Relevant to Health Maintenance Insurance [place] [address] [place] [phone] [facility] [place]NA PPO [place] STAND ADULT Care Teams Hyperbaric Nurse Relationship Specialty Start Date End Date Manny Schultz Unassigned PCP - General Family Medicine 12/13/22
== END 2025-02-13 14:15 | disposition home or self-care (01) ==
LOC: HO.HOS 13:22
PROVIDERS: Visit Provider Physician Assistant
DX: S32.591A Other specified fracture of right pubis, initial encounter for closed fracture (principal); S52.501A Unspecified fracture of the lower end of right radius, initial encounter for closed fracture
CPT/HCPCS: 99213

== ENCOUNTER → 2025-02-13 13:23 | Outpatient (BNV) | payer MEDICARE, MEDICAID, SELFPAY | PROVIDERS: Visit Provider Radiology Diagnostic Radiology | DX: M85.841 Other specified disorders of bone density and structure, right hand (principal); M25.559 Pain in unspecified hip | CPT/HCPCS: 72170; 73110 ==

== ENCOUNTER 2025-04-10 13:07 | Outpatient (REF) | payer MEDICARE, MEDICAID, SELFPAY ==
--- NOTE | ~2025-04-10 | XR_ITS ---
EXAMINATION: XR PELVIS 1-2 VIEWS HISTORY: M25.559 - Pain in unspecified hip COMPARISON: Comparison is made with the prior examination dated 02/13/2025. FINDINGS: A single AP view of the pelvis is submitted. The bones are osteopenic. The patient is again noted to be status post internal fixation of both hips with compression screws and intramedullary rods. There are healing fractures of the right superior and inferior pubic rami with callus formation. The fracture lines remain visible. There is mild narrowing of both hips. The soft tissues are unremarkable. XR/XR pelvis 1-2V IMPRESSION: Healing fractures of the right superior and inferior pubic rami. Electronically signed by: Reuben Eli MD 04/10/2025 01:53 PM EDT
--- OUTSIDE RECORDS SUMMARY | 2025-04-10 13:36 | XMS_ITS | Clinical Summary ---
Author Organization [facility] Address [address] [place] [address] Care Team Providers Care Executive Director Of Marketing Name Role Phone Yuniel Jurado MD Primary [...] Tab 2 11/15/2018 Active vitamin D (ERGOCALCIFEROL) 72576 UNITS capsule TAKE 1 CAPSULE BY MOUTH [...] 0 04/19/2019 Active oxyCODONE HCl 10 MG TabIndications:Cloth Dyeing Range Tender andria back pain greater than 3 months [...] 84 03/12/2019 11:37 AM EDT Temperature 36.8 C (98.3 F) 02/22/2019 10:12 AM EDT Respiratory Rate 16 03/12/2019 11:37 AM EDT [...] 03/12/2019, 06/2019, 10/12/2018, Additional history exists INFLUENZA (#1) 2025 07/17/2019, 2018 HEPATITIS C SCREENING Completed 10/12/2013 PNEUMOCOCCAL VACCINE Completed 07/17/2019, 07/12/20 18 Care Teams Executive Director Of Marketing Relationship Specialty Start Date End Date Yuniel Jurado MD PCP - General Family Practice 09/23/22
--- OUTSIDE RECORDS SUMMARY | 2025-04-10 13:36 | XMS_ITS | Encounter Summary ---
Author Organization [facility] Address [address] [place] [address] Care Team Providers Care Double End Tenoner Setter Name Role Phone Khadijah Neves MD Primary Care Provider Un available Yuniel Jurado MD Primary Care Provider Unav ailable Encounter Details Date Type Department Care Team Description 04/11/2017 PNO Controlled Substance Contract Medical Records [address] [place] [address] Abstract, Provider Social History Tobacco Use Types [...] on filedocumented in this encounter Care Teams Double End Tenoner Setter Relationship Specialty Start Date End Date Khadijah Neves MD PCP - General 04/24/07 02/27/20 Yuniel Jurado MD PCP - General Family Practice 09/23/22 documented as of this encounter
--- OUTSIDE RECORDS SUMMARY | 2025-04-10 13:36 | XMS_ITS | Encounter Summary ---
Author Organization [facility] Address [address] [place] [address] Care Team Providers Care Human Resources Records Clerk Name Role Phone Khadijah Neves MD Primary Care Provider Un available Yuniel Jurado MD Primary Care Provider Unav ailable Encounter Details Date Type Department Care Team Description 01/13/2015 Business Doc Medical Records [address] [place] [id number] Abstract, Provider Social History Tobacco Use Types [...] in this encounter Care Teams Human Resources Records Clerk Relationship Specialty Start Date End Date Khadijah Neves MD PCP - General 04/24/07 02/27/20 Yuniel Jurado MD PCP - General Family Practice 09/23/22 documented as of this encounter
--- OUTSIDE RECORDS SUMMARY | 2025-04-10 13:36 | XMS_ITS | Encounter Summary ---
Author Organization [facility] Address [address] [place] [address] Care Team Providers Care Hospitality Ambassador Name Role Phone Khadijah Neves MD Primary Care Provider Un available Yuniel Jurado MD Primary Care Provider Unav ailable Encounter Details Date Type Department Care Team Description 11/25/2014 Controlled Substance Plan Medical Records [address] [place] [address] Abstract, Provider Social History Tobacco Use Types [...] on filedocumented in this encounter Care Teams Hospitality Ambassador Relationship Specialty Start Date End Date Khadijah Neves MD PCP - General 04/24/07 02/27/20 Yuniel Jurado MD PCP - General Family Practice 09/23/22 documented as of this encounter
--- OUTSIDE RECORDS SUMMARY | 2025-04-10 13:36 | XMS_ITS | Encounter Summary ---
Author Organization [facility] Address [address] [place] [address] Care Team Providers Care Social Science Analyst Name Role Phone Khadijah Neves MD Primary Care Provider Un available Yuniel Jurado MD Primary Care Provider Unav ailable Encounter Details Date Type Department Care Team Description 10/24/2019 Outbound Sales Executive Report Medical Records [address] [place] [id number] Riaz Pardo MD Social History Tobacco Use [...] on filedocumented in this encounter Care Teams Social Science Analyst Relationship Specialty Start Date End Date Khadijah Neves MD PCP - General 04/24/07 02/27/20 Yuniel Jurado MD PCP - General Family Practice 09/23/22 documented as of this encounter
--- OUTSIDE RECORDS SUMMARY | 2025-04-10 13:36 | XMS_ITS | Encounter Summary ---
Author Organization [facility] Address [address] [place] [address] Care Team Providers Care Chief Ultrasound Technologist Name Role Phone Khadijah Neves MD Primary Care Provider Un available Yuniel Jurado MD Primary Care Provider Unav ailable Encounter Details Date Type Department Care Team Description 07/21/2017 Release of Information Medical Records [address] [place] [id number] Abstract, Provider Social History Tobacco Use Types [...] filedocumented in this encounter Care Teams Chief Ultrasound Technologist Relationship Specialty Start Date End Date Khadijah Neves MD PCP - General 04/24/07 02/27/20 Yuniel Jurado MD PCP - General Family Practice 09/23/22 documented as of this encounter
--- OUTSIDE RECORDS SUMMARY | 2025-04-10 13:37 | XMS_ITS | Encounter Summary ---
Author Organization [facility] Address [address] [place] [address] Care Team Providers Care Solar Systems Designer Name Role Phone Khadijah Neves MD Primary Care Provider Un available Yuniel Jurado MD Primary Care Provider Unav ailable Encounter Details Date Type Department Care Team Description 07/15/2015 BIODIESEL DIVISION MANAGER/Mass[employer] Report Medical Records [address] [place] [address] Abstract, Provider Social History Tobacco Use Types [...] on filedocumented in this encounter Care Teams Solar Systems Designer Relationship Specialty Start Date End Date Khadijah Neves MD PCP - General 04/24/07 02/27/20 Yuniel Jurado MD PCP - General Family Practice 09/23/22 documented as of this encounter
--- OUTSIDE RECORDS SUMMARY | 2025-04-10 13:37 | XMS_ITS | Encounter Summary ---
Author Organization [facility] Address [address] [place] [address] Care Team Providers Care Carbon Paper Machine Operator Name Role Phone Khadijah Neves MD Primary Care Provider Un available Yuniel Jurado MD Primary Care Provider Unav ailable Encounter Details Date Type Department Care Team Description 07/14/2018 Business Doc Medical Records [address] [place] [address] Abstract, Provider Social History Tobacco Use Types [...] on filedocumented in this encounter Care Teams Carbon Paper Machine Operator Relationship Specialty Start Date End Date Khadijah Neves MD PCP - General 04/24/07 02/27/20 Yuniel Jurado MD PCP - General Family Practice 09/23/22 documented as of this encounter
--- OUTSIDE RECORDS SUMMARY | 2025-04-10 13:37 | XMS_ITS | Encounter Summary ---
Author Organization [facility] Address [address] [place] [address] Care Team Providers Care Phlebotomy Specialist Name Role Phone Khadijah Neves MD Primary Care Provider Un available Yuniel Jurado MD Primary Care Provider Unav ailable Encounter Details Date Type Department Care Team Description 07/15/2015 Controlled Substance Plan Medical Records [address] [place] [address] Abstract, Provider Social History Tobacco Use Types [...] on filedocumented in this encounter Care Teams Phlebotomy Specialist Relationship Specialty Start Date End Date Khadijah Neves MD PCP - General 04/24/07 02/27/20 Yuniel Jurado MD PCP - General Family Practice 09/23/22 documented as of this encounter
--- OUTSIDE RECORDS SUMMARY | 2025-04-10 13:37 | XMS_ITS | Encounter Summary ---
Author Organization [facility] Address [address] [place] [address] Care Team Providers Care Nuisance Wildlife Specialist Name Role Phone Khadijah Neves MD Primary Care Provider Un available Yuniel Jurado MD Primary Care Provider Unav ailable Encounter Details Date Type Department Care Team Description 06/14/2016 [facility] Medical Records [address] [place] [address] Abstract, Provider Social History Tobacco Use Types [...] on filedocumented in this encounter Care Teams Nuisance Wildlife Specialist Relationship Specialty Start Date End Date Khadijah Neves MD PCP - General 04/24/07 02/27/20 Yuniel Jurado MD PCP - General Family Practice 09/23/22 documented as of this encounter
--- OUTSIDE RECORDS SUMMARY | 2025-04-10 13:37 | XMS_ITS | Encounter Summary ---
Author Organization [facility] Address [address] [place] [address] Care Team Providers Care Workers' Compensation Claims Supervisor Name Role Phone Khadijah Neves MD Primary Care Provider Un available Yuniel Jurado MD Primary Care Provider Unav ailable Encounter Details Date Type Department Care Team Description 06/14/2016 [facility] Medical Records [address] [place] [address] Abstract, Provider Social History Tobacco Use Types [...] on filedocumented in this encounter Care Teams Workers' Compensation Claims Supervisor Relationship Specialty Start Date End Date Khadijah Neves MD PCP - General 04/24/07 02/27/20 Yuniel Jurado MD PCP - General Family Practice 09/23/22 documented as of this encounter
--- OUTSIDE RECORDS SUMMARY | 2025-04-10 13:38 | XMS_ITS | Encounter Summary ---
Author Organization [facility] Address [address] [place] [address] Care Team Providers Care Parts Cataloger Name Role Phone Khadijah Neves MD Primary Care Provider Un available Yuniel Jurado MD Primary Care Provider Unav ailable Reason for Referral * EXTERNAL (Routine) - Authorized/Booked Specialty Diagnoses / Procedures Referred By Contadriano t Referred To Contact CARDIAC SURGERY Procedures REFERRAL TO CARDIAC SURGERY Margaret Simental MD [address] [place] [address] [address] Referral ID Status Reason Start Date Expiration Date V isits Requested Visits Authorized SEE NOTE Authorized/B ooked 03/16/2019 06/16/2019 1 1 Reason for Visit * Reason Onset Date Comments Sample Washer Feedback 03/16/2019 Thoracic Surgery vs Cardiac Thoracic Surgery Encounter Details Date Type Department Care Team Description 03/16/2019 Telephone Medicine/Pediatrics - [place] [address] [place] [phone] Margaret Simental MD Sample Washer Feedback (Thoracic Surgery vs Cardiac Thoracic Surgery) Social History Tobacco Use Types Packs/Day Years Used Date Smoking Tobacco: Every Day Cigarettes 0.2 Smokeless Tobacco: Never Alcohol Use Standard Drinks/Week Comments Yes 46.7 (1 standard dri nk = 0.6 oz pure alcohol) 3-4 cocktails of vodka and juice per night. Sex Assigned at Date Recorded Not on file documented as of this encounter Miscellaneous Notes * Telephone Encounter - Margaret Simental MD - 03/16/2019 10:15 AM EDT Thanks sorry about that * Telephone Encounter - Jazmine Costello - 03/16/2019 7:[address] Webb, You recently placed a thoracic surgery referral for patient to be seen for an ascending aneurysm. Thoracic surgery will not see this diagnosis it needs to go to Cardiac Thoracic Surgery instead. I have pended you a new referral. Please review and sign. Thank you, Jazmine Referrals Department documented in this encounter Plan of Treatment Not on file documented as of this encounter Visit Diagnoses Not on filedocumented in this encounter Care Teams Parts Cataloger Relationship Specialty Start Date End Date Khadijah Neves MD PCP - General 04/24/07 02/27/20 Yuniel Jurado MD PCP - General Family Practice 09/23/22 documented as of this encounter
--- OUTSIDE RECORDS SUMMARY | 2025-04-10 13:38 | XMS_ITS | Encounter Summary ---
Author Organization [facility] Address [address] [place] [address] Care Team Providers Care Senior Sas Programmer Name Role Phone Khadijah Neves MD Primary Care Provider Un available Yuniel Jurado MD Primary Care Provider Unav ailable Reason for Visit * Reason Onset Date Comments Orders Call 12/09/2016 unresulted order s Encounter Details Date Type Department Care Team Description 12/09/2016 Telephone Medicine/Pediatrics - [address] [phone] Khadijah Neves MD Orders Call (unresulted orders) [...] on filedocumented in this encounter Care Teams Senior Sas Programmer Relationship Specialty Start Date End Date Khadijah Neves MD PCP - General 04/24/07 02/27/20 Yuniel Jurado MD PCP - General Family Practice 09/23/22 documented as of this encounter
--- OUTSIDE RECORDS SUMMARY | 2025-04-10 13:38 | XMS_ITS | Encounter Summary ---
Author Organization [facility] Address [address] [facility] [address] [place] [phone] Phone Care Team Providers Care Ferryboat Operator Name Role Phone Francisco Mane CNP Primary Care Provider Rodrigue Boyce MD Unavailable [phone] Megan Rosas MD Unavailable [phone] Pcp, Unknown Primary Care Provider Unavailabl e Encounter Details Date Type Department Care Team (Late st Contact Info) Description 03/20/2021 Procedure Pass [facility] Imaging - Peripoerative Interventional Radiology [address] [facility] 4th [place] [address] Social History Tobacco Use Types Packs/Day Years Used Date Smoking Tobacco: Some Days Cigarettes 1 27.6 Started: 04/15/1993; Last attempted to quit: 11/2020 Smokeless Tobacco: Never Comments:had quit in November ut restarted February. Alcohol Use Standard Drinks/Week Comments Yes 2 (1 standard drink = 0.6 oz pur e alcohol) Comments Unknown Sex and Gender Information Value Date Recorded Sex Assigned at Female 10/25/2020 12:47 AM EST Legal Sex Female 2:51 PM EDT Gender Identity Female 10/25/2020 12:47 AM EST Sexual Orientation Not on file Occupation Industry Job Start Date Job End Date disability Not on file Not on file Not on file documented as of this encounter Plan of Treatment Not on file documented as of this encounter Visit Diagnoses Not on filedocumented in this encounter Care Teams Ferryboat Operator Relationship Specialty Start Date End Date Francisco Mane CNP [address] [facility] [place] [address] PCP - General Family Medicine 07/17/19 03/14/22 Pcp, Unknown PCP - General 03/15/22 Rodrigue Boyce MD [address] [facility] [place] [address] Insurance Assigned Provider Internal Medicine 04/03/20 Megan Rosas MD [address] [facility] [place] [address] [email or web address] Insurance Assigned Provider 11/22/20 08/21/22 documented as of this encounter Additional Source Comments The information contained in this document represents components of the legal health record. It is not the complete legal health record.[facility]
--- OUTSIDE RECORDS SUMMARY | 2025-04-10 13:38 | XMS_ITS | Clinical Summary ---
Author Organization [employer] Address [address] [facility] [address] [place] [address] Care Team Providers Care Tumbler Operator Name Role Phone PcpManny Unassigned Primary Care [...] 3 Active ergocalciferol (Vitamin D-2) 1.25 MG (76588 UT) capsule Take 1 capsule by mouth [...] X-Ray: Bitewings 01/05/2023 01/04/2022 COVID-19 Vaccine ( - season) 2024 05/27/2021, 11/22/2020, 11/01/2020 Dental X-Ray: Full Mouth 01/05/2025 01/04/2022 Influenza Vaccine (#1) 2025 1, 07/03/2020, 07/17/2019, Additional history exists Pneumococcal Vaccine: [...] Recently Relevant to Health Maintenance Insurance [place] [address] [place] [phone] [facility] [place]NA PPO [place] STAND ADULT Care Teams Tumbler Operator Relationship Specialty Start Date End Date Manny Schultz Unassigned PCP - General Family Medicine 12/13/22
--- OUTSIDE RECORDS SUMMARY | 2025-04-10 13:38 | XMS_ITS | Encounter Summary ---
Author Organization [facility] Address [address] [facility] [address] [place] [address] Phone Care Team Providers Care Heel Nailing Machine Operator Name Role Phone Francisco Mane CNP Primary Care Provider Rodrigue Boyce MD Unavailable [phone] Megan Rosas MD Unavailable [phone] Pcp, Unknown Primary Care Provider Unavailabl e Encounter Details Date Type Department Care Team (Late st Contact Info) Description 02/26/2021 Procedure Pass [facility], [address] [address] Social History Tobacco Use Types Packs/Day Years Used Date Smoking Tobacco: Former Cigarettes 1 27.6 0 04/15/1993 - 11/2020 Smokeless Tobacco: Former Comments:only OP's Alcohol Use Standard Drinks/Week Comments Yes 0 (1 standard drink = 0.6 oz pur [...] on filedocumented in this encounter Care Teams Heel Nailing Machine Operator Relationship Specialty Start Date End Date Francisco Mane CNP [address] [facility], [address] [place], [place] [id number] PCP - General Family Medicine 07/17/19 03/14/22 Pcp, Unknown PCP - General 03/15/22 Rodrigue Boyce MD [address] [place] [address], [address] [place] [address] Insurance Assigned Provider Internal Medicine 04/03/20 Megan Rosas MD [address] [place] [address], [address] [place] [address] [email or web address] Insurance Assigned Provider 11/22/20 08/21/22 documented as of this encounter Additional Source Comments The information contained in this document represents components of the legal health record. It is not the complete legal health record.[facility]
--- OUTSIDE RECORDS SUMMARY | 2025-04-10 13:38 | XMS_ITS | Encounter Summary ---
Author Organization [facility] Address [address] [place] [address] Care Team Providers Care Upholsterer Outside Name Role Phone Khadijah Neves MD Primary Care Provider Un available Yuniel Jurado MD Primary Care Provider Unav ailable Encounter Details Date Type Department Care Team Description 12/08/2016 Release of Information Medical Records [address] [place] [id number] Abstract, Provider Social History Tobacco Use Types [...] on filedocumented in this encounter Care Teams Upholsterer Outside Relationship Specialty Start Date End Date Khadijah Neves MD PCP - General 04/24/07 02/27/20 Yuniel Jurado MD PCP - General Family Practice 09/23/22 documented as of this encounter
--- OUTSIDE RECORDS SUMMARY | 2025-04-10 13:38 | XMS_ITS | Encounter Summary ---
Author Organization [facility] Address [address] [place] [address] Care Team Providers Care Lumber Chain Offbearer Name Role Phone Khadijah Neves MD Primary Care Provider Un available Yuniel Jurado MD Primary Care Provider Unav ailable Encounter Details Date Type Department Care Team Description 04/25/2019 Foreclosure Specialist Report Medical Records [address] [place] [id number] Riaz Pardo MD Social History Tobacco Use [...] on filedocumented in this encounter Care Teams Lumber Chain Offbearer Relationship Specialty Start Date End Date Khadijah Neves MD PCP - General 04/24/07 02/27/20 Yuniel Jurado MD PCP - General Family Practice 09/23/22 documented as of this encounter
--- OUTSIDE RECORDS SUMMARY | 2025-04-10 13:38 | XMS_ITS | Encounter Summary ---
Author Organization [facility] Address [address] [place] [address] Care Team Providers Care Guide Visitor Name Role Phone Khadijah Neves MD Primary Care Provider Un available Yuniel Jurado MD Primary Care Provider Unav ailable Encounter Details Date Type Department Care Team Description 10/18/2016 Transfer Records Medical Records [address] [place] [address] Abstract, Provider Social History Tobacco Use Types [...] on filedocumented in this encounter Care Teams Guide Visitor Relationship Specialty Start Date End Date Khadijah Neves MD PCP - General 04/24/07 02/27/20 Yuniel Jurado MD PCP - General Family Practice 09/23/22 documented as of this encounter
--- OUTSIDE RECORDS SUMMARY | 2025-04-10 13:38 | XMS_ITS | Encounter Summary ---
Author Organization [facility] Address [address] [facility] [address] [place] [address] Phone Care Team Providers Care Sales And Merchandising Representative Name Role Phone Francisco Mane CNP Primary Care Provider Rodrigue Boyce MD Unavailable [phone] Megan Rosas MD Unavailable [phone] Pcp, Unknown Primary Care Provider Unavailabl e Encounter Details Date Type Department Care Team (Late st Contact Info) Description 04/02/2021 Procedure Pass [facility] [address] [place] [id number] Social History Tobacco Use Types Packs/Day Years Used Date Smoking Tobacco: Some Days Cigarettes 1 27.6 Started: 04/15/1993; Last attempted to quit: 11/2020 Smokeless Tobacco: Never Comments:had quit in November b ut restarted February. Alcohol Use Standard Drinks/Week [...] on filedocumented in this encounter Care Teams Sales And Merchandising Representative Relationship Specialty Start Date End Date Francisco Mane CNP [address] [facility], [address] [place] [address] [email or web address] PCP - General Family Medicine 07/17/19 03/14/22 Pcp, Unknown PCP - General 03/15/22 Rodrigue Boyce MD [address] [place] [address], [address] [place] [address] [email or web address] Insurance Assigned Provider Internal Medicine 04/03/20 Megan Rosas MD [address] [place] [address], [address] [place] [address] [email or web address] Insurance Assigned Provider 11/22/20 08/21/22 documented as of this encounter Additional Source Comments The information contained in this document represents components of the legal health record. It is not the complete legal health record.[facility]
--- OUTSIDE RECORDS SUMMARY | 2025-04-10 13:38 | XMS_ITS | Encounter Summary ---
Author Organization [facility] Address [address] [place] [address] Care Team Providers Care Catalyst Recovery Operator Name Role Phone Khadijah Neves MD Primary Care Provider Un available Yuniel Jurado MD Primary Care Provider Unav ailable Encounter Details Date Type Department Care Team Description 09/22/2016 [facility] Medical Records [address] [place] [address] Rodolfo Cha MD Social History Tobacco Use [...] on filedocumented in this encounter Care Teams Catalyst Recovery Operator Relationship Specialty Start Date End Date Khadijah Neves MD PCP - General 04/24/07 02/27/20 Yuniel Jurado MD PCP - General Family Practice 09/23/22 documented as of this encounter
--- OUTSIDE RECORDS SUMMARY | 2025-04-10 13:38 | XMS_ITS | Encounter Summary ---
Author Organization [facility] Address [address] [place] [address] Care Team Providers Care Claim Examiner Name Role Phone Khadijah Neves MD Primary Care Provider Un available Yuniel Jurado MD Primary Care Provider Unav ailable Encounter Details Date Type Department Care Team Description 07/11/2018 [facility] Medical Records [address] [place] [address] Abstract, Provider Social History Tobacco Use Types [...] on filedocumented in this encounter Care Teams Claim Examiner Relationship Specialty Start Date End Date Khadijah Neves MD PCP - General 04/24/07 02/27/20 Yuniel Jurado MD PCP - General Family Practice 09/23/22 documented as of this encounter
--- OUTSIDE RECORDS SUMMARY | 2025-04-10 13:38 | XMS_ITS | Encounter Summary ---
Author Organization [facility] Address [address] [facility] [address] [place] [address] Phone Care Team Providers Care Scout Executive Name Role Phone Francisco Mane CNP Primary Care Provider Rodrigue Boyce MD Unavailable [phone] Megan Rosas MD Unavailable [phone] Pcp, Unknown Primary Care Provider Unavailabl e Encounter Details Date Type Department Care Team (Late st Contact Info) Description 02/27/2021 Procedure Pass [facility], [address] [address] Social History Tobacco Use Types Packs/Day Years [...] on filedocumented in this encounter Care Teams Scout Executive Relationship Specialty Start Date End Date Francisco Mane CNP [address] [facility], [address] [place], [place] [id number] PCP - General Family Medicine 07/17/19 03/14/22 Pcp, Unknown PCP - General 03/15/22 Rodrigue Boyce MD [address] [place] [address], [address] [place] [address] Insurance Assigned Provider Internal Medicine 04/03/20 Megan Rosas MD [address] [place] [address], [address] [place] [address] [email or web address] Insurance Assigned Provider 11/22/20 08/21/22 documented as of this encounter Additional Source Comments The information contained in this document represents components of the legal health record. It is not the complete legal health record.[facility]
--- OUTSIDE RECORDS SUMMARY | 2025-04-10 13:39 | XMS_ITS | Encounter Summary ---
Author Organization [facility] Address [address] [place] [address] Care Team Providers Care Cigar Making Machine Supervisor Name Role Phone Khadijah Neves MD Primary Care Provider Un available Yuniel Jurado MD Primary Care Provider Unav ailable Encounter Details Date Type Department Care Team Description 09/24/2016 [facility] Medical Records [address] [place] [address] Joana Lin Social History Tobacco Use Types [...] on filedocumented in this encounter Care Teams Cigar Making Machine Supervisor Relationship Specialty Start Date End Date Khadijah Neves MD PCP - General 04/24/07 02/27/20 Yuniel Jurado MD PCP - General Family Practice 09/23/22 documented as of this encounter
--- OUTSIDE RECORDS SUMMARY | 2025-04-10 13:39 | XMS_ITS | Encounter Summary ---
Author Organization [facility] Address [address] [place] [address] Care Team Providers Care Restaurant Maintenance Technician Name Role Phone Khadijah Neves MD Primary Care Provider Un available Yuniel Jurado MD Primary Care Provider Unav ailable Encounter Details Date Type Department Care Team Description 09/15/2016 Window Unit Air Conditioning Mechanic Report Medical Records [address] [place] [address] Reuben Seymour Social History Tobacco Use Types [...] on filedocumented in this encounter Care Teams Restaurant Maintenance Technician Relationship Specialty Start Date End Date Khadijah Neves MD PCP - General 04/24/07 02/27/20 Yuniel Jurado MD PCP - General Family Practice 09/23/22 documented as of this encounter
--- OUTSIDE RECORDS SUMMARY | 2025-04-10 13:40 | XMS_ITS | Encounter Summary ---
Author Organization [facility] Address [address] [place] [address] Care Team Providers Care Quality Checker Name Role Phone Khadijah Neves MD Primary Care Provider Un available Yuniel Jurado MD Primary Care Provider Unav ailable Encounter Details Date Type Department Care Team Description 08/23/2014 EXECUTIVE RELATIONS SPECIALIST/[place] Report Medical Records [address] [place] [address] Abstract, Provider Social History Tobacco Use Types [...] filedocumented in this encounter Care Teams Quality Checker Relationship Specialty Start Date End Date Khadijah Neves MD PCP - General 04/24/07 02/27/20 Yuniel Jurado MD PCP - General Family Practice 09/23/22 documented as of this encounter
--- OUTSIDE RECORDS SUMMARY | 2025-04-10 13:40 | XMS_ITS | Encounter Summary ---
Author Organization [facility] Address [address] [place] [address] Care Team Providers Care Subcontracts Manager Name Role Phone Khadijah Neves MD Primary Care Provider Un available Yuniel Jurado MD Primary Care Provider Unav ailable Encounter Details Date Type Department Care Team Description 10/03/2016 SNF discharge summary Medical Records [address] [place] [address] Social History Tobacco Use Types Packs/Day Years [...] on filedocumented in this encounter Care Teams Subcontracts Manager Relationship Specialty Start Date End Date Khadijah Neves MD PCP - General 04/24/07 02/27/20 Yuniel Jurado MD PCP - General Family Practice 09/23/22 documented as of this encounter
--- OUTSIDE RECORDS SUMMARY | 2025-04-10 13:40 | XMS_ITS | Clinical Summary ---
Author Organization [facility] Address [address] [address] Phone Care Team Providers Care Information Systems Security Manager Name Role Phone Rodrigue Boyce MD Unavailable [phone] Pcp, Unknown Primary Care Provider Unavailabl e Allergies Active Allergy Reactions Criticality Noted Date Comments Alendronate Hives 09/03/2021 Medications ipratropium-albut Clayton (DUONEB) 0.5-3 mg (2.5 mg base)/3 mL nebulizer solutionIndicatio ns:Pulmonary emphysema, unspecified emphysema type INHALE THE CONTENTS OF 1 VIAL VIA NEBULIZER EVERY 6 HOURS NEEDED FOR SHORTNESS OF BREATH/DYSPNEA 360 mL 1 0 Active tiZANidine (ZANAFLEX) 4 MG tablet TAKE 1 TABLET BY MOUTH TWICE A DAY NEEDED 180 tablet 1 Active VENTOLIN HFA 90 mcg/actuation inhalerIndication s:COPD exacerbation INHALE 2 PUFFS INTO LUNGS EVERY 4 HOURS NEEDED FOR WHEEZING 90 g 3 1 Active cholecalciferol (VITAMIN D3) 2,000 unit capsule 2 Active BREO ELLIPTA 200-25 mcg/dose inhaler 1 Active oxyCODONE 5 MG immediate release tablet 2 Active SENEXON-S 8.6-50 mg 1 Active traZODone (DESYREL) 50 MG tabletIndications :Anxiety disorder due to medical condition Take 1 tablet (50 mg total) by mouth nightly at bedtime. 2 Active acyclovir (ZOVIRAX) 400 MG tabletIndications :Herpesviral vesicular dermatitis Take 1 tablet (400 mg total) by mouth 5 (five) times a day. 30 tablet 2 Active lidocaine (LIDODERM) 5 %Indications:Kyph oscoliosis deformity of spine,Lumbar degenerative disc disease Place 1 patch onto the skin daily. Remove & Discard patch within 12 hours or as directed by 30 patch 2 Active gabapentin (NEURONTIN) 300 MG capsuleIndication s:Lumbar degenerative disc disease,Kyphoscol iosis deformity of spine Take 2 capsules (600 mg total) by mouth 4 (four) times a day. 240 capsule 2 Active abaloparatide (TYMLOS) 80 mcg (3,120 mcg/1.56 mL) PnIjIndications:A ge-related osteoporosis without current pathological fracture Inject 80 mcg under the skin daily. 1.56 mL 11 2 Active calcium carbonate (OS-LIZZIE) 1,250 mg (500 mg elemental) tabletIndications :Age-related osteoporosis without current pathological fracture Take 1 tablet (1,250 mg total) by mouth daily. 90 tablet 3 2 Active traZODone (DESYREL) 100 MG tabletIndications :Anxiety disorder due to medical condition TAKE 1 TABLET (100 MG TOTAL) BY MOUTH NIGHTLY AT BEDTIME. 90 tablet 1 2 Active oxybutynin (DITROPAN) 5 MG tablet TAKE 1 TABLET BY MOUTH THREE TIMES A DAY 270 tablet 1 2 Active lisinopril (PRINIVIL,ZESTRIL ) 10 MG tabletIndications :Benign essential hypertension TAKE 1 TABLET BY MOUTH EVERY DAY 90 tablet 2 Active citalopram (CELEXA) 20 MG tabletIndications :Anxiety and depression TAKE 1 TABLET BY MOUTH EVERY DAY 90 tablet 1 2 Active meloxicam (MOBIC) 15 MG tabletIndications :Lumbar degenerative disc disease TAKE 1 TABLET (15 MG TOTAL) BY MOUTH DAILY. 30 tablet 2 Active SPIRIVA RESPIMAT 2.5 mcg/actuation mist for inhalationIndicat ions:Pulmonary emphysema, unspecified emphysema type INHALE 2 PUFFS BY MOUTH INTO THE LUNGS DAILY 4 g 5 3 Active Active Problems Problem Noted Date Diagnosed Date Need for prophylactic vaccin ation and inoculation against influenza 05/21/2021 Urge incontinence of urine 04/03/2020 Anxiety disorder due to medical condition 2019 Lumbar degenerative disc disease 10/22/2019 Assessment & Plan (10/22/2019 10:37 PM EDT): She has an exacerbation of her lumbar degenerative disc disease. I recommend she continue using a heating pad. She may benefit from a short course of an oral steroid. Ultimately she will need some more definitive management of her chronic back pain and she has a referral in from her PCP to see [facility] pain clinic. Anxiety and depression 07/17/2019 Chronic, continuous use of opioids 07/17/2019 Overview (07/17/2019): UDS sent, Masspat not found, waiting for old records to be sent before prescribing Benign essential hypertension 07/17/2019 Overview (07/17/2019): cont lisinopril, will check labs Ascending aorta dilation 03/15/2019 COPD with emphysema 03/15/2019 Overview (07/17/2019): CT 02/2019 Assessment & Plan (12/30/2020 3:18 PM EDT): Encouraged to continued smoking cessation. Continue with the Stiolto. Assessment & Plan (10/09/2020 5:03 PM EST): Patient with significant COPD with air trapping noted on PFTs. Will try Stiolto respimat, sample given. Rx of spiriva sent. Assessment & Plan (05/06/2020 12:14 PM EDT): Diagnosed on CT. Will check full PFTs and alpha-1 antitrypsin. Start Incruse. Would likely benefit from pulmonary rehab when that is available again. Sternal fracture 03/15/2019 Overview (07/17/2019): Questionable pathologic fracture-bone scan ordered Chronic back pain greater than 3 months duration 04/15/2015 Kyphoscoliosis deformity of spine 11/22/2014 Overactive bladder 12/25/2013 Osteoporosis 09/14/2011 Assessment & Plan (10/19/2021 4:03 PM EST): Is a patient with osteoporosis since 2009. She has multiple fractures including vertebral, hip fractures. She has advanced osteoporosis and risk factors include age, menopause, decrease calcium intake and tobacco use. Currently vitamin D levels in the reference range but she is not getting enough calcium in her diet and she really needs to start taking calcium at least 600 mg daily with food. At this point I am prescribing Tymlos which is the preferred agent by her healthcare carrier. This hopefully will increase her bone density and after 2 years use she could potentially move on to use Prolia to prevent bone breakdown and also increased bone mineral density. Assessment & Plan (07/29/2021 4:12 PM EST): This is a patient with known osteoporosis since . She does not recall how she was treated in the initial stages she believes that she just received calcium possibly vitamin D. By 2014 she received Boniva maybe for 3-4 years but when she transferred over to [facility] this medication did not follow through. She has not been taking any antiresorptive medications. Her most recent DXA scan was done 07/23/2021 showing advanced osteoporosis. Her risk factors include age, menopause, decrease calcium intake possibly vitamin D deficiency and tobacco use. She has had over 6 inches in height decrease in stature and has had multiple fractures. She only recently started taking vitamin D supplements and we do not know the dose. She does not take calcium supplements. At this point I will do work-up for secondary etiologies of osteoporosis. In the meantime I asked her to continue taking vitamin D supplementation and she needs to take at least another 600 mg of calcium in her diet per day. If she does not want to increase the calcium in her diet she needs to take calcium supplements 600 mg with food. I did not discuss antiresorptive medications for follow-up because I would like to do secondary work-up first and based on that I can recommend medications for her and I will do this on the follow-up visit within 2 months time. Smoking 09/14/2011 Assessment & Plan (12/30/2020 3:19 PM EDT): Patient qualifies for low-dose lung cancer screening CAT scans. However she is getting yearly can regular CAT scans following her aortic aneurysm. I have reviewed those myself and she does have small nodules that can be followed yearly. I have asked her to inform me if those are not being done anymore and then will start her on low-dose CTs. Assessment & Plan (10/09/2020 5:03 PM EST): Recommended smoking cessation. Will discuss low dose CT lung screening at our next visit. Assessment & Plan (05/06/2020 12:14 PM EDT): Recommend smoking cessation. Would qualify for lung cancer screening. Vertebral compression fracture 08/19/2011 Carpal tunnel syndrome 05/30/2007 Pure hypercholesterolemia 05/30/2007 Immunizations Immunization Administration Dates Next Due COVID-19 (Pre-06/06) Pfizer Vaccine, mRNA, PF 05/27/2021,11/22/2020,11/01/2020 Influenza High-Dose Quadriva lent Preservative Free IM 05/21/2021,07/03/2020 Influenza High-Dose Trivalen t Preservative Free IM 07/17/2019,2018 Pneumococcal conjugate PCV13 2018 Pneumococcal polysaccharide PPSV23 07/17/2019 Td, unspecified formulation 08/15/2006 Family History * Patient is adopted Medical History Relation Comments Hyperlipidemia Mother Hyperlipidemia Sister Relation Status Comments Father Other Mother Other Sister Alive Social History Tobacco Use Types Packs/Day Years Used Date Smoking Tobacco: Some Days Cigarettes 0.5 27.6 Started: 04/15/1993; Last attempted to quit: 11/2020 Smokeless Tobacco: Never Comments:had quit in November b ut restarted February. Alcohol Use Standard Drinks/Week Comments Not Currently 2 (1 standard drink = 0.6 oz pur e alcohol) Education Answer Date Recorded Are you interested in more education? Not on ángela e 12/10/2022 Are you concerned about learning? Not on file 12/10/2022 No 12/10/2022 No 12/10/2022 Digital Access Answer Date Recorded No 01/08/2023 No 01/08/2023 No 01/08/2023 Reliable internet access at home? Not on file 01/08/2023 Device with a working camera? Not on file Comments Unknown Sex and Gender Information Value Date Recorded Sex Assigned at Female 10/25/2020 12:47 AM EST Legal Sex Female 2:51 PM EDT Gender Identity Female 10/25/2020 12:47 AM EST Sexual Orientation Not on file Occupation Industry Job Start Date Job End Date disability Not on file Not on file Not on file Last Filed Vital Signs Vital Sign Reading Time Taken Comments Blood Pressure 114/78 10/19/2021 3:42 PM EST Pulse 90 10/19/2021 3:42 PM EST Temperature 36.9 C (98.5 F) 10/19/2021 3:42 PM EST Respiratory Rate 16 10/19/2021 3:42 PM EST Oxygen Saturation 95% 10/19/2021 3:42 PM EST Inhaled Oxygen Concentration - - Weight 43.1 kg (95 lb) 10/19/2021 3:42 PM EST Height 152.9 cm (5' 0.2 ) 10/19/2021 3:42 PM EST Body Mass Index 18.43 10/19/2021 3:42 PM EST Plan of Treatment Health Maintenance Due Date Last Done Comments BLOOD PRESSURE 1952 SMOKING Hx and SMOKELESS TOBACCO SCREENING 1965 COLOGUARD 1997 COLONOSCOPY 1997 COLORECTAL CANCER SCREENING 1997 FIT TEST 1997 FOBT 1997 SIGMOIDOSCOPY 1997 VIRTUAL COLONOSCOPY 1997 ZOSTER VACCINES (1 of 2) 2002 RSV VACCINE (1 - Risk 60-74 years 1-dose series) 2012 MAMMOGRAM 12/04/2015 12/03/2013 Adult Td,Tdap Booster 08/15/2016 08/15/2006 DEPRESSION SCREENING 07/17/2020 07/17/2019 POTASSIUM LEVEL 09/03/2022 09/03/2021, 03/30/2021 CREATININE LEVEL 09/07/2022 09/07/2021, , 03/30/2021 COVID-19 VACCINE ( season) 2024 05/27/2021, 11/22/2020, 11/01/2020 LIPID PANEL 02/16/2027 02/16/2022, 07/0 12/2021, 09/03/2021, Additional history exists PNEUMOCOCCAL VACCINES (50+ years) Completed 07/17/2019, 2018 OSTEOPOROSIS SCREENING INITIAL (ONE-TIME) Completed 07/22/2021, 01/09/2015 HEPATITIS C SCREENING Completed 09/03/2021, 022 HEPATITIS A VACCINES Aged Out No long er eligible based on patient's age to complete this topic HIB VACCINES Aged Out No longer eligi ble based on patient's age to complete this topic MENINGOCOCCAL VACCINES (ACWY) Aged Out No longer eligible based on patient's age to complete this topic MENINGOCOCCAL VACCINES (B) Aged Out N o longer eligible based on patient's age to complete this topic Medical Devices Implanted Type Area Gas Pit Worker Device Identifier Shelf Expiration Date Model / Serial / Lot Kit Cement Bone Kyphon Xpede Polymethylmethacrylate Mixer - [id number] Implanted:Qty: 1 on 04/02/2021 by Alec Thomas MD at [facility] Bone Cement N/A: Spine Lumbar [employer] 01/13/2024 [id number] / [id number] Procedures Procedure Name Priority Date/Time Associated Diagnosis Comments CREATININE, 24 HR URINE Routine 09/07/2021 10:54 AM EST Age-related osteoporosis without current pathological fracture LIPID PANEL Routine 09/03/2021 10:39 AM EST Screening, lipid HEPATITIS C ANTIBODY, QUALITATIVE Routine 09/03/2021 10:39 AM EST Need for hepatitis C screening test COMPREHENSIVE METABOLIC PANEL Routine 09/03/2021 10:39 AM EST Hyponatremia BD DXA AXIAL (SPINE) WITH HIP Routine 07/22/2021 3:36 PM EST Age-related osteoporosis without current pathological fracture HM MAMMOGRAPHY Routine 12/03/2013 from Last 3 Months or Most Recently Relevant to Health Maintenance Results * Creatinine, 24 hr urine (09/07/2021 10:54 AM EST) URINE CREATININE 94 mg/dL [facility] CREATININE OUTPUT 705 600 - 1,800 mg/total output [facility] Urine (Urine) 09/07/2021 10: 54 AM EST 09/07/2021 10:56 AM EST us Rodrigue Swansonasio DO URINE ORDERABLES Final Result [address] [address] * (ABNORMAL) Comprehensive metabolic panel (09/03/2021 10:39 AM EST) SODIUM 136 133 - 146 mmol/L [facility] POTASSIUM 4.0 3.3 - 5.1 mmol/L [facility] CHLORIDE 99 96 - 108 mmol/L [facility] CO2 24 21 - 35 mmol/L [facility] BUN 12 6 - 19 mg/dL [facility] CREATININE 0.70 0.5 - 1.5 mg/dL [facility] GLUCOSE 100(H) 70 - 99 mg/dL [facility] ALBUMIN 4.8 3.9 - 4.8 g/dL [facility] TOTAL PROTEIN 7.3 6.5 - 8.0 g/dL [facility] CALCIUM 9.8 8.4 - 10.3 mg/dL [facility] ALKALINE PHOSPHATASE 119(H) 39 - 117 U/L [facility] TOTAL BILIRUBIN 0.4 0.0 - 1.2 mg/dL [facility] AST 17 0 - 37 U/L [facility] ALT 10 0 - 40 U/L [facility] GLOBULIN 2.5 1 - 4.8 g/dL [facility] EGFR 94 >59 mL/min/1.7 3m2 [facility] Comment:Estimated glomerular filtration rate calculated using the CKD-EPI refit equation. ANION GAP 17 10 - 20 mmol/L [facility] Blood 09/03/2021 10:3 9 AM EST 09/03/2021 10:48 AM EST us Francisco Mane [facility] BLOOD ORDERABLES F inal Result [address] [address] * Hepatitis C antibody, qualitative (09/03/2021 10:39 AM EST) HCV NON-REACTIV E NON-REACTI VE [facility] Blood 09/03/2021 10:3 9 AM EST 09/03/2021 10:48 AM EST Francisco Mane [facility] BLOOD ORDERABLES F inal Result Performing Organization Address [facility]/ZIP Co de Phone Number [address] [address] * (ABNORMAL) Lipid panel (09/03/2021 10:39 AM EST) HDL 67 mg/dL [facility] Comment: Interpretation <40 mg/dL: Low HDL cholesterol (major risk factor for CHD) Greater than or equal to 60 mg/dL: High HDL cholesterol ( negative risk factor for CHD) HDL - cholesterol is affected by a number of factors, e.g. smoking, excerise, hormones, sex and age. CHOLESTEROL 301(H) 0 - 240 mg/dL [facility] TRIGLYCERIDES 105 30 - 160 mg/dL [facility] LDL 213(H) 50 - 129 mg/dL [facility] Comment: LDL levels in terms of risk for coronary heart disease: <100 mg/dL: Optimal 100-129 mg/dL: Near or above optimal 130-159 mg/dL: Borderline high 160-189 mg/dL: High >190 mg/dL: Very High CARDIAC RISK RATIO 4.5(H) 3.3 - 4.4 C [facility] Blood 09/03/2021 10:3 9 AM EST 09/03/2021 10:48 AM EST Francisco Mane [facility] BLOOD ORDERABLES F inal Result Performing Organization Address City/[facility]/ZIP Co de Phone Number [address] [address] * BD DXA AXIAL (SPINE) WITH HIP (07/22/2021 3:36 PM EST) Anatomical Region Laterality Modality Bone Density Bone Density 07/22/2021 3:52 PM EST Impressions 07/23/2021 9:17 AM EST Osteoporosis. Narrative 07/23/2021 9:17 AM EST This is a 71-year-old postmenopausal white female with an undisclosed perceived height loss. No indication of family history. She has had prior right hip surgery. She is not on replacement therapy and has not been in the past. This a baseline study. L1 and L2 excluded in the lumbar evaluation in the lumbar evaluation is overall limited due to scoliosis convex left. Evaluation of the lumbar spine and left hip was performed and appears to be technically adequate. Lumbar evaluation is limited as above. Total bone mineral density in the L3-L4 vertebral bodies was calculated at 0.462 gm/cm2 with a T score of -5.8. This falls within the WHO classification of osteoporosis. Patient's Z score is - 3.7. Total bone mineral density in the left proximal femur was calculated at 0.4-6 gm/cm2 with a T-score of -4.2 falling within the WHO classification of osteoporosis. Patient's Z score is -2.8. Bone mineral density in the left femoral neck was calculated at 0.332 gm/cm2 with a T-score of -4.7 falling within the WHO classification of osteoporosis. Patient's Z score is -2.9. Procedure Note Larry Dumont MD - 07/23/2021 This is a 71-year-old postmenopausal white female with an undisclosedperceived height loss. No indication of family history. She has had priorright hip surgery. She is not on replacement therapy and has not been inthe past. This a baseline study. L1 and L2 excluded in the lumbarevaluation in the lumbar evaluation is overall limited due to scoliosisconvex left. Evaluation of the lumbar spine and left hip was performed and appears bella technically adequate. Lumbar evaluation is limited as above. Total bone mineral density in the L3-L4 vertebral bodies was calculated at0.462 gm/cm2 with a T score of -5.8. This falls within the WHOclassification of osteoporosis. Patient's Z score is -3.7. Total bone mineral density in the left proximal femur was calculated at0.4-6 gm/cm2 with a T-score of -4.2 falling within the WHO classificationof osteoporosis. Patient's Z score is -2.8. Bone mineral density in theleft femoral neck was calculated at 0.332 gm/cm2 with a T-score of -4.7falling within the WHO classification of osteoporosis. Patient's Z scoreis -2.9. IMPRESSION: Osteoporosis. Francisco Mane [facility] IMG BD BONE DENSITY DE XA Final Result * MAMMOGRAPHY FOR RESULT ENTRY ONLY (12/03/2013) Mammogram birads 1 negative Historical Provider HEALTH MAINTENANCE Final Result from Last 3 Months or Most Recently Relevant to Health Maintenance Insurance MEDICARE PART A & B [facility] [employer] PPO MEDICARE REPLACEMENT MEDICARE PART A & [facility] RE[facility] MEDICARE PART A & B [place] [facility] [employer] PPO MEDICARE REPLACEMENT MEDICARE PART A & [place] & [facility] [employer] [facility]PO MEDICARE REPLACEMENT MEDICARE PART A & B [facility] [employer] O MEDICARE REPLACEMENT MEDICARE PART A & B [facility] [employer] PPO MEDICARE REPLACEMENT Care Teams Information Systems Security Manager Relationship Specialty Start Date End Date Pcp, Unknown PCP - General 03/15/22 Rodrigue Boyce MD [address] [place] [address], [address] [place] [address] [email or web address] Insurance Assigned Provider Internal Medicine 04/03/20 Additional Source Comments The information contained in this document represents components of the legal health record. It is not the complete legal health record.[facility]
--- OUTSIDE RECORDS SUMMARY | 2025-04-10 13:40 | XMS_ITS | Encounter Summary ---
Author Organization [facility] Address [address] [place] [address] Care Team Providers Care Crayon Sawyer Name Role Phone Khadijah Neves MD Primary Care Provider Un available Yuniel Jurado MD Primary Care Provider Unav ailable Encounter Details Date Type Department Care Team Description 01/27/2017 Orders Only Medicine/Pediatrics - [address] [id number] Khadijah Neves MD Smoker; Unexplained weight loss; [...] Cough documented in this encounter Care Teams Crayon Sawyer Relationship Specialty Start Date End Date Khadijah Nvees MD PCP - General 04/24/07 02/27/20 Yuniel Jurado MD PCP - General Family Practice 09/23/22 documented as of this encounter
--- OUTSIDE RECORDS SUMMARY | 2025-04-10 13:40 | XMS_ITS | Encounter Summary ---
Author Organization [facility] Address [address] [place] [address] Care Team Providers Care [employer] Name Role Phone Khadijah Neves MD Primary Care Provider Un available Yuniel Jurado MD Primary Care Provider Unav ailable Encounter Details Date Type Department Care Team Description 10/01/2016 [facility] Medical Records [address] [place] [id number] Abstract, Provider Social History Tobacco Use Types [...] on filedocumented in this encounter Care Teams [employer] Relationship Specialty Start Date End Date Khadijah Neves MD PCP - General 04/24/07 02/27/20 Yuniel Jurado MD PCP - General Family Practice 09/23/22 documented as of this encounter
--- OUTSIDE RECORDS SUMMARY | 2025-04-10 13:40 | XMS_ITS | Encounter Summary ---
Author Organization [facility] Address [address] [place] [address] Care Team Providers Care Monitoring Coordinator Name Role Phone Khadijah Neves MD Primary Care Provider Un available Yuniel Jurado MD Primary Care Provider Unav ailable Reason for Referral * Radiology Services - Authorized/Booked Specialty Diagnoses / Procedures Referred By Contac t Referred To Contact Radiology Diagnoses Vertebral compression fracture, sequela Procedures MRI OF THORACIC SPIN NO CONTRAST Lex Ocampo PA-C Mri/[address] [address] Referral ID Status Reason Start Date Expiration Date V isits Requested Visits Authorized NO AUTH REQUIRED Authorized/ Booked 08/26/2014 08/26/2015 1 1 * (Routine) - Authorized/Booked Specialty Diagnoses / Procedures Referred By Contact Referred To Contact ORTHOPEDICS / Orthopedic Procedures REFERRAL TO ORTHOPEDICS Lex Ocampo PA-C [address] [place] [id number] External Orthopedics Referral ID Status Reason Start Date Expiration Date V isits Requested Visits Authorized SEE REVIEW 08/27/14 Authorized/ Booked 08/19/2014 11/25/2014 1 1 Encounter Details Date Type Department Care Team Description 08/19/2014 Orders Only Medicine/Pediatrics - [address] [place] [address] Lex Ocampo PA-C Vertebral compression fracture, sequela (Primary Dx); Scoliosis Social History Tobacco Use Types Packs/Day Years Used Date Smoking Tobacco: Every Day Cigarettes 0.2 Alcohol Use Standard Drinks/Week Comments Yes 46.7 (1 standard dri nk = 0.6 oz pure alcohol) 3-4 cocktails of vodka and juice per night. Sex Assigned at Date Recorded Not on file documented as of this encounter Plan of Treatment Not on file documented as of this encounter Results * MRI OF THORACIC SPIN NO CONTRAST (08/26/2014 3:01 PM EST) 08/26/2014 5:17 PM EST Narrative [facility] - 08/26/2014 5:50 PM EST MRI of the thoracic spine without intravenous contrast. History back pain. Study is extremely limited due to motion artifact. The patient was not able to tolerate a complete exam. STIR sagittal images were not obtained. All the images are limited due to motion artifact. There is marked dextroscoliosis in the mid thoracic segment. There is marked compression fracture of the T. 11 without evidence of bone marrow edema. There is no evidence of spinal stenosis or spinal cord compression at any level. There is abnormal decreased T1 signal within the T5. There is no obvious perispinal soft tissue thickening. There is no spinal stenosis or spinal cord compression. The patient is unclear. Possibility of neoplastic process is not excluded. Degenerative changes are noted in the facet joints in the mid thoracic segment more prominent on the left with osteophytic narrowing of the left T5, T6-T7 and T8 neural foramina. There is no visible focal signal abnormalities within the spinal cord which appears to be deviated to the left. Conclusions: Limited examination due to motion artifact and severe scoliosis. Marked compression deformity of the T11 without evidence of bone marrow edema suggestive of chronic nature. Decreased T1 signal within the T5. Stability of the neoplastic process is not excluded. Degenerative changes in the facet joints on the left in the mid thoracic segment with narrowing of the neural foramina. No visible focal signal abnormalities within the cord. Bone scan may be considered for further assessment. Procedure Note Tania Gomez MD - 08/26/2014 MRI of the thoracic spine without intravenous contrast. History back pain. Study is extremely limited due to motion artifact. The patient was notable to tolerate a complete exam. STIR sagittal images were not obtained. All the images arelimited due to motion artifact. There is marked dextroscoliosis in the mid thoracic segment. There ismarked compression fracture of the T. 11 without evidence of bone marrow edema. There is noevidence of spinal stenosis or spinal cord compression at any level. There is abnormaldecreased T1 signal within the T5. There is no obvious perispinal soft tissue thickening. There is nospinal stenosis or spinal cord compression. The patient is unclear. Possibility of neoplasticprocess is not excluded. Degenerative changes are noted in the facet joints in the midthoracic segment more prominent on the left with osteophytic narrowing of the left T5, T6-T7 andT8 neural foramina. There is no visible focal signal abnormalities within the spinal cordwhich appears to be deviated to the left. Conclusions: Limited examination due to motion artifact and severescoliosis. Marked compression deformity of the T11 without evidence of bone marrow edemasuggestive of chronic nature. Decreased T1 signal within the T5. Stability of the neoplasticprocess is not excluded. Degenerative changes in the facet joints on the left in the mid thoracicsegment with narrowing of the neural foramina. No visible focal signal abnormalitieswithin the cord. Bone scan may be considered for further assessment. Lex Ocampo PA-C MRI [facility] documented in this encounter Visit Diagnoses Diagnosis Vertebral compression fracture, sequela- Primary Scoliosis Scoliosis (and kyphoscoliosis), idiopathic Vertebral compression fracture, sequela documented in this encounter Care Teams Monitoring Coordinator Relationship Specialty Start Date End Date Khadijah Neves MD PCP - General 04/24/07 02/27/20 Yuniel Jurado MD PCP - General Family Practice 09/23/22 documented as of this encounter
--- OUTSIDE RECORDS SUMMARY | 2025-04-10 13:40 | XMS_ITS | Encounter Summary ---
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
--- OUTSIDE RECORDS SUMMARY | 2025-04-10 13:40 | XMS_ITS | Encounter Summary ---
Author Organization [facility] Address [address] [place] [address] Care Team Providers Care Business Relationship Manager Name Role Phone Khadijah Neves MD Primary Care Provider Un available Yuniel Jurado MD Primary Care Provider Unav ailable Encounter Details Date Type Department Care Team Description 03/15/2019 PNO Controlled Substance Contract Medical Records [address] [place] [address] Abstract, Provider Social History Tobacco Use Types [...] on filedocumented in this encounter Care Teams Business Relationship Manager Relationship Specialty Start Date End Date Khadijah Neves MD PCP - General 04/24/07 02/27/20 Yuniel Jurado MD PCP - General Family Practice 09/23/22 documented as of this encounter
== END 2025-04-10 13:08 | disposition home or self-care (01) ==
LOC: HO.HOSX 13:07
PROVIDERS: Visit Provider Physician Assistant
DX: S32.599D Other specified fracture of unspecified pubis, subsequent encounter for fracture with routine healing (principal); X58.XXXD Exposure to other specified factors, subsequent encounter
CPT/HCPCS: 72170; 99212

== ENCOUNTER → 2025-04-10 13:29 | Outpatient (BNV) | payer MEDICARE, MEDICAID, SELFPAY | PROVIDERS: Visit Provider Radiology Diagnostic Radiology | DX: S32.511D Fracture of superior rim of right pubis, subsequent encounter for fracture with routine healing (principal) | CPT/HCPCS: 72170 ==

== ENCOUNTER 2025-04-10 13:30 | Outpatient (AMB) | payer MEDICARE, MEDICAID, SELFPAY ==
--- NOTE | 2025-04-10 14:05 | A.OFFVIS_ITS ---
Vital Signs 04/10/25 14:10 Height 5 ft Weight 107 lb BMI 20.9 Intake Visit Reasons: OV - Fracture of pubic ramus Intake Note: Follow-up right pubic rami fracture patient has no concerns today. Allergies alendronate sodium (From Fosamax) Allergy (Mild, Verified 02/13/25 13:51) Hives Medication List - Last Reconciled 04/10/25 by Jerome Vargas PA-C acyclovir 400 mg PO DAILY albuterol sulfate 90 mcg/actuation (Ventolin HFA) 2 puffs inhalation Q4-6H PRN 30 days alendronate 70 mg PO QWEEK 28 days celecoxib (Celebrex) 200 mg PO BID PRN 90 days cetirizine 10 mg PO DAILY PRN 90 days cholecalciferol (vitamin D3) 50 mcg PO DAILY 90 days citalopram 30 mg (1.5 x 20 mg) PO DAILY 90 days diaper,brief,adult,disposable 4 times a day, As directed, 30 days diclofenac sodium 1% (Arthritis Pain (diclofenac)) 4 grams topical QID 30 days gabapentin 1-2 caps p.o. q.i.d. orally 4 times a day; 30 days lidocaine 5% 1 patch topical DAILY 30 days lisinopril 20 mg PO DAILY 90 days miscellaneous medical supply Motorized?scooter,?As directed, 999 days miscellaneous medical supply Wheelchair. As directed, 999 days nitrofurantoin monohyd/m-cryst 100 mg (Macrobid) 100 mg PO BID 7 days oxybutynin chloride 5 mg PO TID 30 days oxycodone-acetaminophen 5-325 mg (Percocet) 1 tab PO Q12H PRN 30 days trazodone 150 mg (1.5 x 100 mg) PO BEDTIME 30 days walker Lightweight walker daily?As directed, 999 days HPI HPI OV - Fracture of pubic ramus: Details: 74-year-old female returns to the office today for a follow-up pubic rami fracture. She is ambulating with a cane in the office today and denies pain. 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) Patient Tobacco Use Status: Current someday Tobacco user Tobacco use type: Cigarette Cigarette Packs Per Day: 0.5 Cigarettes Per Day: 10.0 e-Cigarette/Vaping Use: Never Used Second Hand Smoke Exposure: No service: No Current occupational status: retired and disabled Current occupational exposures/hazards: No Cognitive needs: No Hearing needs: No Vision needs: No Review of Systems Const All systems reviewed & are unremarkable except as noted in HPI and below Physical Exam Const General: cooperative and no acute distress Orientation/consciousness: patient oriented x3 Resp Effort & Inspection: normal respiratory effort and able to speak in complete sentences Cardio Peripheral pulses: Peripheral pulses 2+ throughout Neuro General: patient oriented x3 Extrem Other: Right hip is normal to inspection she is able to perform hip flexion and range of motion with mild discomfort. Neurovascularly intact. Results Reviewed Results Reviewed: X-rays of the right hip obtained in the office today and reviewed by me show a superior pubic rami fracture with minimal displacement and interval healing. Assessment & Plan Assessment & Plan (1) Fracture of pubic ramus: Code(s): S32.599A - Other specified fracture of unspecified pubis, initial encounter for closed fracture Category: Medical Plan: The patient will continue with activities as tolerated. She will continue to use an assistive device for balance and caution. If there is any concerns she can contact our office otherwise she will follow up as needed. Orders: Orders XR pelvis 1-2V Today M25.559 - Pain in unspecified hip Coding Level of Care Code Est Pt Level 3 (03389) Complex EM visit Add On G2211 Diagnoses Fracture of pubic ramus S32.599A
[2025-04-10 14:10] VITALS: BMI 20.9
== END 2025-04-10 14:35 | disposition home or self-care (01) ==
LOC: HO.HOS 13:30
PROVIDERS: Visit Provider Physician Assistant
DX: S32.599A Other specified fracture of unspecified pubis, initial encounter for closed fracture (principal)
CPT/HCPCS: 99213; G2211

== ENCOUNTER 2025-04-16 13:44 | Outpatient (AMB) | payer MEDICARE, SELFPAY ==
--- NOTE | 2025-04-16 13:47 | MHC.PC.OV ---
Vital Signs 04/16/25 13:48 Height 5 ft Weight 90 lb 4 oz BMI 17.6 BP 132/88 Blood Pressure Location Lt brachial Position Sitting Pulse 107 H Pulse Source Pulse Oximeter Pulse Oximetry (%) 95 Oxygen Delivery Method Room Air Intake Visit Reasons: MITALI DR Jurado Sales And Training Specialist Required: No Accompanied by: Self / Same As Patient Allergies alendronate sodium (From Fosamax) Allergy (Mild, Verified 04/16/25 14:12) Hives Medication List - Last Reconciled 04/16/25 by Ladan Morin PA-C acyclovir 400 mg PO DAILY albuterol sulfate 90 mcg/actuation (Ventolin HFA) 2 puffs inhalation Q4-6H PRN 30 days alendronate 70 mg PO QWEEK 28 days celecoxib (Celebrex) 200 mg PO BID PRN 90 days cetirizine 10 mg PO DAILY PRN 90 days cholecalciferol (vitamin D3) 50 mcg PO DAILY 90 days diaper,brief,adult,disposable 4 times a day, As directed, 30 days diclofenac sodium 1% (Arthritis Pain (diclofenac)) 4 grams topical QID 30 days gabapentin 1-2 caps p.o. q.i.d. orally 4 times a day; 30 days lidocaine 5% 1 patch topical DAILY 30 days lisinopril 20 mg PO DAILY 90 days miscellaneous medical supply Motorized?scooter,?As directed, 999 days miscellaneous medical supply Wheelchair. As directed, 999 days nitrofurantoin monohyd/m-cryst 100 mg (Macrobid) 100 mg PO BID 7 days oxybutynin chloride 5 mg PO TID 30 days oxycodone-acetaminophen 5-325 mg (Percocet) 1 tab PO Q12H PRN 30 days trazodone 150 mg (1.5 x 100 mg) PO BEDTIME 30 days walker Lightweight walker daily?As directed, 999 days Tobacco use date assessed: 04/16/25 Fall risk assessment: 1 Fall in past year Last assessed Fall Risk: 04/16/25 Dental Screening Dental Screen Date: 04/16/25 Did you have a dental visit in the last 12 months?: Yes Did you have a dental problem in the last 6 months where you did not have access to dental care?: No Was dental information given to patient?: Patient has dentist HPI MITALI DR Jurado HPI Details 74-year-old female with past medical history of osteoporosis, COPD, ascending aorta dilation, chronic back pain, anxiety and depression, elevated sugar levels, elevated LDL last seen 12/[address] Jurado coming in for transfer of care. In review of the notes, patient has been following with Orthopedics most recently seen 03/2025 for fracture of pubic ramus continue with activities as tolerated. Presenting with management of chronic conditions and smoking cessation. Recently recovered from pelvic fracture, leading to intermittent right ankle and foot swelling, especially with increased activity. Smokes rolled cigarettes, interested in quitting, previously tried Chantix. Experiences anxiety in public, prefers avoiding crowds; scoliosis affects balance and contributes to anxiety. History of COPD, uses albuterol infrequently, reports morning dyspnea and requesting pulmonology referral today. History of vertebral fractures, underwent vertebroplasty, chronic pain managed with medication, advised to see pain management. Prescribed alendronate for osteoporosis, she was advised to discontinue by her dentist due to jaw concerns. Aortic aneurysm Stable, requires monitoring. Since recovering from the fracture she has noticed significant improvement in mobility. [facility] Medical History Pure hypercholesterolemia Carpal tunnel syndrome Smoking Osteoporosis Overactive bladder Kyphoscoliosis deformity of spine Chronic back pain greater than 3 months duration Sternal fracture COPD with emphysema Ascending aorta dilation Surgical History History of kyphoplasty History of hip surgery Social History Household Members: Spouse Housing: House Are you a primary manager intensive care unit to a significant other at home: No Do you presently have visiting nurse or other home services: Yes (increment manager) Patient Tobacco Use Status: Current someday Tobacco user Tobacco use type: Cigarette Cigarette Packs Per Day: 0.5 Cigarettes Per Day: 10.0 e-Cigarette/Vaping Use: Never Used Second Hand Smoke Exposure: No service: No Current occupational status: retired and disabled Current occupational exposures/hazards: No Cognitive needs: No Hearing needs: No Vision needs: No Questionnaire PHQ-9 Over the last 2 weeks, how often have you been bothered by any of the following problems? 1. Little interest or pleasure in doing things: more than half the days 2. Feeling down, depressed, or hopeless: nearly every day 3. Trouble falling or staying asleep, or sleeping too much: nearly every day 4. Feeling tired or having little energy: nearly every day 5. Poor appetite or overeating: several days 6. Feeling bad about yourself - or that you are a failure or have let yourself or your family down: more than half the days 7. Trouble concentrating on things, such as reading the newspaper or watching television: more than half the days 8. Moving or speaking so slowly that other people could have noticed. Or the opposite - being so fidgety or restless that you have been moving around a lot more than usual: not at all 9. Thoughts that you would be better off or of hurting yourself in some way: not at all Total score: 16 76824 - PHQ-9 Billing: Yes Source: Developed by Drs. Reuben Martino, Cecilia Arizmendi, Antonio Perry and colleagues, with an educational chay from [employer]. Thrive Questionnaire Date Thrive assessed: 08/23/24 I am a: Patient What is your living situation today?: I have a steady place to live Within the past 12 months, did the food you bought not last and you didn't have the money to get more?: Sometimes True Within the past 12 months, did you worry whether your food would run out before you got money to buy more?: Sometimes True Do you have trouble paying for medicines?: No Do you have trouble getting transportation to medical appointments?: No Do you have trouble paying your heating and electricity bill?: No Do you have trouble taking care of your child, family member or friend?: No Do you have trouble with day-to-day activities such as bathing, preparing meals, shopping, managing finances, etc.?: Yes Are you currently unemployed and looking for a job?: No Are you interested in more education?: No Please select the resources that you would like help with: None THRIVE Score: 2 AUDIT C Alcohol Use Questionnaire (AUDIT-C) 1. How often do you have a drink containing alcohol?: 2-4 times a month 2. How many drinks containing alcohol do you have on a typical day when you are drinking?: 1 or 2 3. How often do you have six or more drinks on one occasion?: Never Total Score: 2 ALTHEA-7 AMB Questionnaire ALTHEA-7 Date ALTHEA - 7 assessed: 04/16/25 Source: Developed by Drs. Reuben Martino, Cecilia Arizmendi, Antonio Perry and colleagues, with an educational chay from [employer]. Review of Systems Const Denies body aches, Denies fatigue, Denies fever(s), Denies frequent falls and Denies weakness Eyes Reports no additional complaints and Denies change in vision ENT Denies dizziness, Denies facial pain and Denies nasal congestion Card Denies chest pain, Denies syncope, Denies irregular heart rhythm, Reports leg edema, Denies lightheadedness, Denies dyspnea and Reports dyspnea on exertion Resp Denies cough, Denies dyspnea and Reports dyspnea on exertion GI Denies abdominal pain, Reports constipation, Denies dyspepsia, Denies diarrhea, Denies nausea and Denies vomiting Musc Reports back pain and Denies myalgias Skin/Breast Reports system reviewed and no additional complaints, except as documented Neuro Denies dizziness, Denies syncope, Denies frequent falls and Denies weakness Psych Reports no additional complaints Endo Denies fatigue Physical exam (Primary Care) Vital Signs: Last Vital Signs Pulse 107 H 04/16/25 13:48 BP 132/88 04/16/25 13:48 Pulse Ox 95 04/16/25 13:48 Oxygen Delivery Method Room Air 04/16/25 13:48 BMI result Body Mass Index 17.6 Tobacco/Smoking Status: Tobacco use Status Tobacco use date assessed 04/16/25 04/16/25 13:58 Patient Tobacco Use Status Current someday Tobacco 04/16/25 13:58 Tobacco use type Cigarette 04/16/25 13:58 e-Cigarette/Vaping Use Never Used 04/16/25 13:58 PHQ-9: PHQ-9 Score PHQ-9: Total score 16 04/16/25 17:05 Thrive Assessment: Date of Thrive Assessment Date Thrive assessed 08/23/24 04/16/25 13:58 Const General: cooperative, healthy appearing, comfortable and no acute distress Orientation/consciousness: patient oriented x3 HENMT Head: Yes normocephalic Ears: hearing grossly normal bilaterally General nose exam: Normal external nose present Eyes General: appearance normal, both eyes and all related structures Conjunctivae: conjunctivae normal Neck Neck: Yes full ROM and Yes no lymphadenopathy Resp Effort & Inspection: normal respiratory effort Auscultation: clear to auscultation bilaterally, no crackles, no rales, no rhonchi and no wheezes Cardio Rate: regular rate Rhythm: regular rhythm Skin General skin exam: no rashes or lesions noted Neuro General: patient oriented x3 Gait exam (Neuro): Normal gait present Extrem General: Yes normal to inspection, Yes full ROM and No edema Psych Affect: normal affect Attitude: cooperative Insight: Good insight present (Psych) Judgement: Good judgement present (Psych) Coding Level of Care Code Est Pt Level 4 (28983) Diagnoses Anxiety and depression F41.9; F32.A Hypertension I10 Ascending aorta dilation I77.810 Elevated LDL cholesterol level E78.00 Elevated fasting glucose R73.01 Osteoporosis M81.0 Tobacco use disorder F17.200 COPD with emphysema J43.9 Chronic back pain M54.9; G89.29 Lumbago with sciatica, left side M54.42 Additional Codes PHQ-9 - 55099 - PHQ-9 Billing: Yes ([id number]) Assessment & Plan Assessment & Plan (1) Anxiety and depression: Code(s): F41.9 - Anxiety disorder, unspecified; F32.A - Depression, unspecified Category: Medical Plan: The patient experiences anxiety, particularly in public settings, and prefers to avoid crowded places. She has scoliosis, which affects her balance and contributes to her anxiety. No medication or counseling was desired at this time. (2) Hypertension: Code(s): I10 - Essential (primary) hypertension Category: Medical Plan: Continue on current blood pressure medication. Avoid salt intake and encourage healthy diet and regular exercise. (3) Ascending aorta dilation: Code(s): I77.810 - Thoracic aortic ectasia Category: Medical Plan: Plan for repeat imaging as it has not been done in several years and she is due for monitoring. (4) Elevated LDL cholesterol level: Code(s): E78.00 - Pure hypercholesterolemia, unspecified Category: Medical Plan: Avoid foods that are high in cholesterol such as red meat, fried foods, eggs and baked goods. Triglyceride goal of less than 150 and LDL goal of less than 100. Ordered for repeat blood work. (5) Elevated fasting glucose: Code(s): R73.01 - Impaired fasting glucose Category: Medical Plan: Decrease the amount of carbohydrates such as pasta, bread, rice, and potatoes and limit the amount of sweets. Although fruits are generally healthy they should be eaten in moderation as they are still high in sugar. ordered for repeat blood work. (6) Osteoporosis: Code(s): M81.0 - Age-related osteoporosis without current pathological fracture Category: Medical Plan: She is no longer taking Alendronate as advised by her dentist due to jaw concerns. I placed a referral for Endocrinology. She is to continue to increase dietary calcium to 1200mg per day and continue on Vitamin D supplementation (7) Tobacco use disorder: Code(s): F17.200 - Nicotine dependence, unspecified, uncomplicated Category: Medical Plan: Smoking cigarettes and the use of tobacco can be harmful. We discussed the importance of stopping and options to aid in smoking cessation. She would like to try Chantix which was prescribed today. (8) COPD with emphysema: Code(s): J43.9 - Emphysema, unspecified Category: Medical Plan: Strongly advised to stop smoking. Referral was placed to program review director at patient request today and she will continue on albuterol as needed (9) Chronic back pain: Code(s): M54.9 - Dorsalgia, unspecified; G89.29 - Other chronic pain Category: Medical Plan: Discussed with the patient that I will be speaking with Dr. Jurado in regards to her chronic pain medication management as he was previously working on a plan before she transferred care. At this time I did refill the pain medication and pain contract was completed in the office. I did also prescribe naloxone and send this to the pharmacy for emergency use. Referral was placed to pain management for further evaluation and treatment and discussed with the patient if she would like to continue her chronic narcotic prescription she needs to be seen by pain management and follow up in the office every 3 months. Patient agrees with the plan. (10) Lumbago with sciatica, left side: Code(s): M54.42 - Lumbago with sciatica, left side Category: Medical Plan: See above. Plan During the visit, we discussed the patient's chronic conditions, including COPD and back pain, and the importance of smoking cessation to reduce health risks. We explored options for managing anxiety and scoliosis-related balance issues. The patient was advised on the need for regular monitoring of her aortic aneurysm and osteoporosis. We also addressed her recent weight loss and the need for nutritional support. Follow-up appointments with pulmonology and pain management were recommended, and a prescription for Chantix was provided to aid smoking cessation. This note was constructed using voice recognition software. While every effort has been made to ensure accuracy and abrasive wheel molder, still areas may have been included sometimes these areas may affect the content or meeting of the given symptoms. Total time spent caring for the patient today was 30 minutes. This includes time spent before the visit reviewing the chart, time spent during the visit, and time spent after the visit and documentation. Patient was informed and verbally consented to the use of an ambient scribe for clinic note documentation during this visit. Orders: Orders Vitamin B12 and Folate 04/16/25 M81.0 - Age-related osteoporosis without current pathological fracture, Z13.21 - Encounter for screening for nutritional disorder CA Echo Limited 04/16/25 I77.810 - Thoracic aortic ectasia Lipid Panel 04/16/25 E78.00 - Pure hypercholesterolemia, unspecified Hemoglobin A1c 04/16/25 E11.65 - Type 2 diabetes mellitus with hyperglycemia, R73.01 - Impaired fasting glucose Comprehensive Met. Panel 04/16/25 R73.01 - Impaired fasting glucose, Z00.00 - Encounter for general adult medical examination without abnormal findings Complete Blood Count Auto Diff 04/16/25 M81.0 - Age-related osteoporosis without current pathological fracture, Z00.00 - Encounter for general adult medical examination without abnormal findings TSH reflex Free T4 04/16/25 M81.0 - Age-related osteoporosis without current pathological fracture, Z13.29 - Encounter for screening for other suspected endocrine disorder Vitamin D 25-OH Total 04/16/25 M81.0 - Age-related osteoporosis without current pathological fracture, Z13.21 - Encounter for screening for nutritional disorder Referrals Pulmonology Referral J43.9 - Emphysema, unspecified Pain Management Referral G89.29 - Other chronic pain, M54.42 - Lumbago with sciatica, left side, M54.9 - Dorsalgia, unspecified Endocrinology Referral M81.0 - Age-related osteoporosis without current pathological fracture Medications: New varenicline tartrate (Chantix Starting Month Box) PO PER PKG DIR 53 ea 0RF naloxone 4 mg/actuation (Narcan) spray 1 dose into ONE nostril; alternate nostrils w each dose until help arrives 4 mg intranasal Q3M PRN 2 ea 0RF opioid overdose Refilled lidocaine 5% leave on most painful area for up to 12 hrs 1 patch topical DAILY 30 ea 3RF 30 days G89.29 - Other chronic pain, M54.42 - Lumbago with sciatica, left side, M54.9 - Dorsalgia, unspecified oxycodone-acetaminophen 5-325 mg (Percocet) MassPat Verified. Partial Fill upon patient request. 1 tab PO Q12H PRN 60 tabs 0RF pain 30 days G89.29 - Other chronic pain, M54.9 - Dorsalgia, unspecified Discontinued celecoxib (Celebrex) Discontinued Reason: Patient no longer taking 200 mg PO BID 90 days PRN 90 caps 3RF pain nitrofurantoin monohyd/m-cryst 100 mg (Macrobid) must administer with a meal/food Discontinued Reason: Patient no longer taking 100 mg PO BID 7 days 14 caps 0RF
[2025-04-16 13:48] VITALS: BP 132/88; PULSE 107; O2SAT 95; BMI 17.6
--- OUTSIDE RECORDS SUMMARY | 2025-04-16 14:59 | XMS_ITS | Encounter Summary ---
Author Organization [facility] Address [address] [place] [address] Care Team Providers Care Second Floor Operator Name Role Phone Khadijah Neves MD Primary Care Provider Un available Yuniel Jurado MD Primary Care Provider Unav ailable Encounter Details Date Type Department Care Team Description 12/08/2016 Release of Information Medical Records [address] [place] [id number] Abstract, Provider Social History Tobacco Use Types [...] on filedocumented in this encounter Care Teams Second Floor Operator Relationship Specialty Start Date End Date Khadijah Neves MD PCP - General 04/24/07 02/27/20 Yuniel Jurado MD PCP - General Family Practice 09/23/22 documented as of this encounter
--- OUTSIDE RECORDS SUMMARY | 2025-04-16 14:59 | XMS_ITS | Clinical Summary ---
Author Organization [facility] [employer] [facility] Address [address] [place] [address] [address] [place] [address] Care Team Providers Care Fresh Meat Grader Name Role Phone PcpManny Unassigned Primary Care [...] 3 Active ergocalciferol (Vitamin D-2) 1.25 MG (79970 UT) capsule Take 1 capsule by mouth [...] Recently Relevant to Health Maintenance Insurance [place] [address] [place] [address] [place] [id number] [facility] [employer] P[place] STAND AD[place] Care Teams Fresh Meat Grader Relationship Specialty Start Date End Date Manny Schultz Unassigned PCP - General Family Medicine 12/13/22
--- OUTSIDE RECORDS SUMMARY | 2025-04-16 14:59 | XMS_ITS | Encounter Summary ---
Author Organization [facility] Address [address] [place] [address] Care Team Providers Care Water Meter Installer Name Role Phone Khadijah Neves MD Primary Care Provider Un available Yuniel Jurado MD Primary Care Provider Unav ailable Encounter Details Date Type Department Care Team Description 09/03/2015 Refill Medicine/Pediatrics - [address] [phone] Khadijah Neves MD Social History Tobacco Use [...] MG Tab [Khadijah Neves MD] Preferred pharmacy: [facility] - [place], [place] - [address] [facility] Comment: documented in this encounter Plan of Treatment Not on file documented as of this encounter Visit Diagnoses Not on filedocumented in this encounter Care Teams Water Meter Installer Relationship Specialty Start Date End Date Khadijah Neves MD PCP - General 04/24/07 02/27/20 Yuniel Jurado MD PCP - General Family Practice 09/23/22 documented as of this encounter
--- OUTSIDE RECORDS SUMMARY | 2025-04-16 14:59 | XMS_ITS | Encounter Summary ---
Author Organization [facility] Address [address] [place] [address] Care Team Providers Care Tax Examiner Name Role Phone Khadijah Neves MD Primary Care Provider Un available Yuniel Jurado MD Primary Care Provider Unav ailable Reason for Visit * Reason Onset Date Comments Environmental Programs Manager Feedback 11/29/2014 [facility] Physiatry Encounter Details Date Type Department Care Team Description 11/29/2014 Telephone Medicine/Pediatrics - [address] [phone] Khadijah Neves MD Environmental Programs Manager Feedback ([facility] Physiatry) Social History Tobacco Use Types Packs/Day Years Used Date Smoking Tobacco: Every Day Cigarettes 0.2 Alcohol Use Standard Drinks/Week Comments Yes 46.7 (1 standard dri nk = 0.6 oz pure alcohol) 3-4 cocktails of vodka and juice per night. Sex Assigned at Date Recorded Not on file documented as of this encounter Miscellaneous Notes * Telephone Encounter - Melody Joya - 12/11/2014 10:43 AM EDT SOPHIE mailed to patient for sensitive information Order faxed to [phone] * Telephone Encounter - Jacinta Josh - 11/29/2014 4:58 PM EDT Faxed the order and insurance [phone] No insurance referral required. Notification letter mailed office will contact pt to book appt. DX Back pain Message forwarded to fax labs, med list and Imaging and notes [phone] documented in this encounter Plan of Treatment Not on file documented as of this encounter Visit Diagnoses Not on filedocumented in this encounter Care Teams Tax Examiner Relationship Specialty Start Date End Date Khadijah Neves MD PCP - General 04/24/07 02/27/20 Yuniel Jurado MD PCP - General Family Practice 09/23/22 documented as of this encounter
--- OUTSIDE RECORDS SUMMARY | 2025-04-16 14:59 | XMS_ITS | Encounter Summary ---
Author Organization [facility] Address [address] [place] [address] Care Team Providers Care Emergency Dispatch Operator Name Role Phone Khadijah Neves MD Primary Care Provider Un available Yuniel Jurado MD Primary Care Provider Unav ailable Encounter Details Date Type Department Care Team Description 10/24/2019 Field Operations Manager Report Medical Records [address] [place] [id number] Riaz Pardo MD Social History Tobacco Use [...] on filedocumented in this encounter Care Teams Emergency Dispatch Operator Relationship Specialty Start Date End Date Khadijah Neves MD PCP - General 04/24/07 02/27/20 Yuniel Jurado MD PCP - General Family Practice 09/23/22 documented as of this encounter
--- OUTSIDE RECORDS SUMMARY | 2025-04-16 14:59 | XMS_ITS | Encounter Summary ---
Author Organization [facility] Address [address] [place] [address] Care Team Providers Care Lay Out Carpenter Name Role Phone Khadijah Neves MD Primary Care Provider Un available Yuniel Jurado MD Primary Care Provider Unav ailable Encounter Details Date Type Department Care Team Description 04/29/2016 Refill Medicine/Pediatrics - [address] [phone] Susan Sneed PA-C Social History Tobacco Use [...] MG tablet [Susan Sneed PA-C] Preferred pharmacy: [facility] - [place] - [place], [place] - [address] [facility] Comment: This was approved but not sent to my pharmacy. I went to pick it up 04/29 at 6 pm and they do not have it. ? [facility]. This is twice this mo. I have had a problem with either approval very late in the day and now not called in. ??? documented in this encounter Plan of Treatment Not on file documented as of this encounter Visit Diagnoses Not on filedocumented in this encounter Care Teams Lay Out Carpenter Relationship Specialty Start Date End Date Khadijah Neves MD PCP - General 04/24/07 02/27/20 Yuniel Jurado MD PCP - General Family Practice 09/23/22 documented as of this encounter
--- OUTSIDE RECORDS SUMMARY | 2025-04-16 14:59 | XMS_ITS | Encounter Summary ---
Author Organization [facility] Address [address] [place] [address] Care Team Providers Care Window Glass Cutter Off Name Role Phone Khadijah Neves MD Primary Care Provider Un available Yuniel Jurado MD Primary Care Provider Unav ailable Encounter Details Date Type Department Care Team Description 03/31/2019 Telephone Medicine/Pediatrics - [address] [phone] Margaret Simental MD Social History Tobacco Use [...] on filedocumented in this encounter Care Teams Window Glass Cutter Off Relationship Specialty Start Date End Date Khadijah Neves MD PCP - General 04/24/07 02/27/20 Yuniel Jurado MD PCP - General Family Practice 09/23/22 documented as of this encounter
--- OUTSIDE RECORDS SUMMARY | 2025-04-16 14:59 | XMS_ITS | Encounter Summary ---
Author Organization [facility] Address [address] [facility] [address] [place] [address] Phone Care Team Providers Care Petroleum Analyst Name Role Phone Francisco Mane CNP Primary Care Provider Rodrigue Boyce MD Unavailable [phone] Megan Rosas MD Unavailable [phone] Pcp, Unknown Primary Care Provider Unavailabl e Encounter Details Date Type Department Care Team (Late st Contact Info) Description 02/27/2021 Procedure Pass [facility], [address] [address] Social History Tobacco Use Types Packs/Day Years [...] on filedocumented in this encounter Care Teams Petroleum Analyst Relationship Specialty Start Date End Date Francisco Mane CNP [address] [facility], [address] [place], [place] [id number] PCP - General Family Medicine 07/17/19 03/14/22 Pcp, Unknown PCP - General 03/15/22 Rodrigue Boyce MD [address] [place] [address], [address] [place] [address] Insurance Assigned Provider Internal Medicine 04/03/20 Megan Rosas MD [address] [place] [address], [address] [place] [address] [email or web address] Insurance Assigned Provider 11/22/20 08/21/22 documented as of this encounter Additional Source Comments The information contained in this document represents components of the legal health record. It is not the complete legal health record.[facility]
--- OUTSIDE RECORDS SUMMARY | 2025-04-16 14:59 | XMS_ITS | Encounter Summary ---
Author Organization [facility] Address [address] [facility] [address] [place] [address] Phone Care Team Providers Care Business Controller Name Role Phone Francisco Mane CNP Primary Care Provider Rodrigue Boyce MD Unavailable [phone] Megan Rosas MD Unavailable [phone] Pcp, Unknown Primary Care Provider Unavailabl e Encounter Details Date Type Department Care Team (Late st Contact Info) Description 03/20/2021 Procedure Pass [facility] - Peripoerative Interventional Radiology [address] [facility], 4th [place] [address] Social History Tobacco Use Types Packs/Day Years [...] filedocumented in this encounter Care Teams Business Controller Relationship Specialty Start Date End Date Francisco Mane CNP [address] [facility], [address] [place] [address] PCP - General Family Medicine 07/17/19 03/14/22 Pcp, Unknown PCP - General 03/15/22 Rodrigue Boyce MD [address] [facility], [address] [place] [address] Insurance Assigned Provider Internal Medicine 04/03/20 Megan Rosas MD [address] [facility], [address] [place] [address] [email or web address] Insurance Assigned Provider 11/22/20 08/21/22 documented as of this encounter Additional Source Comments The information contained in this document represents components of the legal health record. It is not the complete legal health record.[facility]
--- OUTSIDE RECORDS SUMMARY | 2025-04-16 14:59 | XMS_ITS | Encounter Summary ---
Author Organization [facility] Address [address] [place] [address] Care Team Providers Care Resume Writer Name Role Phone Khadijah Neves MD Primary Care Provider Un available Yuniel Jurado MD Primary Care Provider Unav ailable Encounter Details Date Type Department Care Team Description 06/14/2016 [facility] Medical Records [address] [place] [address] Abstract, Provider Social History Tobacco Use Types [...] on filedocumented in this encounter Care Teams Resume Writer Relationship Specialty Start Date End Date Khadijah Neves MD PCP - General 04/24/07 02/27/20 Yuniel Jurado MD PCP - General Family Practice 09/23/22 documented as of this encounter
--- OUTSIDE RECORDS SUMMARY | 2025-04-16 14:59 | XMS_ITS | Encounter Summary ---
Author Organization [facility] Address [address] [place] [address] Care Team Providers Care Tea Bag Packer Name Role Phone Khadijah Neves MD Primary Care Provider Un available Yuniel Jurado MD Primary Care Provider Unav ailable Encounter Details Date Type Department Care Team Description 12/03/2013 Business Doc Medical Records [address] [place] [address] Abstract, Provider Social History Tobacco Use Types [...] on filedocumented in this encounter Care Teams Tea Bag Packer Relationship Specialty Start Date End Date Khadijah Neves MD PCP - General 04/24/07 02/27/20 uYniel Jurado MD PCP - General Family Practice 09/23/22 documented as of this encounter
--- OUTSIDE RECORDS SUMMARY | 2025-04-16 14:59 | XMS_ITS | Encounter Summary ---
Author Organization [facility] Address [address] [place] [address] Care Team Providers Care Buffer Nickel Name Role Phone Khadijah Neves MD Primary Care Provider Un available Yuniel Jurado MD Primary Care Provider Unav ailable Encounter Details Date Type Department Care Team Description 08/07/2018 Home Health Certification Medical Records [address] [place] [address] [facility] [address] [place] [address] Social History Tobacco Use Types Packs/Day Years [...] on filedocumented in this encounter Care Teams Buffer Nickel Relationship Specialty Start Date End Date Khadijah Neves MD PCP - General 04/24/07 02/27/20 Yuneil Jurado MD PCP - General Family Practice 09/23/22 documented as of this encounter
--- OUTSIDE RECORDS SUMMARY | 2025-04-16 14:59 | XMS_ITS | Encounter Summary ---
Author Organization [facility] Address [address] [place] [address] Care Team Providers Care Scientific Database Curator Name Role Phone Khadijah Neves MD Primary Care Provider Un available Yuniel Jurado MD Primary Care Provider Unav ailable Encounter Details Date Type Department Care Team Description 11/11/2016 Pediatric Radiologist Report Medical Records [address] [place] [address] Rodolfo Cha MD Social History Tobacco Use [...] on filedocumented in this encounter Care Teams Scientific Database Curator Relationship Specialty Start Date End Date Khadijah Neves MD PCP - General 04/24/07 02/27/20 Yuniel Jurado MD PCP - General Family Practice 09/23/22 documented as of this encounter
--- OUTSIDE RECORDS SUMMARY | 2025-04-16 14:59 | XMS_ITS | Encounter Summary ---
Author Organization [facility] Address [address] [place] [address] Care Team Providers Care Staff Respiratory Therapist Name Role Phone Khadijah Neves MD Primary Care Provider Un available Yuniel Jurado MD Primary Care Provider Unav ailable Encounter Details Date Type Department Care Team Description 01/26/2016 Controlled Substance Plan Medical Records [address] [place] [address] Abstract, Provider Social History Tobacco Use Types [...] on filedocumented in this encounter Care Teams Staff Respiratory Therapist Relationship Specialty Start Date End Date Khadijah Neves MD PCP - General 04/24/07 02/27/20 Yuniel Jurado MD PCP - General Family Practice 09/23/22 documented as of this encounter
--- OUTSIDE RECORDS SUMMARY | 2025-04-16 14:59 | XMS_ITS | Encounter Summary ---
Author Organization [facility] Address [address] [facility] [address] [place] [address] Phone Care Team Providers Care Paint Coating Machine Operator Name Role Phone Francisco Mane CNP Primary Care Provider Rodrigue Boyce MD Unavailable [phone] Megan Rosas MD Unavailable [phone] Pcp, Unknown Primary Care Provider Unavailabl e Encounter Details Date Type Department Care Team (Late st Contact Info) Description 02/26/2021 Procedure Pass [facility], [address] [address] Social History Tobacco Use Types Packs/Day Years [...] on filedocumented in this encounter Care Teams Paint Coating Machine Operator Relationship Specialty Start Date End Date Francisco Mane CNP [address] [facility], [address] [place], [place] [address] PCP - General Family Medicine 07/17/19 03/14/22 Pcp, Unknown PCP - General 03/15/22 Rodrigue Boyce MD [address] [place] [address], [address] [place] [address] Insurance Assigned Provider Internal Medicine 04/03/20 Megan Rosas MD [address] [place] [address], [address] [place] [address] [email or web address] Insurance Assigned Provider 11/22/20 08/21/22 documented as of this encounter Additional Source Comments The information contained in this document represents components of the legal health record. It is not the complete legal health record.[facility]
--- OUTSIDE RECORDS SUMMARY | 2025-04-16 14:59 | XMS_ITS | Encounter Summary ---
Author Organization [facility] Address [address] [facility] [address] [place] [address] Phone Care Team Providers Care Visual Developer Name Role Phone Francisco Mane CNP Primary Care Provider Rodrigue Boyce MD Unavailable [phone] Megan Rosas MD Unavailable [phone] Pcp, Unknown Primary Care Provider Unavailabl e Encounter Details Date Type Department Care Team (Late st Contact Info) Description 04/02/2021 Procedure Pass [facility] [address] [place] [phone] Social History Tobacco Use Types Packs/Day Years [...] on filedocumented in this encounter Care Teams Visual Developer Relationship Specialty Start Date End Date Francisco Mane CNP [address] [facility], [address] [place] [address] PCP - General Family Medicine 07/17/19 03/14/22 Pcp, Unknown PCP - General 03/15/22 Rodrigue Boyce MD [address] [place] [address], [address] [place] [address] Insurance Assigned Provider Internal Medicine 04/03/20 Megan Rosas MD [address] [place] [address], [address] [place] [address] Insurance Assigned Provider 11/22/20 08/21/22 documented as of this encounter Additional Source Comments The information contained in this document represents components of the legal health record. It is not the complete legal health record.[facility]
--- OUTSIDE RECORDS SUMMARY | 2025-04-16 14:59 | XMS_ITS | Encounter Summary ---
Author Organization [facility] Address [address] [place] [address] Care Team Providers Care Wire Drawing Die Maker Name Role Phone Khadijah Neves MD Primary Care Provider Un available Yuniel Jurado MD Primary Care Provider Unav ailable Reason for Visit * Reason Onset Date Comments Orders Call 12/09/2016 unresulted order s Encounter Details Date Type Department Care Team Description 12/09/2016 Telephone Medicine/Pediatrics - [address] [phone] Khadijah Neves MD Orders Call (unresulted orders) [...] on filedocumented in this encounter Care Teams Wire Drawing Die Maker Relationship Specialty Start Date End Date Khadijah Neves MD PCP - General 04/24/07 02/27/20 Yuniel Jurado MD PCP - General Family Practice 09/23/22 documented as of this encounter
--- OUTSIDE RECORDS SUMMARY | 2025-04-16 14:59 | XMS_ITS | Encounter Summary ---
Author Organization [facility] Address [address] [place] [address] Care Team Providers Care Dethistler Operator Name Role Phone Khadijah Neves MD Primary Care Provider Un available Yuniel Jurado MD Primary Care Provider Unav ailable Encounter Details Date Type Department Care Team Description 05/04/2018 Pt. Non Urgent Medic al Question Medicine/Pediatrics - [address] [phone] Khadijah Neves MD Social History Tobacco Use [...] M.A. - 05/04/2018 1:18 PM EDTFrom: Iram Warrenfloridalma To: Khadijah Neves MD Sent: 05/04/2018 1:17 [...] order for my refill dates and just coal picker at office. I have to get a ride there. Thanks Iram [place] documented in this encounter Plan of Treatment Not on file documented as of this encounter Visit Diagnoses Not on filedocumented in this encounter Care Teams Dethistler Operator Relationship Specialty Start Date End Date Khadijah Neves MD PCP - General 04/24/07 02/27/20 Yuniel Jurado MD PCP - General Family Practice 09/23/22 documented as of this encounter
--- OUTSIDE RECORDS SUMMARY | 2025-04-16 14:59 | XMS_ITS | Encounter Summary ---
Author Organization [facility] Address [address] [place] [address] Care Team Providers Care Student Services Counselor Name Role Phone Khadijah Neves MD Primary Care Provider Un available Yuniel Jurado MD Primary Care Provider Unav ailable Reason for Referral * EXTERNAL (Routine) - Authorized/Booked Specialty Diagnoses / Procedures Referred By Contadriano t Referred To Contact CARDIAC SURGERY Procedures REFERRAL TO CARDIAC SURGERY Margaret Simental MD [address] [place] [address] [address] Referral ID Status Reason Start Date Expiration Date V isits Requested Visits Authorized SEE NOTE Authorized/B ooked 03/16/2019 06/16/2019 1 1 Reason for Visit * Reason Onset Date Comments Veneer Jointer Offbearer Feedback 03/16/2019 Thoracic Surgery vs Cardiac Thoracic Surgery Encounter Details Date Type Department Care Team Description 03/16/2019 Telephone Medicine/Pediatrics - [place] [address] [place] [phone] Margaret Simental MD Veneer Jointer Offbearer Feedback (Thoracic Surgery vs Cardiac Thoracic Surgery) [...] on filedocumented in this encounter Care Teams Student Services Counselor Relationship Specialty Start Date End Date Khadijah Neves MD PCP - General 04/24/07 02/27/20 Yuniel Jurado MD PCP - General Family Practice 09/23/22 documented as of this encounter
--- OUTSIDE RECORDS SUMMARY | 2025-04-16 14:59 | XMS_ITS | Encounter Summary ---
Author Organization [facility] Address [address] [place] [address] Care Team Providers Care Set Up Mechanic Name Role Phone Khadijah Neves MD Primary Care Provider Un available Yuniel Jurado MD Primary Care Provider Unav ailable Encounter Details Date Type Department Care Team Description 07/15/2015 TOE POUNDER/[facility] Report Medical Records [address] [place] [address] Abstract, Provider Social History Tobacco Use Types [...] on filedocumented in this encounter Care Teams Set Up Mechanic Relationship Specialty Start Date End Date Khadijah Neves MD PCP - General 04/24/07 02/27/20 Yuniel Jurado MD PCP - General Family Practice 09/23/22 documented as of this encounter
--- OUTSIDE RECORDS SUMMARY | 2025-04-16 14:59 | XMS_ITS | Encounter Summary ---
Author Organization [facility] Address [address] [place] [address] Care Team Providers Care Chief Scientist Name Role Phone Khadijah Neves MD Primary Care Provider Un available Yuniel Jurado MD Primary Care Provider Unav ailable Encounter Details Date Type Department Care Team Description 04/11/2017 [facility] Controlled Substance Contract Medical Records [address] [place] [address] Abstract, Provider Social History Tobacco Use Types [...] filedocumented in this encounter Care Teams Chief Scientist Relationship Specialty Start Date End Date Khadijah Neves MD PCP - General 04/24/07 02/27/20 Yuniel Jurado MD PCP - General Family Practice 09/23/22 documented as of this encounter
--- OUTSIDE RECORDS SUMMARY | 2025-04-16 14:59 | XMS_ITS | Encounter Summary ---
Author Organization [facility] Address [address] [place] [address] Care Team Providers Care Sawmill Manager Name Role Phone Khadijah Neves MD Primary Care Provider Un available Yuniel Jurado MD Primary Care Provider Unav ailable Encounter Details Date Type Department Care Team Description 11/25/2014 Controlled Substance Plan Medical Records [address] [place] [address] Abstract, Provider Social History Tobacco Use Types [...] on filedocumented in this encounter Care Teams Sawmill Manager Relationship Specialty Start Date End Date Khadijah Neves MD PCP - General 04/24/07 02/27/20 Yuniel Jurado MD PCP - General Family Practice 09/23/22 documented as of this encounter
--- OUTSIDE RECORDS SUMMARY | 2025-04-16 15:00 | XMS_ITS | Encounter Summary ---
Author Organization [facility] Address [address] [place] [address] Care Team Providers Care Global Creative Chairman Name Role Phone Khadijah Neves MD Primary Care Provider Un available Yuniel Jurado MD Primary Care Provider Unav ailable Encounter Details Date Type Department Care Team Description 01/15/2019 [facility] Medical Records [address] [place] [address] Abstract, Provider Social History Tobacco Use Types [...] on filedocumented in this encounter Care Teams Global Creative Chairman Relationship Specialty Start Date End Date Khadijah Neves MD PCP - General 04/24/07 02/27/20 Yuniel Jurado MD PCP - General Family Practice 09/23/22 documented as of this encounter
--- OUTSIDE RECORDS SUMMARY | 2025-04-16 15:00 | XMS_ITS | Encounter Summary ---
Author Organization [facility] Address [address] [place] [address] Care Team Providers Care Dolphin Researcher Name Role Phone Khadijah Neves MD Primary Care Provider Un available Yuniel Jurado MD Primary Care Provider Unav ailable Encounter Details Date Type Department Care Team Description 03/15/2019 [place] Controlled Substance Contract Medical Records [address] [place] [address] Abstract, Provider Social History Tobacco Use Types [...] on filedocumented in this encounter Care Teams Dolphin Researcher Relationship Specialty Start Date End Date Khadijah Neves MD PCP - General 04/24/07 02/27/20 Yuniel Jurado MD PCP - General Family Practice 09/23/22 documented as of this encounter
--- OUTSIDE RECORDS SUMMARY | 2025-04-16 15:00 | XMS_ITS | Encounter Summary ---
Author Organization [facility] Address [address] [place] [address] Care Team Providers Care Set Painter Name Role Phone Khadijah Neves MD Primary Care Provider Un available Yuniel Jurado MD Primary Care Provider Unav ailable Encounter Details Date Type Department Care Team Description 08/23/2014 DIRECTOR OF PUBLIC HEALTH/[facility] Report Medical Records [address] [place] [address] Abstract, Provider Social History Tobacco Use Types [...] filedocumented in this encounter Care Teams Set Painter Relationship Specialty Start Date End Date Khadijah Neves MD PCP - General 04/24/07 02/27/20 Yuniel Jurado MD PCP - General Family Practice 09/23/22 documented as of this encounter
--- OUTSIDE RECORDS SUMMARY | 2025-04-16 15:00 | XMS_ITS | Encounter Summary ---
Author Organization [facility] Address [address] [place] [address] Care Team Providers Care Spiral Machine Operator Name Role Phone Khadijah Neves MD Primary Care Provider Un available Yuniel Jurado MD Primary Care Provider Unav ailable Encounter Details Date Type Department Care Team Description 10/24/2014 Release of Information Medical Records [address] [place] [address] Abstract, Provider Social History Tobacco Use Types [...] on filedocumented in this encounter Care Teams Spiral Machine Operator Relationship Specialty Start Date End Date Khadijah Neves MD PCP - General 04/24/07 02/27/20 Yuniel Jurado MD PCP - General Family Practice 09/23/22 documented as of this encounter
--- OUTSIDE RECORDS SUMMARY | 2025-04-16 15:00 | XMS_ITS | Encounter Summary ---
Author Organization [facility] Address [address] [place] [address] Care Team Providers Care Pickle Cutter Name Role Phone Khadijah Neves MD Primary Care Provider Un available Yuniel Jurado MD Primary Care Provider Unav ailable Reason for Visit * Reason Onset Date Comments hospital follow up 10/04/2016 Encounter Details Date Type Department Care Team Description 10/04/2016 Telephone Medicine/Pediatrics - [address] [phone] Khadijah Neves MD hospital follow up Social [...] Oxycodone has been requested and to call [place] tomorrow about it and to call tomorrow [...] appointment needed Hospital patient was treated at: [facility] Was this only an ER visit or was the patient admitted to the hospital? Admitted to hospital Date of visit if ER visit only: N/A If patient was admitted what was the date of discharge? 10/02/16 from [facility] - Hipfx surgery Reason/diagnosis for visit or [...] unspecified documented in this encounter Care Teams Pickle Cutter Relationship Specialty Start Date End Date Khadijah Neves MD PCP - General 04/24/07 02/27/20 Yuniel Jurado MD PCP - General Family Practice 09/23/22 documented as of this encounter
--- OUTSIDE RECORDS SUMMARY | 2025-04-16 15:00 | XMS_ITS | Encounter Summary ---
Author Organization [facility] Address [address] [place] [address] Care Team Providers Care Inpatient Nursing Aide Name Role Phone Khadijah Neves MD Primary Care Provider Un available Yuniel Jurado MD Primary Care Provider Unav ailable Encounter Details Date Type Department Care Team Description 06/04/2014 Controlled Substance Contract with Plan Medical Records [address] [place] [address] Abstract, Provider Social History Tobacco Use Types [...] on filedocumented in this encounter Care Teams Inpatient Nursing Aide Relationship Specialty Start Date End Date Khadijah Neves MD PCP - General 04/24/07 02/27/20 Yuniel Jurado MD PCP - General Family Practice 09/23/22 documented as of this encounter
--- OUTSIDE RECORDS SUMMARY | 2025-04-16 15:00 | XMS_ITS | Encounter Summary ---
Author Organization [facility] Address [address] [place] [address] Care Team Providers Care Emergency Management Program Specialist Name Role Phone Khadijah Neves MD Primary Care Provider Un available Yuniel Jurado MD Primary Care Provider Unav ailable Encounter Details Date Type Department Care Team Description 09/15/2016 Plumbing Engineering Draftsperson Report Medical Records [address] [place] [address] Reuben Seymour Social History Tobacco Use Types [...] filedocumented in this encounter Care Teams Emergency Management Program Specialist Relationship Specialty Start Date End Date Khadijah Neves MD PCP - General 04/24/07 02/27/20 Yuniel Jurado MD PCP - General Family Practice 09/23/22 documented as of this encounter
--- OUTSIDE RECORDS SUMMARY | 2025-04-16 15:00 | XMS_ITS | Clinical Summary ---
Author Organization [facility] Address [address] [address] Phone Care Team Providers Care Global Risk Management Director Name Role Phone Rodrigue Boyce MD Unavailable [phone] Pcp, Unknown Primary Care Provider Unavailabl [...] referral in from her PCP to see [facility] pain clinic. Anxiety and depression 07/17/2019 Chronic, [...] years but when she transferred over to [facility] this medication did not follow through. She [...] this topic Medical Devices Implanted Type Area Set Up Mechanic Coil Winding Machines Device Identifier Shelf Expiration Date Model / Serial / Lot Kit Cement Bone Kyphon Xpede Polymethylmethacrylate Mixer - [id number] Implanted:Qty: 1 on 04/02/2021 by Alec Thomas MD at [facility] Bone Cement N/A: Spine Lumbar [employer] 01/13/2024 [id number] / / [id number] Procedures Procedure Name Priority Date/Time Associated [...] 10:54 AM EST) URINE CREATININE 94 mg/dL [facility] CREATININE OUTPUT 705 600 - 1,800 mg/total output [facility] Urine (Urine) 09/07/2021 10: 54 AM EST 09/07/2021 10:56 AM EST us Rodrigue Swansonasio DO URINE ORDERABLES Final Result [address] [address] * (ABNORMAL) Comprehensive metabolic panel (09/03/2021 10:39 AM EST) SODIUM 136 133 - 146 mmol/L [facility] POTASSIUM 4.0 3.3 - 5.1 mmol/L [facility] CHLORIDE 99 96 - 108 mmol/L [facility] CO2 24 21 - 35 mmol/L [facility] BUN 12 6 - 19 mg/dL [facility] CREATININE 0.70 0.5 - 1.5 mg/dL [facility] GLUCOSE 100(H) 70 - 99 mg/dL [facility] ALBUMIN 4.8 3.9 - 4.8 g/dL [facility] TOTAL PROTEIN 7.3 6.5 - 8.0 g/dL [facility] CALCIUM 9.8 8.4 - 10.3 mg/dL [facility] ALKALINE PHOSPHATASE 119(H) 39 - 117 U/L [facility] TOTAL BILIRUBIN 0.4 0.0 - 1.2 mg/dL [facility] AST 17 0 - 37 U/L [facility] ALT 10 0 - 40 U/L [facility] GLOBULIN 2.5 1 - 4.8 g/dL [facility] EGFR 94 >59 mL/min/1.7 3m2 [facility] Comment:Estimated glomerular filtration rate calculated using the CKD-EPI refit equation. ANION GAP 17 10 - 20 mmol/L [facility] Blood 09/03/2021 10:3 9 AM EST 09/03/2021 10:48 AM EST us Francisco Mane [facility] BLOOD ORDERABLES F inal Result [address] [address] * Hepatitis C antibody, qualitative (09/03/2021 10:39 AM EST) HCV NON-REACTIV E NON-REACTI VE [facility] Blood 09/03/2021 10:3 9 AM EST 09/03/2021 10:48 AM EST Francisco Mane [facility] LAB BLOOD ORDERABLES F inal Result Performing Organization Address [facility]/ZIP Co de Phone Number [address] [address] * (ABNORMAL) Lipid panel (09/03/2021 10:39 AM EST) HDL 67 mg/dL [facility] Comment: Interpretation <40 mg/dL: Low HDL cholesterol (major risk factor for CHD) Greater than or equal to 60 mg/dL: High HDL cholesterol ( negative risk factor for CHD) HDL - cholesterol is affected by a number of factors, e.g. smoking, excerise, hormones, sex and age. CHOLESTEROL 301(H) 0 - 240 mg/dL [facility] TRIGLYCERIDES 105 30 - 160 mg/dL [facility] LDL 213(H) 50 - 129 mg/dL [facility] Comment: LDL levels in terms of risk for coronary heart disease: <100 mg/dL: Optimal 100-129 mg/dL: Near or above optimal 130-159 mg/dL: Borderline high 160-189 mg/dL: High >190 mg/dL: Very High CARDIAC RISK RATIO 4.5(H) 3.3 - 4.4 C [facility] Blood 09/03/2021 10:3 9 AM EST 09/03/2021 10:48 AM EST Francisco Mane [facility] LAB BLOOD ORDERABLES F inal Result Performing Organization Address City/[facility]/ZIP Co de Phone Number [address] [address] * BD DXA AXIAL (SPINE) WITH HIP [...] Z scoreis -2.9. IMPRESSION: Osteoporosis. Francisco Mane [facility] IMG BD BONE DENSITY DE XA Final Result * MAMMOGRAPHY FOR RESULT ENTRY ONLY (12/03/2013) Mammogram birads 1 negative Historical Provider HEALTH MAINTENANCE Final Result from Last 3 Months or Most Recently Relevant to Health Maintenance Insurance MEDICARE PART A & B [facility] [employer] PPO MEDICARE REPLACEMENT MEDICARE PART A & B [facility] RE[facility]AC[facility] MEDICARE PART [place] B [facility] [employer] PPO MEDICARE REPLACEMENT [place] [facility] [facility] REPLAC[facility] MEDICARE PART A & B [facility] [employer] O MEDICARE REPLACEMENT MEDICARE PART A & B [facility] [employer] PPO MEDICARE REPLACEMENT Care Teams Global Risk Management Director Relationship Specialty Start Date End Date Pcp, Unknown PCP - General 03/15/22 Rodrigue Boyce MD [address] [place] [address], [address] [place] [address] [email or web address] Insurance Assigned Provider Internal Medicine 04/03/20 Additional Source Comments The information contained in this document represents components of the legal health record. It is not the complete legal health record.[facility]
--- OUTSIDE RECORDS SUMMARY | 2025-04-16 15:00 | XMS_ITS | Encounter Summary ---
Author Organization [facility] Address [address] [place] [address] Care Team Providers Care Airplane Patrol Pilot Name Role Phone Khadijah Neves MD Primary Care Provider Un available Yuniel Jurado MD Primary Care Provider Unav ailable Encounter Details Date Type Department Care Team Description 01/27/2017 Orders Only Medicine/Pediatrics - [address] [address] Khadijah Neves MD Smoker; Unexplained weight loss; [...] Cough documented in this encounter Care Teams Airplane Patrol Pilot Relationship Specialty Start Date End Date Khadijah Neves MD PCP - General 04/24/07 02/27/20 Yuniel Jurado MD PCP - General Family Practice 09/23/22 documented as of this encounter
--- OUTSIDE RECORDS SUMMARY | 2025-04-16 15:00 | XMS_ITS | Encounter Summary ---
Author Organization [facility] Address [address] [place] [address] Care Team Providers Care Dye House Supervisor Name Role Phone Khadijah Neves MD Primary Care Provider Un available Yuniel Jurado MD Primary Care Provider Unav ailable Encounter Details Date Type Department Care Team Description 10/01/2016 [facility] Medical Records [address] [place] [id number] Abstract, Provider Social History Tobacco Use Types [...] on filedocumented in this encounter Care Teams Dye House Supervisor Relationship Specialty Start Date End Date Khadijah Neves MD PCP - General 04/24/07 02/27/20 Yuniel Jurado MD PCP - General Family Practice 09/23/22 documented as of this encounter
--- OUTSIDE RECORDS SUMMARY | 2025-04-16 15:00 | XMS_ITS | Encounter Summary ---
Author Organization [facility] Address [address] [place] [address] Care Team Providers Care Cook Specialty Name Role Phone Khadijah Neves MD Primary Care Provider Un available Yuniel Jurado MD Primary Care Provider Unav ailable Encounter Details Date Type Department Care Team Description 08/31/2011 Inventory Control Supervisor Report Medical Records [address] [place] [address] Reuben Talamantes Social History Tobacco Use Types [...] on filedocumented in this encounter Care Teams Cook Specialty Relationship Specialty Start Date End Date Khadijah Neves MD PCP - General 04/24/07 02/27/20 Yuniel Jurado MD PCP - General Family Practice 09/23/22 documented as of this encounter
== END 2025-04-16 15:00 | disposition home or self-care (01) ==
DX: J43.9 Emphysema, unspecified (principal); F41.9 Anxiety disorder, unspecified; F32.A Depression, unspecified; I10 Essential (primary) hypertension; I77.810 Thoracic aortic ectasia; E78.00 Pure hypercholesterolemia, unspecified; R73.01 Impaired fasting glucose; M81.0 Age-related osteoporosis without current pathological fracture; F17.200 Nicotine dependence, unspecified, uncomplicated; M54.9 Dorsalgia, unspecified; G89.29 Other chronic pain; M54.42 Lumbago with sciatica, left side

== ENCOUNTER → 2025-04-16 13:44 | Outpatient (BNVA) | payer MEDICARE, MEDICAID, SELFPAY | DX: M81.0 Age-related osteoporosis without current pathological fracture (principal); J44.9 Chronic obstructive pulmonary disease, unspecified; F41.9 Anxiety disorder, unspecified; F32.A Depression, unspecified; F17.210 Nicotine dependence, cigarettes, uncomplicated; I10 Essential (primary) hypertension; I77.810 Thoracic aortic ectasia; E78.00 Pure hypercholesterolemia, unspecified; R73.01 Impaired fasting glucose; J43.9 Emphysema, unspecified; M54.42 Lumbago with sciatica, left side | CPT/HCPCS: 96127; 99212 ==

== ENCOUNTER 2025-06-06 14:03 | Outpatient (AMB) | payer MEDICARE, SELFPAY ==
--- NOTE | 2025-06-06 14:04 | A.OFFVIS_ITS ---
Vital Signs 06/06/25 14:07 Height 5 ft Weight 96 lb BMI 18.7 BP 177/111 H Blood Pressure Location Lt brachial Position Sitting Pulse 116 H Pulse Source Pulse Oximeter Pulse Oximetry (%) 95 Oxygen Delivery Method Room Air Intake Visit Reasons: Lumbago with sciatica, left side Scar 05/02/25 Allergies alendronate sodium (From Fosamax) Allergy (Mild, Verified 06/06/25 14:08) Hives HPI Comments Details: The patient is a 74-year-old female presenting with right-sided low back pain and neck pain. Patient reports upper back and neck pain have been more bothersome to her lately and lower back is currently mild, and partially managed with Percocet. The patient has a history of carpal tunnel syndrome, chronic neck and back pain, and osteoporosis, which have been longstanding issues. She also has kyphoscoliosis, previous kyphoplasty, cervical fusions, and left hip surgery, left ORIF in 2020. Chronic neck and back pain has been a persistent problem, exacerbated by a recent fall leading to a pubic ramus fracture. The patient reports that her chronic back pain radiates to the right leg, although she is not experiencing pain at the moment of the visit. She also reports weakness and pain along her left lateral hip region and left knee and has plans to follow up with Orthopedics. Back, hip and knee pain contributes to her mobility issues. She reports difficulty with stairs and has adapted her living situation to accommodate her limited mobility. The patient has undergone multiple interventions, including kyphoplasty and the use of a walker for mobility. She has tried physical therapy with minimal response and is currently on a regimen that includes opioids and gabapentin, though she reports limited relief. - Onset: Chronic, with recent exacerbation due to a fall - Quality: Radiating pain to the right leg, aching, sharp, dull, heavy, sore - Location: Right-sided low back pain, neck and upper back pain, - Exacerbating Factors: Movement, particularly bending backwards, side to side rotations - Relieving Factors: Leaning forward provides some relief - Interference: Affects mobility, requiring the use of a walker - Affect: Pain impacts daily activities and mobility, causing fear of falling - Analgesia: Current medications include opioids and gabapentin, with limited relief reported - Adverse Effects: No specific adverse effects reported from current medications - Activities of Daily Living: Pain limits mobility and requires the use of a walker; patient avoids stairs - Aberrant Drug Related Behaviors: No aberrant behaviors reported [facility] Medical History Pure hypercholesterolemia Carpal tunnel syndrome Smoking Osteoporosis Overactive bladder Kyphoscoliosis deformity of spine Chronic back pain greater than 3 months duration Sternal fracture COPD with emphysema Ascending aorta dilation Surgical History History of kyphoplasty History of hip surgery Social History Household Members: Spouse Housing: House Are you a primary patient care secretary to a significant other at home: No Do you presently have visiting nurse or other home services: Yes (crystal syrup maker) Patient Tobacco Use Status: Current someday Tobacco user Tobacco use type: Cigarette Cigarette Packs Per Day: 0.5 Cigarettes Per Day: 10.0 e-Cigarette/Vaping Use: Never Used Second Hand Smoke Exposure: No service: No Current occupational status: retired and disabled Current occupational exposures/hazards: No Cognitive needs: No Hearing needs: No Vision needs: No Review of Systems Const All systems reviewed & are unremarkable except as noted in HPI and below Physical Exam Vital Signs: Last Vital Signs Pulse 116 H 06/06/25 14:07 BP 177/111 H 06/06/25 14:07 Pulse Ox 95 06/06/25 14:07 Oxygen Delivery Method Room Air 06/06/25 14:07 BMI result Body Mass Index 18.7 General: Appears afebrile. Alert and oriented. Mood and affect appropriate. Follows and participates in conversation appropriately. Respiratory effort is unlabored. No cough. Able to transition from sit to stand unassisted. Ambulates with kyphotic posture, leaning forward, uses walker with seat. Neck Neck: Yes normal visual inspection, Yes no lymphadenopathy, Yes supple, No anterior neck swelling, Yes no JVD, No prominent supraclavicular fat pad and No prominent dorsocervical fat pad General: Yes no CVA tenderness Back/Spine/Pelvis Back: no CVA tenderness and No back tenderness Cervical Spine: No collar present, loss of normal cervical lordosis, cervical muscular tenderness, pain with cervical ROM (cervical extension and lateral rotations), Cervical spine scars present and No Cervical spine tenderness Thoracic/Lumbar Spine: thoracic and lumbar spine normal to inspection, No Thoracic/lumbar spine scar(s), Lasegue's sign negative, straight leg raise n egative bilaterally, kyphosis, pain with thoraco-lumbar ROM (positive facet loading bilaterally), paraspinal muscle tenderness, thoraco-lumbar ROM limited, Thoracic/lumbar scoliosis (severe), No thoracic spinal tenderness and No lumbar spinal tenderness Extrem General: Yes capillary refill normal, Yes no clubbing, cyanosis or edema and Yes no calf tenderness Results Reviewed Results Reviewed: XR LUMBOSACRAL SPINE 12/21/24 CLINICAL INFORMATION: M25.559 - Pain in unspecified hip COMPARISON: Correlated to MRI dated April 21, 2024. TECHNIQUE: Three views of the lumbosacral spine. FINDINGS: Multilevel compression deformities throughout the axial skeleton representing 40% volume loss. Radiopaque material within the vertebral body of L1. Levoconvex rotoscoliosis. Osteopenia versus the process. Grade 1 anterolisthesis L5-S1. Vascular calcifications, aorta Metallic hardware in the femur no clear site.. IMPRESSION: Multilevel subacute to old compression fractures throughout the axial skeleton and status post kyphoplasty/vertebroplasty procedure at L1. Osteopenia versus osteoporosis. Atherosclerosis disease. XR PELVIS 1-2 VIEWS 04/10/25 HISTORY: M25.559 - Pain in unspecified hip COMPARISON: Comparison is made with the prior examination dated 02/13/2025. FINDINGS: A single AP view of the pelvis is submitted. The bones are osteopenic. The patient is again noted to be status post internal fixation of both hips with compression screws and intramedullary rods. There are healing fractures of the right superior and inferior pubic rami with callus formation. The fracture lines remain visible. There is mild narrowing of both hips. The soft tissues are unremarkable. IMPRESSION: Healing fractures of the right superior and inferior pubic rami. Assessment & Plan Assessment & Plan (1) Cervical spondylosis: Code(s): M47.812 - Spondylosis without myelopathy or radiculopathy, cervical region Category: Medical (2) Cervical post-laminectomy syndrome: Code(s): M96.1 - Postlaminectomy syndrome, not elsewhere classified Category: Medical (3) Scoliosis: Code(s): M41.9 - Scoliosis, unspecified Category: Medical (4) Kyphosis: Code(s): M40.209 - Unspecified kyphosis, site unspecified Category: Medical (5) Upper back pain: Code(s): M54.9 - Dorsalgia, unspecified Category: Medical (6) Chronic back pain: Code(s): M54.9 - Dorsalgia, unspecified; G89.29 - Other chronic pain Category: Medical (7) Osteoporosis: Code(s): M81.0 - Age-related osteoporosis without current pathological fracture Category: Medical (8) Lumbosacral spondylosis: Code(s): M47.817 - Spondylosis without myelopathy or radiculopathy, lumbosacral region Category: Medical Plan The plan for managing the patient's chronic back pain includes considering interventional procedures such as radiofrequency ablation or peripheral nerve stimulation. Informational pamphlets were provided to patient. Given the patient's history of osteoporosis, compression fractures and previous kyphoplasty, steroidal injections are contraindicated, and alternative pain management strategies are being explored. The patient will undergo cervical and thoracic spine xrays and diagnostic nerve blocks to assess her candidacy for further interventional procedures. She is advised to remain active post-procedure to evaluate the effectiveness of the nerve blocks. All questions and concerns have been answered and patient agreed with the treatment plan. Follow up for xray results and sooner as needed. Patient was informed and verbally consented to the use of an ambient scribe for clinic note documentation during this visit. Orders: Orders XR thoracic spine 3V Today M40.209 - Unspecified kyphosis, site unspecified, M41.9 - Scoliosis, unspecified, M54.9 - Dorsalgia, unspecified XR cervical spine 3V Today M47.812 - Spondylosis without myelopathy or radiculopathy, cervical region, M96.1 - Postlaminectomy syndrome, not elsewhere classified Coding Level of Care Code New Pt Level 4 (03375) Diagnoses Cervical spondylosis M47.812 Cervical post-laminectomy syndrome M96.1 Scoliosis M41.9 Kyphosis M40.209 Upper back pain M54.9 Chronic back pain M54.9; G89.29 Osteoporosis M81.0 Lumbosacral spondylosis M47.817
[2025-06-06 14:07] VITALS: BP 177/111; PULSE 116; O2SAT 95; BMI 18.7
--- OUTSIDE RECORDS SUMMARY | 2025-06-06 17:54 | XMS_ITS | Encounter Summary ---
Author Organization [facility] Address [address] [facility] [address] [place] [address] Phone Care Team Providers Care Advertising Manager Name Role Phone Frnacisco Mane CNP Primary Care Provider Rodrigue Boyce MD Unavailable [phone] Megan Rosas MD Unavailable [phone] Pcp, Unknown Primary Care Provider Unavailabl e Encounter Details Date Type Department Care Team (Late st Contact Info) Description 04/02/2021 Procedure Pass [facility] PERIOPERATIVE DEPT [address] [place] [id number] Social History Tobacco Use Types Packs/Day Years [...] on filedocumented in this encounter Care Teams Advertising Manager Relationship Specialty Start Date End Date Francisco Mane CNP [address] [facility] [place] [address] [email or web address] PCP - General Family Medicine 07/17/19 03/14/22 Pcp, Unknown PCP - General 03/15/22 Rodrigue Boyce MD [address] [place] [address], [address] [place] [address] [email or web address] Insurance Assigned Provider Internal Medicine 04/03/20 Megan Rosas MD [address] [place] [address], [address] [place] [address] [email or web address] Insurance Assigned Provider 11/22/20 08/21/22 documented as of this encounter Additional Source Comments The information contained in this document represents components of the legal health record. It is not the complete legal health record.[facility]
--- OUTSIDE RECORDS SUMMARY | 2025-06-06 17:54 | XMS_ITS | Clinical Summary ---
Author Organization [employer] Address [address] [place] [address] [address] [place] [address] Care Team Providers Care Medicare Contact Specialist Name Role Phone PcpManny Unassigned Primary Care [...] 3 Active ergocalciferol (Vitamin D-2) 1.25 MG (66906 UT) capsule Take 1 capsule by mouth [...] 07/08/2022 01/04/2022 Dental X-Ray: Bitewings 01/05/2023 01/04/2022 Dental X-Ray: Full Mouth 01/05/2025 01/04/2022 COVID-19 Vaccine (4 - season) 2025 05/27/2021, 11/22/2020, 11/01/2020 Influenza Vaccine (#1) 2025 1, 07/03/2020, 07/17/2019, [...] Recently Relevant to Health Maintenance Insurance [place] [address] [place] [address] [place] [id number] [facility] [place] PPO [place] STAND ADULT Care Teams Medicare Contact Specialist Relationship Specialty Start Date End Date Manny Schultz Unassigned PCP - General Family Medicine 12/13/22
--- OUTSIDE RECORDS SUMMARY | 2025-06-06 17:54 | XMS_ITS | Encounter Summary ---
Author Organization [facility] Address [address] [facility] [address] [place] [address] Phone Care Team Providers Care Executive Producer Promos Name Role Phone Francisco Mane CNP Primary Care Provider Rodrigue Boyce MD Unavailable [phone] Megan Rosas MD Unavailable [phone] Pcp, Unknown Primary Care Provider Unavailabl e Encounter Details Date Type Department Care Team (Late st Contact Info) Description 02/26/2021 Procedure Pass [facility], [address] [address] Social History Tobacco Use Types Packs/Day Years [...] on filedocumented in this encounter Care Teams Executive Producer Promos Relationship Specialty Start Date End Date Francisco Mane CNP [address] [facility] [place], [place] [id number] PCP - General Family Medicine 07/17/19 03/14/22 Pcp, Unknown PCP - General 03/15/22 Rodrigue Boyce MD [address] [place] [address], [address] [place] [address] Insurance Assigned Provider Internal Medicine 04/03/20 Megan Rosas MD [address] [place] [address], [address] [place] [address] [email or web address] Insurance Assigned Provider 11/22/20 08/21/22 documented as of this encounter Additional Source Comments The information contained in this document represents components of the legal health record. It is not the complete legal health record.[facility]
--- OUTSIDE RECORDS SUMMARY | 2025-06-06 17:54 | XMS_ITS | Clinical Summary ---
Author Organization [facility] Address [address] [address] Phone Care Team Providers Care Machine Spreader Name Role Phone Rodrigue Boyce MD Unavailable [phone] Pcp, Unknown Primary Care Provider Unavailabl [...] referral in from her PCP to see [facility] pain clinic. Anxiety and depression 07/17/2019 [...] years but when she transferred over to [facility] this medication did not follow [...] FOBT 1997 SIGMOIDOSCOPY 1997 VIRTUAL COLONOSCOPY 1997 RSV VACCINE (1 - Risk 50-74 years 1-dose series) 2002 ZOSTER VACCINES (1 of 2) 2002 MAMMOGRAM 12/04/2015 12/03/2013 Adult Td,Tdap Booster 08/15/2016 08/15/2006 DEPRESSION SCREENING 07/17/2020 07/17/2019 POTASSIUM LEVEL 09/03/2022 09/03/2021, 03/30/2021 CREATININE LEVEL 09/07/2022 09/07/2021, , 03/30/2021 INFLUENZA VACCINE (#1) 2025 , 05/21/2021, 07/03/2020, Additional history exists COVID-19 VACCINE ( season) 2025 05/27/2021, 11/22/2020, 11/01/2020 LIPID PANEL 02/16/2027 02/16/2022, 0712/2021, 09/03/2021, Additional history exists PNEUMOCOCCAL VACCINES (50+ [...] this topic Medical Devices Implanted Type Area Carbon Sequestration Plant Operator Device Identifier Shelf Expiration Date Model / Serial / Lot Kit Cement Bone Kyphon Xpede Polymethylmethacrylate Mixer - [id number] Implanted:Qty: 1 on 04/02/2021 by Alec Thomas MD at [facility] Bone Cement N/A: Spine Lumbar [employer] SPINE 01/13/2024 [id number] / / [id number] Procedures Procedure Name Priority Date/Time Associated [...] 10:54 AM EST) URINE CREATININE 94 mg/dL [facility] CREATININE OUTPUT 705 600 - 1,800 mg/total output [facility] Urine (Urine) 09/07/2021 10: 54 AM EST 09/07/2021 10:56 AM EST Rodrigue Awad DO URINE ORDERABLES Final Result [address] [address] * (ABNORMAL) Comprehensive metabolic panel (09/03/2021 10:39 AM EST) SODIUM 136 133 - 146 mmol/L [facility] POTASSIUM 4.0 3.3 - 5.1 mmol/L [facility] CHLORIDE 99 96 - 108 mmol/L [facility] CO2 24 21 - 35 mmol/L [facility] BUN 12 6 - 19 mg/dL [facility] CREATININE 0.70 0.5 - 1.5 mg/dL [facility] GLUCOSE 100(H) 70 - 99 mg/dL [facility] ALBUMIN 4.8 3.9 - 4.8 g/dL [facility] TOTAL PROTEIN 7.3 6.5 - 8.0 g/dL [facility] CALCIUM 9.8 8.4 - 10.3 mg/dL [facility] ALKALINE PHOSPHATASE 119(H) 39 - 117 U/L [facility] TOTAL BILIRUBIN 0.4 0.0 - 1.2 mg/dL [facility] AST 17 0 - 37 U/L [facility] ALT 10 0 - 40 U/L [facility] GLOBULIN 2.5 1 - 4.8 g/dL [facility] EGFR 94 >59 mL/min/1.7 3m2 [facility] Comment:Estimated glomerular filtration rate calculated using the CKD-EPI refit equation. ANION GAP 17 10 - 20 mmol/L [facility] Blood 09/03/2021 10:3 9 AM EST 09/03/2021 10:48 AM EST us Francisco Mane [facility] BLOOD ORDERABLES F inal Result Performing Organization Address City/[facility]/ZIP Co de Phone Number [address] [address] * Hepatitis C antibody, qualitative (09/03/2021 10:39 AM EST) HCV NON-REACTIV E NON-REACTI VE [facility] Blood 09/03/2021 10:3 9 AM EST 09/03/2021 10:48 AM EST Francisco Mane [facility] BLOOD ORDERABLES F inal Result Performing Organization Address [facility] de Phone Number [address] [address] * (ABNORMAL) Lipid panel (09/03/2021 10:39 AM EST) HDL 67 mg/dL [facility] Comment: Interpretation <40 mg/dL: Low HDL cholesterol (major risk factor for CHD) Greater than or equal to 60 mg/dL: High HDL cholesterol ( negative risk factor for CHD) HDL - cholesterol is affected by a number of factors, e.g. smoking, excerise, hormones, sex and age. CHOLESTEROL 301(H) 0 - 240 mg/dL [facility] TRIGLYCERIDES 105 30 - 160 mg/dL [facility] LDL 213(H) 50 - 129 mg/dL [facility] Comment: LDL levels in terms of risk for coronary heart disease: <100 mg/dL: Optimal 100-129 mg/dL: Near or above optimal 130-159 mg/dL: Borderline high 160-189 mg/dL: High >190 mg/dL: Very High CARDIAC RISK RATIO 4.5(H) 3.3 - 4.4 C [facility] Blood 09/03/2021 10:3 9 AM EST 09/03/2021 10:48 AM EST us Francisco Camp Mane [facility] BLOOD ORDERABLES F inal Result Performing Organization Address City/[facility]/ZIP Co de Phone Number [address] [address] * BD DXA AXIAL (SPINE) WITH HIP [...] Z scoreis -2.9. IMPRESSION: Osteoporosis. Francisco Mane BIRD TRAPPER IMG BD BONE DENSITY DE XA Final Result * MAMMOGRAPHY FOR RESULT ENTRY ONLY (12/03/2013) Mammogram birads 1 negative Historical Provider HEALTH MAINTENANCE Final Result from Last 3 Months or Most Recently Relevant to Health Maintenance Insurance MEDICARE PART A & B [employer] P[employer] MEDICARE REPLACEMENT MEDICARE PART A & B [facility] HU[employer] PPO MEDICARE REPLACEMENT MEDICARE PART A & B [facility] & [facility] MED[facility] PART A & B [facility] [employer] PPO MEDICARE REPLACEMENT MEDICARE PART A & B [facility] MEDIC[facility] PART A & B [facility] [employer] PPO MEDICARE REPLACEMENT MEDICARE PART A & B [facility] RE[facility] MEDICARE PART A & B [facility] MEDICARE REPLACEMENT [place] [id number] Care Teams Machine Spreader Relationship Specialty Start Date End Date Pcp, Unknown PCP - General 03/15/22 Rodrigue Boyce MD [address] [place] [address], [address] [place], [place] [id number] [email or web address] Insurance Assigned Provider Internal Medicine 04/03/20 Additional Source Comments The information contained in this document represents components of the legal health record. It is not the complete legal health record.[facility]
--- OUTSIDE RECORDS SUMMARY | 2025-06-06 17:54 | XMS_ITS | Encounter Summary ---
Author Organization [facility] Address [address] [facility] [address] [place] [address] Phone Care Team Providers Care Paginator Name Role Phone Francisco Mane CNP Primary Care Provider Rodrigue Boyce MD Unavailable [phone] Megan Rosas MD Unavailable [phone] Pcp, Unknown Primary Care Provider Unavailabl e Encounter Details Date Type Department Care Team (Late st Contact Info) Description 03/20/2021 Procedure Pass [facility] Imaging - Peripoerative Interventional Radiology [address] [facility] 4th [place] [address] Social History Tobacco Use Types Packs/Day Years [...] on filedocumented in this encounter Care Teams Paginator Relationship Specialty Start Date End Date Francisco Mane CNP [address] [facility], [address] [place] [address] PCP - General Family Medicine 07/17/19 03/14/22 Pcp, Unknown PCP - General 03/15/22 Rodrigue Boyce MD [address] [facility], [address] [place] [address] Insurance Assigned Provider Internal Medicine 04/03/20 Megan Rosas MD [address] [facility], [address] [place] [address] [email or web address] Insurance Assigned Provider 11/22/20 08/21/22 documented as of this encounter Additional Source Comments The information contained in this document represents components of the legal health record. It is not the complete legal health record.[facility]
--- OUTSIDE RECORDS SUMMARY | 2025-06-06 17:54 | XMS_ITS | Encounter Summary ---
Author Organization [facility] Address [address] [facility] [address] [place] [address] Phone Care Team Providers Care Agricultural Commodities Inspector Name Role Phone Francisco Mane CNP Primary Care Provider Rodrigue Boyce MD Unavailable [phone] Megan Rosas MD Unavailable [phone] Pcp, Unknown Primary Care Provider Unavailabl e Encounter Details Date Type Department Care Team (Late st Contact Info) Description 02/27/2021 Procedure Pass [facility], [address] [address] Social History Tobacco Use Types Packs/Day Years [...] on filedocumented in this encounter Care Teams Agricultural Commodities Inspector Relationship Specialty Start Date End Date Francisco Mane CNP [address] [facility], [address] [place], [place] [id number] PCP - General Family Medicine 07/17/19 03/14/22 Pcp, Unknown PCP - General 03/15/22 Rodrigue Boyce MD [address] [place] [address], [address] [place] [address] Insurance Assigned Provider Internal Medicine 04/03/20 Megan Rosas MD [address] [place] [address], [address] [place] [address] Insurance Assigned Provider 11/22/20 08/21/22 documented as of this encounter Additional Source Comments The information contained in this document represents components of the legal health record. It is not the complete legal health record.[facility]
== END 2025-06-06 14:37 | disposition home or self-care (01) ==
LOC: HO.PMC 14:03
PROVIDERS: Visit Provider Nurse Practitioner Family
DX: M47.812 Spondylosis without myelopathy or radiculopathy, cervical region (principal); M96.1 Postlaminectomy syndrome, not elsewhere classified; M41.9 Scoliosis, unspecified; M40.209 Unspecified kyphosis, site unspecified; M54.9 Dorsalgia, unspecified; G89.29 Other chronic pain; M81.0 Age-related osteoporosis without current pathological fracture; M47.817 Spondylosis without myelopathy or radiculopathy, lumbosacral region
CPT/HCPCS: 99204

== ENCOUNTER 2025-06-06 14:03 | Outpatient (REF) | payer MEDICARE, SELFPAY ==
--- NOTE | ~2025-06-06 | XR_ITS ---
EXAMINATION: XR THORACIC SPINE CLINICAL INFORMATION: M40.209 - Unspecified kyphosis, site unspecified COMPARISON: None available. TECHNIQUE: 3 views of the thoracic spine were obtained. FINDINGS: There is diffuse osteopenia limiting evaluation of the vertebral bodies. Anterior plate and screws fuse C4-C5-C6. There is 56 degrees dextroscoliosis of the mid and upper thoracic spine and 27 degrees levoscoliosis of the thoracolumbar junction. There is hyperkyphosis of the upper thoracic spine. There is methacrylate within the L1 vertebral body. There are numerous compression fractures that are not well demonstrated due to the degree of osteopenia. XR/XR thoracic spine 3V IMPRESSION: Severe scoliosis and hyperkyphosis. Diffuse osteopenia limits evaluation of numerous compression fractures. Electronically signed by: Ajay Vera MD 06/06/2025 03:35 PM EDT
--- NOTE | ~2025-06-06 | XR_ITS ---
EXAMINATION: XR CERVICAL SPINE CLINICAL INFORMATION: M47.812 - Spondylosis without myelopathy or radiculopathy, cervical region COMPARISON: None available. TECHNIQUE: 3 views of the cervical spine were obtained. FINDINGS: Increased cervical kyphosis. Postsurgical changes from ACDF from C4 to C6. Surgical hardware appears intact. There appears to be bony ankylosis at the C4-5 and C5-6 disc spaces. Degenerative spondylosis and degenerative disc disease at C3-4. C7 vertebral body not visualized. Multilevel facet arthritis. Degenerative changes of the C1 dens articulation. Prevertebral soft tissues are normal. Severe scoliosis of the proximal thoracic spine with curvature to the right. There may be ectasia of the thoracic aorta. XR/XR cervical spine 3V IMPRESSION: Limited exam. Post ACDF from C4 to C6. Degenerative changes. Electronically signed by: Earlene Loaiza MD 06/06/2025 03:36 PM EDT
== END 2025-06-06 14:04 | disposition home or self-care (01) ==
LOC: HO.XRAY 14:03
PROVIDERS: Visit Provider Nurse Practitioner Family
DX: G89.29 Other chronic pain (principal); M47.812 Spondylosis without myelopathy or radiculopathy, cervical region; M96.1 Postlaminectomy syndrome, not elsewhere classified; M41.9 Scoliosis, unspecified; M54.9 Dorsalgia, unspecified; M47.817 Spondylosis without myelopathy or radiculopathy, lumbosacral region; M81.0 Age-related osteoporosis without current pathological fracture; Z13.29 Encounter for screening for other suspected endocrine disorder; Z13.1 Encounter for screening for diabetes mellitus; Z13.6 Encounter for screening for cardiovascular disorders
CPT/HCPCS: 36415; 72040; 72072; 80053; 80061; 82306; 82607; 82746; 83036; 84443; 85025; 99202

== ENCOUNTER → 2025-06-06 14:48 | Outpatient (BNV) | payer MEDICARE, SELFPAY | PROVIDERS: Visit Provider Radiology Diagnostic Radiology | DX: M40.204 Unspecified kyphosis, thoracic region (principal); M85.88 Other specified disorders of bone density and structure, other site; M47.812 Spondylosis without myelopathy or radiculopathy, cervical region; M50.30 Other cervical disc degeneration, unspecified cervical region | CPT/HCPCS: 72040; 72072 ==

== ENCOUNTER 2025-06-06 15:43 | Outpatient (REF) | payer MEDICARE, SELFPAY ==
[2025-06-06 17:56] LABS: MANUAL DIFF FLAG NO
[2025-06-06 17:59] LABS: Hematocrit 51.5 % (37.0-47.0); Hemoglobin 17.5 g/dl (12.0-16.0); Imm Gran Abs Auto 0.02 X10*3/uL (0.00-0.03); Imm Gran Pct Auto 0.3 % (0.0-0.4); Lymphocytes Absolute Auto 1.5 X10*3/uL (1.2-4.9); Mean Corpuscular HGB Conc 34.0 g/dl (31.0-35.0); Mean Corpuscular Hemoglobin 32.5 pg (27.0-33.0); Mean Corpuscular Volume 95.5 fL (80.0-98.0); NRBC Abs Auto 0.000 X10*3/uL (0.0-0.012); NRBC Pct Auto 0.0 /100WBC (0.0-0.2); Platelet Count 240 X10*3/uL (160-400); Red Blood Count 5.39 X10*6/uL (4.20-5.50); White Blood Count 6.6 X10*3/uL (4.8-10.8)
[2025-06-06 18:54] LABS: Alanine Aminotransferase 8 U/L (0-31); Albumin Level 4.4 g/dL (3.5-5.0); Alkaline Phosphatase 121 U/L (39-117); Anion Gap 17 (12-20); Aspartate Amino Transferase 19 U/L (5-31); Blood Urea Nitrogen 6 mg/dL (9-16); Calcium 9.7 mg/dL (8.4-10.2); Carbon Dioxide 27 mmol/L (22-29); Chloride 98 mmol/L (96-108); Cholesterol 239 mg/dL (<200); Estimated Glomerular Filt Rate > 60; HDL Cholesterol 99 mg/dL (>40); Potassium 3.8 mmol/L (3.3-5.1); Sodium 138 mmol/L (135-145); Total Protein 6.8 g/dL (6.5-8.0); Triglycerides 88 mg/dL (<150)
[2025-06-06 19:19] LABS: Folate 7.5 ng/mL (> or = 4.0); Vitamin B12 304 pg/mL (200-900)
== END 2025-06-06 15:44 | disposition home or self-care (01) ==
LOC: HO.WFDLDS 15:43
DX: Z13.89 Encounter for screening for other disorder (principal)
CPT/HCPCS: 36415; 80053; 80061; 82306; 82607; 82746; 83036; 84443; 85025

== ENCOUNTER 2025-06-19 13:25 | Outpatient (REF) | payer MEDICARE, SELFPAY ==
[2025-06-19 18:16] LABS: MANUAL DIFF FLAG NO
[2025-06-19 18:41] LABS: Hematocrit 51.3 % (37.0-47.0); Hemoglobin 17.4 g/dl (12.0-16.0); Imm Gran Abs Auto 0.01 X10*3/uL (0.00-0.03); Imm Gran Pct Auto 0.1 % (0.0-0.4); Lymphocytes Absolute Auto 1.9 X10*3/uL (1.2-4.9); Mean Corpuscular HGB Conc 33.9 g/dl (31.0-35.0); Mean Corpuscular Hemoglobin 32.5 pg (27.0-33.0); Mean Corpuscular Volume 95.9 fL (80.0-98.0); NRBC Abs Auto 0.000 X10*3/uL (0.0-0.012); NRBC Pct Auto 0.0 /100WBC (0.0-0.2); Platelet Count 264 X10*3/uL (160-400); Red Blood Count 5.35 X10*6/uL (4.20-5.50); White Blood Count 6.9 X10*3/uL (4.8-10.8)
== END 2025-06-19 13:26 | disposition home or self-care (01) ==
LOC: HO.WFDLDS 13:25
PROVIDERS: Visit Provider Nurse Practitioner Family
DX: J43.9 Emphysema, unspecified (principal); F17.210 Nicotine dependence, cigarettes, uncomplicated; R09.02 Hypoxemia; D58.2 Other hemoglobinopathies
CPT/HCPCS: 36415; 85025; 94618; 99202

== ENCOUNTER 2025-06-19 13:25 | Outpatient (AMB) | payer MEDICARE, SELFPAY ==
--- NOTE | 2025-06-19 13:37 | A.OFFVIS_ITS ---
Vital Signs 06/19/25 13:38 Height 5 ft Weight 90 lb 4 oz BMI 17.6 BP 158/96 H Blood Pressure Location Rt brachial Position Sitting Pulse 92 Pulse Source Pulse Oximeter Pulse Oximetry (%) 94 Oxygen Delivery Method Room Air Intake Visit Reasons: emphysema Allergies alendronate sodium (From Fosamax) Allergy (Mild, Verified 06/19/25 13:42) Hives HPI HPI emphysema: Details: Iram is a pleasant 74 year old female, current 40 pack year smoker, with underlying COPD and emphysema. Today she is accompanied by her . She was referred by PCP for pulmonary evaluation. She was previously under the care of [facility] and switching to this office due to location. She reports undergoing PFT years ago and is not interested in repeating, does not recall severity of COPD. Chest CT 2022 revealed moderate emphysema otherwise no concerning pulmonary nodules. She has been using Albuterol MDI with suboptimal control, continues with wheezing, dyspnea on exertion. Denies cough. Previously on Trelegy with good effect. She continues to smoke 5 cigarettes per day, attempted Chantix but discontinued as she could not tolerate, interested in cessation. She previously required supplemental oxygen upon discharge from [facility] 2-3 years ago postoperatively and has since discontinued. She is questioning need for supplemental oxygen. She denies h/o recurrent URI or exacerbations. 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 She denies seasonal allergies. 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 (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) Patient Tobacco Use Status: Current someday Tobacco user Tobacco use type: Cigarette Cigarette Packs Per Day: 0.25 Cigarettes Per Day: 5 e-Cigarette/Vaping Use: Never Used Second Hand Smoke Exposure: No service: No Current occupational status: retired and disabled Current occupational exposures/hazards: No Cognitive needs: No Hearing needs: No Vision needs: No Review of Systems Const Denies chills, Denies excessive sweating, Denies fever(s), Denies headache(s) and Denies night sweats Eyes Denies dry eyes, Denies irritation and Denies itchy eyes ENT Reports Normal hearing present, Denies headache(s), Denies nasal congestion, Denies nasal discharge, Denies post nasal drip and Denies sore throat Card Denies chest pain, Denies chest pain at rest, Denies chest pain with activity, Denies claudication, Denies leg edema, Denies orthopnea and Denies paroxysmal nocturnal dyspnea Resp Denies chest congestion, Denies cough, Denies excessive phlegm production, Denies pain on inspiration, Denies pain with cough and Denies stridor Musc Denies myalgias Neuro Reports Normal hearing present and Denies headache(s) Endo Denies excessive sweating Jae/Lymph Denies lymphadenopathy Aller/Immun Denies itchy eyes and Denies seasonal rhinorrhea Physical Exam Vital Signs: Last Vital Signs Pulse 92 06/19/25 13:38 BP 158/96 H 06/19/25 13:38 Pulse Ox 94 06/19/25 13:38 Oxygen Delivery Method Room Air 06/19/25 13:38 BMI result Body Mass Index 17.6 Const General: cooperative, comfortable, no acute distress, well developed and alert Nutritional Appearance: thin Orientation/consciousness: patient oriented x3 Limitations: ambulation with cane HEENT Head: Yes normal to inspection, Yes normocephalic and Yes atraumatic Ears: hearing grossly normal bilaterally and external ears normal Eyes General: appearance normal, both eyes and all related structures Eyelids: Yes eyelids normal Sclerae: sclerae normal EOM: EOMs intact bilaterally Neck Neck: Yes normal visual inspection and Yes no lymphadenopathy Lymphatic: no lymphadenopathy noted Chest Chest palpation & inspection: normal inspection of the chest Resp Effort & Inspection: normal respiratory effort, able to speak in complete sentences, no audible wheezes, no cough, no stridor, not tachypneic, no tripod positioning, no use of accessory muscles and prolonged expiratory phase Auscultation: diminished lung sounds Cardio Jugular venous distension: no JVD Rate: regular rate Rhythm: regular rhythm Skin Other: warm, dry General skin exam: no rashes or lesions noted Neuro General: patient oriented x3 Cranial nerves: Yes Normal hearing present Cognition (Neuro): normal cognition Gait exam (Neuro): Normal gait present Extrem General: Yes normal to inspection, Yes capillary refill normal, Yes no clubbing, cyanosis or edema and Yes no pedal edema Psych Appearance: grossly normal and well kempt Speech and movement: Normal speech and movement present and Clear speech present Affect: normal affect Attitude: cooperative Thought process: Normal thought process present Thought content: Normal thought content present Insight: Good insight present (Psych) Judgement: Good judgement present (Psych) Office Procedures 6 Minute Walk Time:: 14:15 SPO2 % at rest: 93 Pulse at rest: 91 SPO2 % during excercise: 84 Pulse during excercise: 99 SPO2 % after excercise: 96 Pulse after excercise: 98 Distance in yards walked: 50 Performance Observations:: Patient walked on level ground using a walker. Patient walked 10 steps and O2 saturation dropped to 84% with pulse of 99..O2 applied at 1L via nasal cannula. After just a few more steps dropped to 88%..O2 increased to 2L. O2 sat recovered to 93%. Walked approx 15 yards and O2 sats dropped to 87%, O2 increased to 3L with saturation returned to 91%. Continued walk for additional 20 yards and patient required the use of O2 at 4L to maintain O2 sat above 88% while walking. Pulse rate during the walk was between 91 and 112. [address] - 6 Minute Walk Results Reviewed Results Reviewed: RESULT: CT Chest W/O Contrast CT Chest W/O Contrast INDICATION/CLINICAL QUESTION: Aneurysm; COMPARISON: 11/11/2020. TECHNIQUE: Helical CT scan of the chest without IV contrast, formatted in 3 planes. Weight-based protocol was performed using automatic exposure control. CTDIvol Body: 6.92 mGy, DLP Body: 248 mGy*cm. FINDINGS: RN BIRTHING VIEW FINDINGS, LINES AND TUBES: There is a severe convex rightward scoliotic curvature. Partially included postoperative change in the lower cervical spine. TRACHEA AND MAIN BRONCHI: Patent without evidence of tracheal or endobronchial lesion. LUNGS AND PLEURA: Moderately hyperexpanded and clear with moderate emphysematous changes similar to previous examination. No new or suspicious appearing pulmonary nodules. AORTA: Unchanged borderline fusiform aneurysmal dilatation of the ascending thoracic aorta measuring up to 4.3 cm at the level of the main pulmonary artery. MEDIASTINUM and DOMINIQUE: No hematoma, mass or adenopathy. Normal heart size with severe coronary atherosclerotic calcifications. No pericardial effusion. No esophageal abnormalities. CHEST WALL SOFT TISSUES: Unremarkable. DIAPHRAGM AND UPPER ABDOMEN: Unremarkable. BONES: No acute abnormalities, no suspicious osseous lesions. There is a severe convex rightward thoracic curvature similar to previous. There is a single level vertebroplasty at the L1 level with mild unchanged chronic central compression deformities of the T11 and T12 vertebral bodies. IMPRESSION: Unchanged. WSN: [id number] Ordering Physician: Riaz Pardo Reason For Exam Aneurysm Signature Line Dictated By: Teddy Sahu MD Dictated Date/Time: 03/04/23 11:39 a Reviewed By: Teddy Sahu MD Signed By: Teddy Sahu MD Signed Date/Time: 03/04/23 11:39 am Transcribed By: TAMIE Assessment & Plan Assessment & Plan (1) COPD with emphysema: Code(s): J43.9 - Emphysema, unspecified Category: Medical (2) Smoker: Code(s): F17.200 - Nicotine dependence, unspecified, uncomplicated Category: Social Hx (3) Hypoxia: Code(s): R09.02 - Hypoxemia Category: Medical Plan Iram presents for pulmonary evaluation with known history of COPD, unknown severity likely severe. She previously underwent PFT at [facility], will attempt to obtain, as she declines repeating. Will restart Trelegy in addition to Albuterol MDI PRN, as patient had benefit in the past. 6MWT performed and patient required 4L of supplemental oxygen with exertion, desatting to 84% however recovered quickly. Will send order for 4L with exertion to maintain oxygen saturation >90%. Discussed with patient and in great detail regarding the dangers of supplemental of oxygen and smoking, which they verbalized understanding. Will send for overnight oximetry on room air to assess need for supplemental oxygen at [facility]. Smoking cessation reviewed and patient attempted Chantix which resulted in emesis therefore discontinued. She was agreeable to NRT, will send. Given smoking history patient and significant hypoxia, will send for chest CT now and enroll in lung screening program for further surveillance. All questions were answered and patient is in agreement of plan. Will follow up in 6-8 weeks or sooner if needed. Orders: Orders Overnight Pulse Oximetry Today J43.9 - Emphysema, unspecified AMB 6 minute walk 06/19/25 J43.9 - Emphysema, unspecified CT chest wo IV con Today R09.02 - Hypoxemia Medications: New volnfatwbsv-ktroczbzx-gxncicgy 100-62.5-25 mcg (Trelegy Ellipta) 1 inh inhalation DAILY 60 ea 3RF nicotine 1 patch transdermal Q24H 14 ea 0RF Coding Level of Care Code New Pt Level 4 (81068) Complex EM visit Add On G2211 Diagnoses COPD with emphysema J43.9 Smoker F17.200 Hypoxia R09.02 CPT Codes Coding ([id number])
[2025-06-19 13:38] VITALS: BP 158/96; PULSE 92; O2SAT 94; BMI 17.6
[2025-06-19 14:51] VITALS: PULSE 91; O2SAT 93
--- OUTSIDE RECORDS SUMMARY | 2025-06-19 16:21 | XMS_ITS | Encounter Summary ---
Author Organization [facility] Address [address] [facility] [address] [place] [address] Phone Care Team Providers Care Juvenile Justice Specialist Name Role Phone Francisco Mane CNP Primary Care Provider Rodrigue Boyce MD Unavailable [phone] Megan Rosas MD Unavailable [phone] Pcp, Unknown Primary Care Provider Unavailabl e Encounter Details Date Type Department Care Team (Late st Contact Info) Description 03/20/2021 Procedure Pass [facility] Imaging - Peripoerative Interventional Radiology [address] [facility], 4th [place] [address] Social History Tobacco Use Types Packs/Day Years [...] on filedocumented in this encounter Care Teams Juvenile Justice Specialist Relationship Specialty Start Date End Date Francisco Mane CNP [address] [facility], [address] [place] [address] PCP - General Family Medicine 07/17/19 03/14/22 Pcp, Unknown PCP - General 03/15/22 Rodrigue Boyce MD [address] [facility] [place] [address] Insurance Assigned Provider Internal Medicine 04/03/20 Megan Rosas MD [address] [facility] [place] [address] [email or web address] Insurance Assigned Provider 11/22/20 08/21/22 documented as of this encounter Additional Source Comments The information contained in this document represents components of the legal health record. It is not the complete legal health record.[facility]
--- OUTSIDE RECORDS SUMMARY | 2025-06-19 16:21 | XMS_ITS | Encounter Summary ---
Author Organization [facility] Address [address] [facility] [address] [place] [address] Phone Care Team Providers Care Ship'S Master Name Role Phone Francisco Mane CNP Primary Care Provider Rodrigue Boyce MD Unavailable [phone] Megan Rosas MD Unavailable [phone] Pcp, Unknown Primary Care Provider Unavailabl e Encounter Details Date Type Department Care Team (Late st Contact Info) Description 02/26/2021 Procedure Pass [facility], [address] [address] Social History Tobacco Use Types Packs/Day Years [...] on filedocumented in this encounter Care Teams Ship'S Master Relationship Specialty Start Date End Date Francisco Mane CNP [address] [facility] [place], [place] [id number] PCP - General Family Medicine 07/17/19 03/14/22 Pcp, Unknown PCP - General 03/15/22 Rodrigue Boyce MD [address] [place] [address], [address] [place] [address] Insurance Assigned Provider Internal Medicine 04/03/20 Megan Rosas MD [address] [place] [address], [address] [place] [address] [email or web address] Insurance Assigned Provider 11/22/20 08/21/22 documented as of this encounter Additional Source Comments The information contained in this document represents components of the legal health record. It is not the complete legal health record.[facility]
--- OUTSIDE RECORDS SUMMARY | 2025-06-19 16:21 | XMS_ITS | Clinical Summary ---
Author Organization [employer] Address [address] [place] [address] 7 [place] [address] Care Team Providers Care Wire Harness Design Engineer Name Role Phone PcpManny Unassigned Primary Care [...] 3 Active ergocalciferol (Vitamin D-2) 1.25 MG (28364 UT) capsule Take 1 capsule by mouth [...] Care Team (Late st Contact Info) Description 07/08/2025 2:30 PM EST Office Visit [facility] OPTOMETRY [address] [place] [address] Lianna Crandall, OD [address] [place] [address] Health Maintenance Due Date Last Done Comments [...] X-Ray: Full Mouth 01/05/2025 01/04/2022 COVID-19 Vaccine ( season) 2025 05/27/2021, 11/22/2020, 11/01/2020 Influenza Vaccine (#1) 2025 , 07/03/2020, 07/17/2019, Additional history exists Pneumococcal Vaccine: [...] Recently Relevant to Health Maintenance Insurance MEDICARE [facility] STANDARD HU[employer] PPO DENTAL-[facility] MEDICAID STAND ADULT Care Teams Wire Harness Design Engineer Relationship Specialty Start Date End Date Manny Schultz Unassigned PCP - General Family Medicine 12/13/22
--- OUTSIDE RECORDS SUMMARY | 2025-06-19 16:21 | XMS_ITS | Encounter Summary ---
Author Organization [facility] Address [address] [facility] [address] [place] [address] Phone Care Team Providers Care Stoner Hand Name Role Phone Francisco Mane CNP Primary Care Provider Rodrigue Boyce MD Unavailable [phone] Megan Rosas MD Unavailable [phone] Pcp, Unknown Primary Care Provider Unavailabl e Encounter Details Date Type Department Care Team (Late st Contact Info) Description 02/27/2021 Procedure Pass [facility], [address] [address] Social History Tobacco Use Types Packs/Day Years [...] on filedocumented in this encounter Care Teams Stoner Hand Relationship Specialty Start Date End Date Francisco Mane CNP [address] [facility], [address] [place], [place] [id number] PCP - General Family Medicine 07/17/19 03/14/22 Pcp, Unknown PCP - General 03/15/22 Rodrigue Boyce MD [address] [place] [address], [address] [place] [address] Insurance Assigned Provider Internal Medicine 04/03/20 Megan Rosas MD [address] [place] [address], [address] [place] [address] [email or web address] Insurance Assigned Provider 11/22/20 08/21/22 documented as of this encounter Additional Source Comments The information contained in this document represents components of the legal health record. It is not the complete legal health record.[facility]
--- OUTSIDE RECORDS SUMMARY | 2025-06-19 16:21 | XMS_ITS | Encounter Summary ---
Author Organization [facility] Address [address] [facility] [address] [place] [address] Phone Care Team Providers Care Manager Entry Name Role Phone Francisco Mane CNP Primary Care Provider Rodrigue Boyce MD Unavailable [phone] Megan Rosas MD Unavailable [phone] Pcp, Unknown Primary Care Provider Unavailabl e Encounter Details Date Type Department Care Team (Late st Contact Info) Description 04/02/2021 Procedure Pass [facility] [address] [place] [id number] Social History Tobacco Use Types Packs/Day Years [...] filedocumented in this encounter Care Teams Manager Entry Relationship Specialty Start Date End Date Francisco Mane CNP [address] [facility], [address] [place] [address] [email or web address] PCP - General Family Medicine 07/17/19 03/14/22 Pcp, Unknown PCP - General 03/15/22 Rodrigue Boyce MD [address] [place] [address], [address] [place] [address] [email or web address] Insurance Assigned Provider Internal Medicine 04/03/20 Megan Rosas MD [address] [place] [address], [address] [place] [address] [email or web address] Insurance Assigned Provider 11/22/20 08/21/22 documented as of this encounter Additional Source Comments The information contained in this document represents components of the legal health record. It is not the complete legal health record.[facility]
--- OUTSIDE RECORDS SUMMARY | 2025-06-19 16:21 | XMS_ITS | Clinical Summary ---
Author Organization [facility] Address [address] [address] Phone Care Team Providers Care Practice Clinician Name Role Phone Rodrigue Boyce MD Unavailable [phone] Pcp, Unknown Primary Care Provider Unavailabl [...] referral in from her PCP to see [facility] pain clinic. Anxiety and depression 07/17/2019 Chronic, [...] years but when she transferred over to [facility] this medication did not follow [...] this topic Medical Devices Implanted Type Area Brick Tosser Device Identifier Shelf Expiration Date Model / Serial / Lot Kit Cement Bone Kyphon Xpede Polymethylmethacrylate Mixer - [id number] Implanted:Qty: 1 on 04/02/2021 by Alec Thomas MD at [facility] Bone Cement N/A: Spine Lumbar [employer] 01/13/2024 [id number] / [id number] Procedures Procedure Name Priority Date/Time Associated Diagnosis Comments CREATININE, 24 HR URINE Routine 09/07/2021 10:54 AM EST Age-related osteoporosis without current pathological fracture LIPID PANEL Routine 09/03/2021 10:39 AM EST Screening, lipid HEPATITIS C ANTIBODY, QUALITATIVE Routine 09/03/2021 10:39 AM EST Need for hepatitis C screening test COMPREHENSIVE METABOLIC PANEL (CMP) Routine 09/03/2021 10:39 AM EST Hyponatremia BD DXA AXIAL (SPINE) WITH HIP Routine 07/22/2021 3:36 PM EST Age-related osteoporosis without current pathological fracture HM MAMMOGRAPHY Routine 12/03/2013 from Last 3 Months or Most Recently Relevant to Health Maintenance Results * Creatinine, 24 hr urine (09/07/2021 10:54 AM EST) URINE CREATININE 94 mg/dL [facility] CREATININE OUTPUT 705 600 - 1,800 mg/total output [facility] Urine (Urine) 09/07/2021 10: 54 AM EST 09/07/2021 10:56 AM EST Rodrigue Awad DO LAB URINE ORDERABLES Final Resul t [facility] [address] [place] [address] * (ABNORMAL) Comprehensive metabolic panel (09/03/2021 10:39 AM EST) SODIUM 136 133 - 146 mmol/L [facility] POTASSIUM 4.0 3.3 - 5.1 mmol/L [facility] CHLORIDE 99 96 - 108 mmol/L [facility] CO2 24 21 - 35 mmol/L [facility] BUN 12 6 - 19 mg/dL [facility] CREATININE 0.70 0.5 - 1.5 mg/dL [facility] GLUCOSE 100(H) 70 - 99 mg/dL [facility] ALBUMIN 4.8 3.9 - 4.8 g/dL [facility] TOTAL PROTEIN 7.3 6.5 - 8.0 g/dL [facility] CALCIUM 9.8 8.4 - 10.3 mg/dL [facility] ALKALINE PHOSPHATASE 119(H) 39 - 117 U/L [facility] TOTAL BILIRUBIN 0.4 0.0 - 1.2 mg/dL [facility] AST 17 0 - 37 U/L [facility] ALT 10 0 - 40 U/L [facility] GLOBULIN 2.5 1 - 4.8 g/dL [facility] EGFR 94 >59 mL/min/1.7 3m2 [facility] Comment:Estimated glomerular filtration rate calculated using the CKD-EPI refit equation. ANION GAP 17 10 - 20 mmol/L [facility] Blood 09/03/2021 10:3 9 AM EST 09/03/2021 10:48 AM EST Francisco Mane [facility] LAB BLOOD BKR ORDERABL ES Final Result Performing Organization Address City/[facility]/ZIP Co de Phone Number [address] [address] * Hepatitis C antibody, qualitative (09/03/2021 10:39 AM EST) HCV NON-REACTIV E NON-REACTI VE [facility] Blood 09/03/2021 10:3 9 AM EST 09/03/2021 10:48 AM EST Francisco Mane [facility] LAB BLOOD BKR ORDERABL ES Final Result Performing Organization Address [facility] de Phone Number [address] [address] * (ABNORMAL) Lipid panel (09/03/2021 10:39 AM EST) HDL 67 mg/dL [facility] Comment: Interpretation <40 mg/dL: Low HDL cholesterol (major risk factor for CHD) Greater than or equal to 60 mg/dL: High HDL cholesterol ( negative risk factor for CHD) HDL - cholesterol is affected by a number of factors, e.g. smoking, excerise, hormones, sex and age. CHOLESTEROL 301(H) 0 - 240 mg/dL [facility] TRIGLYCERIDES 105 30 - 160 mg/dL [facility] LDL 213(H) 50 - 129 mg/dL [facility] Comment: LDL levels in terms of risk for coronary heart disease: <100 mg/dL: Optimal 100-129 mg/dL: Near or above optimal 130-159 mg/dL: Borderline high 160-189 mg/dL: High >190 mg/dL: Very High CARDIAC RISK RATIO 4.5(H) 3.3 - 4.4 C [facility] Blood 09/03/2021 10:3 9 AM EST 09/03/2021 10:48 AM EST Francisco Mane [facility] LAB BLOOD BKR ORDERABL ES Final Result [facility] [address] [place] [address] * BD DXA AXIAL (SPINE) WITH HIP [...] Z scoreis -2.9. IMPRESSION: Osteoporosis. Francisco Mane REAL ESTATE AGENT IMG BD BONE DENSITY DE XA Final Result * MAMMOGRAPHY FOR RESULT ENTRY ONLY (12/03/2013) Mammogram birads 1 negative Historical Provider MD HEALTH MAINTENANCE Final Result from Last 3 Months or Most Recently Relevant to Health Maintenance Insurance MEDICARE PART A & B [facility] HUMANA PPO MEDICARE REPLACEMENT MEDICARE PART A & B [facility] HU[place] PPO MEDICARE REPLACEMENT MEDICARE PART A & B [place] [facility] [employer] PPO MEDICARE REPLACEMENT MEDICARE PART A & B [facility] & [facility] HU[place]NA PPO MEDICARE REPLACEMENT MEDICARE PART A & B [facility] [employer] PPO MEDICARE REPLACEMENT MEDICARE PART A & B [facility] HU[employer]NA PPO MEDICARE REPLACEMENT Care Teams Practice Clinician Relationship Specialty Start Date End Date Pcp, Unknown PCP - General 03/15/22 Rodrigue Boyce MD [address] [place] [address], [address] [place] [address] [email or web address] Insurance Assigned Provider Internal Medicine 04/03/20 Additional Source Comments The information contained in this document represents components of the legal health record. It is not the complete legal health record.[facility]
== END 2025-06-19 14:30 | disposition home or self-care (01) ==
LOC: HO.HPSW 13:26
PROVIDERS: Visit Provider Nurse Practitioner Family
DX: J43.9 Emphysema, unspecified (principal); F17.200 Nicotine dependence, unspecified, uncomplicated; R09.02 Hypoxemia
CPT/HCPCS: 99204; G2211

== ENCOUNTER → 2025-07-24 10:56 | Outpatient (BNV) | payer MEDICARE, MEDICAID, SELFPAY | PROVIDERS: Visit Provider Internal Medicine | DX: D75.1 Secondary polycythemia (principal) | CPT/HCPCS: 99204 ==

== ENCOUNTER 2025-07-30 13:55 | Outpatient (AMB) | payer MEDICARE, MEDICAID, SELFPAY ==
--- NOTE | 2025-07-30 14:00 | MHC.PC.OV ---
Vital Signs 07/30/25 14:01 Height 5 ft Weight 90 lb 6 oz BMI 17.6 BP 130/96 H Respiration 14 Pulse 84 Pulse Source Pulse Oximeter Temp 97.1 F Temp Source Temporal Artery Scan Pulse Oximetry (%) 92 Intake Visit Reasons: f/u chronic pain Guest Experience Manager Required: No Accompanied by: Self / Same As Patient Allergies alendronate sodium (From Fosamax) Allergy (Mild, Verified 07/30/25 14:11) Hives Medication List - Last Reconciled 07/30/25 by Ladan Morin PA-C acyclovir 400 mg PO DAILY albuterol sulfate 90 mcg/actuation (Ventolin HFA) 2 puffs inhalation Q4-6H PRN 30 days alendronate 70 mg PO QWEEK 28 days cetirizine 10 mg PO DAILY PRN 90 days cholecalciferol (vitamin D3) 50 mcg PO DAILY 90 days diaper,brief,adult,disposable 4 times a day, As directed, 30 days diclofenac sodium 1% (Arthritis Pain (diclofenac)) 4 grams topical QID 30 days srlcuokzthm-mkmczhqih-mkkqxvet 100-62.5-25 mcg (Trelegy Ellipta) 1 inh inhalation DAILY gabapentin 1-2 caps p.o. q.i.d. orally 4 times a day; 30 days lidocaine 5% 1 patch topical DAILY 30 days lisinopril 20 mg PO DAILY 90 days miscellaneous medical supply Motorized?scooter,?As directed, 999 days miscellaneous medical supply Wheelchair. As directed, 999 days naloxone 4 mg/actuation (Narcan) 4 mg intranasal Q3M PRN nicotine 1 patch transdermal Q24H oxybutynin chloride 5 mg PO TID 30 days oxycodone-acetaminophen 5-325 mg (Percocet) 1 tab PO Q12H PRN 30 days trazodone 150 mg (1.5 x 100 mg) PO BEDTIME walker Lightweight walker daily?As directed, 999 days Tobacco use date assessed: 04/16/25 Dental Screening Dental Screen Date: 04/16/25 HPI f/u chronic pain HPI Details 74-year-old female with past medical history of osteoporosis, COPD, ascending aorta dilation, chronic back pain, anxiety and depression, elevated sugar levels, elevated LDL last seen 04/2025 coming in for follow up. In review of the notes, patient was seen by pulm 06/2025 CT chest ordered as well as overnight oximetry. Seen by pain management 05/2025 imaging ordered and consideration was made for intervention. Seen by heme 07/2025 encouraged to quit smoking and take ASA follow up in 3 months. Presenting for management of multiple chronic conditions. For COPD, she has a follow-up with pulmonology on the and has a pending CAT scan and overnight oximetry test. She continues to smoke but has cut down using the patch after discontinuing Chantix due to side effects. She saw pain management, which ordered imaging, but she has not heard back, and expressed she is not interested in invasive procedures or surgery for her pain. She has a history of osteoporosis and finds it difficult to remember to take alendronate. The patient has experienced significant weight loss, dropping from 110 lbs to 90 lbs, since her oral surgery last October due to difficulty eating with her dentures, which she believes is related to bone shrinkage. 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) Patient Tobacco Use Status: Current someday Tobacco user Tobacco use type: Cigarette Cigarette Packs Per Day: 0.25 e-Cigarette/Vaping Use: Never Used Second Hand Smoke Exposure: No service: No Current occupational status: retired and disabled Current occupational exposures/hazards: No Cognitive needs: No Hearing needs: No Vision needs: No Questionnaire Thrive Questionnaire Date Thrive assessed: 08/23/24 I am a: Patient What is your living situation today?: I have a steady place to live Within the past 12 months, did the food you bought not last and you didn't have the money to get more?: Sometimes True Within the past 12 months, did you worry whether your food would run out before you got money to buy more?: Sometimes True Do you have trouble paying for medicines?: No Do you have trouble getting transportation to medical appointments?: No Do you have trouble paying your heating and electricity bill?: No Do you have trouble taking care of your child, family member or friend?: No Do you have trouble with day-to-day activities such as bathing, preparing meals, shopping, managing finances, etc.?: Yes Are you currently unemployed and looking for a job?: No Are you interested in more education?: No Please select the resources that you would like help with: None Currently or been in a relationship where the following occur: No concerns reported THRIVE Score: 2 ALTHEA-7 AMB Questionnaire ALTHEA-7 Date ALTHEA - 7 assessed: 04/16/25 Source: Developed by Drs. Reuben Martino, Cecilia Arizmendi, Antonio Perry and colleagues, with an educational chay from [employer]. Review of Systems Const Denies body aches, Denies chills, Denies fever(s), Denies headache(s) and Denies poor appetite Eyes Reports no additional complaints ENT Denies dizziness and Denies headache(s) Card Denies chest pain, Denies syncope, Denies lightheadedness and Denies dyspnea Resp Denies dyspnea GI Denies abdominal pain, Denies nausea and Denies vomiting Reports no additional complaints Musc Reports no additional complaints and Denies abnormal gait Skin/Breast Reports system reviewed and no additional complaints, except as documented Neuro Denies abnormal gait, Denies dizziness, Denies syncope and Denies headache(s) Psych Reports no additional complaints Physical exam (Primary Care) Vital Signs: Last Vital Signs Temp 97.1 F 07/30/25 14:01 Pulse 84 07/30/25 14:01 Resp 14 07/30/25 14:01 BP 130/96 H 07/30/25 14:01 Pulse Ox 92 07/30/25 14:01 BMI result Body Mass Index 17.6 Tobacco/Smoking Status: Tobacco use Status Tobacco use date assessed 04/16/25 07/30/25 14:06 Patient Tobacco Use Status Current someday Tobacco 07/30/25 14:06 Tobacco use type Cigarette 07/30/25 14:06 e-Cigarette/Vaping Use Never Used 07/30/25 14:06 Thrive Assessment: Date of Thrive Assessment Date Thrive assessed 08/23/24 07/30/25 14:06 Currently or been in a relationship where the following occur: No concerns reported Const General: cooperative, healthy appearing, comfortable and no acute distress Orientation/consciousness: patient oriented x3 HENMT Head: Yes normocephalic Ears: hearing grossly normal bilaterally General nose exam: Normal external nose present Eyes General: appearance normal, both eyes and all related structures Conjunctivae: conjunctivae normal Neck Neck: Yes full ROM and Yes no lymphadenopathy Resp Effort & Inspection: normal respiratory effort Auscultation: clear to auscultation bilaterally, no crackles, no rales, no rhonchi and no wheezes Cardio Rate: regular rate Rhythm: regular rhythm Skin General skin exam: no rashes or lesions noted Neuro General: patient oriented x3 Gait exam (Neuro): Normal gait present Extrem General: Yes normal to inspection, Yes full ROM and No edema Psych Affect: normal affect Attitude: cooperative Insight: Good insight present (Psych) Judgement: Good judgement present (Psych) Coding Level of Care Code Est Pt Level 3 (84394) Diagnoses Hypertension I10 Elevated LDL cholesterol level E78.00 Elevated fasting glucose R73.01 Osteoporosis M81.0 Cervical post-laminectomy syndrome M96.1 COPD with emphysema J43.9 Tobacco use disorder F17.200 Assessment & Plan Assessment & Plan (1) Hypertension: Code(s): I10 - Essential (primary) hypertension Category: Medical Plan: Avoid salt intake and encourage healthy diet and regular exercise. Blood pressure elevated in the office plan to increase Lisinopril to 30mg today. Follow up in 3 months. (2) Elevated LDL cholesterol level: Code(s): E78.00 - Pure hypercholesterolemia, unspecified Category: Medical Plan: Avoid foods that are high in cholesterol such as red meat, fried foods, eggs and baked goods. Triglyceride goal of less than 150 and LDL goal of less than 130. Reminded about blood work. (3) Elevated fasting glucose: Code(s): R73.01 - Impaired fasting glucose Category: Medical Plan: Decrease the amount of carbohydrates such as pasta, bread, rice, and potatoes and limit the amount of sweets. Although fruits are generally healthy they should be eaten in moderation as they are still high in sugar. LAst A1c 4.9% (4) Osteoporosis: Code(s): M81.0 - Age-related osteoporosis without current pathological fracture Category: Medical Plan: She has an appointment for endocrinology upcoming. (5) Cervical post-laminectomy syndrome: Code(s): M96.1 - Postlaminectomy syndrome, not elsewhere classified Category: Medical Plan: She was seen by pain management but will decline any invasive treatments or surgery. Will follow up with the pain management clinic to determine their plan and if the patient wishes to proceed. She will follow up with pain management and continue on current medication. (6) COPD with emphysema: Code(s): J43.9 - Emphysema, unspecified Category: Medical Plan: The patient will continue to follow up with pulmonology for COPD management. She has a CAT scan scheduled, which is considered a priority. She will also undergo an overnight oximetry test as ordered by her blending machine feeder. (7) Tobacco use disorder: Code(s): F17.200 - Nicotine dependence, unspecified, uncomplicated Category: Medical Plan: Smoking cigarettes and the use of tobacco can be harmful. We discussed the importance of stopping and options to aid in smoking cessation. NRT patches using Plan This note was constructed using voice recognition software. While every effort has been made to ensure accuracy and construction or leak gang laborer, still areas may have been included sometimes these areas may affect the content or meeting of the given symptoms. Total time spent caring for the patient today was 30 minutes. This includes time spent before the visit reviewing the chart, time spent during the visit, and time spent after the visit and documentation. Patient was informed and verbally consented to the use of an ambient scribe for clinic note documentation during this visit. Orders: Orders Lipid Panel 3 Months E78.00 - Pure hypercholesterolemia, unspecified Medications: New lisinopril 30 mg PO DAILY 90 tabs 1RF Discontinued diclofenac sodium 1% (Arthritis Pain (diclofenac)) apply to single knee, ankle, foot; for foot includes sole/toes/top of foot Discontinued Reason: Patient no longer taking 4 grams topical QID 30 days 100 grams 4RF lisinopril Discontinued Reason: Patient no longer taking 20 mg PO DAILY 90 days 90 tabs 1RF
[2025-07-30 14:01] VITALS: BP 130/96; PULSE 84; RESP 14; TEMP 36.2; O2SAT 92; BMI 17.6
--- OUTSIDE RECORDS SUMMARY | 2025-07-30 18:07 | XMS_ITS | Encounter Summary ---
Author Organization [facility] Address [address] [facility] [address] [place] [address] Phone Care Team Providers Care Sales Floor Team Member Name Role Phone Francisco Mane CNP Primary Care Provider Rodrigue Boyce MD Unavailable [phone] Megan Rosas MD Unavailable [phone] Pcp, Unknown Primary Care Provider Unavailabl e Encounter Details Date Type Department Care Team (Late st Contact Info) Description 04/02/2021 Procedure Pass [facility]IVE DEPT [address] [place] [phone] Social History Tobacco Use Types Packs/Day Years [...] filedocumented in this encounter Care Teams Sales Floor Team Member Relationship Specialty Start Date End Date Francisco Mane CNP [address] [facility] [place] [address] [email or web address] PCP - General Family Medicine 07/17/19 03/14/22 Pcp, Unknown PCP - General 03/15/22 Rodrigue Boyce MD [address] [place] [address], [address] [place] [address] [email or web address] Insurance Assigned Provider Internal Medicine 04/03/20 Megan Rosas MD [address] [place] [address], [address] [place] [address] [email or web address] Insurance Assigned Provider 11/22/20 08/21/22 documented as of this encounter Additional Source Comments The information contained in this document represents components of the legal health record. It is not the complete legal health record.[facility]
--- OUTSIDE RECORDS SUMMARY | 2025-07-30 18:07 | XMS_ITS | Clinical Summary ---
Author Organization Formerly [facility] Address [address] [address] Phone Care Team Providers Care Ambulance Dispatcher Name Role Phone Rodrigue Boyce MD Unavailable [phone] Pcp, Unknown Primary Care Provider Unavailabl [...] referral in from her PCP to see [facility] pain clinic. Anxiety and depression 07/17/2019 [...] years but when she transferred over to [facility] this medication did not follow through. [...] this topic Medical Devices Implanted Type Area Oil Refinery Operator Device Identifier Shelf Expiration Date Model / Serial / Lot Kit Cement Bone Kyphon Xpede Polymethylmethacrylate Mixer - [id number] Implanted:Qty: 1 on 04/02/2021 by Alec Thomas MD at [facility] Bone Cement N/A: Spine Lumbar [employer] SPINE 01/13/2024 [id number] / / [id number] Procedures Procedure Name Priority Date/Time Associated [...] 10:54 AM EST) URINE CREATININE 94 mg/dL [facility] CREATININE OUTPUT 705 600 - 1,800 mg/total output [facility] Urine (Urine) 09/07/2021 10: 54 AM EST 09/07/2021 10:56 AM EST Rodrigue Awad DO LAB URINE ORDERABLES Final Resul t [facility] [address] [place] [address] * (ABNORMAL) Comprehensive metabolic panel (09/03/2021 10:39 AM EST) SODIUM 136 133 - 146 mmol/L [facility] POTASSIUM 4.0 3.3 - 5.1 mmol/L [facility] CHLORIDE 99 96 - 108 mmol/L [facility] CO2 24 21 - 35 mmol/L [facility] BUN 12 6 - 19 mg/dL [facility] CREATININE 0.70 0.5 - 1.5 mg/dL [facility] GLUCOSE 100(H) 70 - 99 mg/dL [facility] ALBUMIN 4.8 3.9 - 4.8 g/dL [facility] TOTAL PROTEIN 7.3 6.5 - 8.0 g/dL [facility] CALCIUM 9.8 8.4 - 10.3 mg/dL [facility] ALKALINE PHOSPHATASE 119(H) 39 - 117 U/L [facility] TOTAL BILIRUBIN 0.4 0.0 - 1.2 mg/dL [facility] AST 17 0 - 37 U/L [facility] ALT 10 0 - 40 U/L [facility] GLOBULIN 2.5 1 - 4.8 g/dL [facility] EGFR 94 >59 mL/min/1.7 3m2 [facility] Comment:Estimated glomerular filtration rate calculated using the CKD-EPI refit equation. ANION GAP 17 10 - 20 mmol/L [facility] Blood 09/03/2021 10:3 9 AM EST 09/03/2021 10:48 AM EST Francisco Mane [facility] LAB BLOOD BKR ORDERABL ES Final Result Performing Organization Address City/[facility]/ZIP Co de Phone Number [address] [address] * Hepatitis C antibody, qualitative (09/03/2021 10:39 AM EST) HCV NON-REACTIV E NON-REACTI VE [facility] Blood 09/03/2021 10:3 9 AM EST 09/03/2021 10:48 AM EST Francisco Mane [facility] LAB BLOOD BKR ORDERABL ES Final Result Performing Organization Address [facility] de Phone Number [address] [address] * (ABNORMAL) Lipid panel (09/03/2021 10:39 AM EST) HDL 67 mg/dL [facility] Comment: Interpretation <40 mg/dL: Low HDL cholesterol (major risk factor for CHD) Greater than or equal to 60 mg/dL: High HDL cholesterol ( negative risk factor for CHD) HDL - cholesterol is affected by a number of factors, e.g. smoking, excerise, hormones, sex and age. CHOLESTEROL 301(H) 0 - 240 mg/dL [facility] TRIGLYCERIDES 105 30 - 160 mg/dL [facility] LDL 213(H) 50 - 129 mg/dL [facility] Comment: LDL levels in terms of risk for coronary heart disease: <100 mg/dL: Optimal 100-129 mg/dL: Near or above optimal 130-159 mg/dL: Borderline high 160-189 mg/dL: High >190 mg/dL: Very High CARDIAC RISK RATIO 4.5(H) 3.3 - 4.4 C [facility] Blood 09/03/2021 10:3 9 AM EST 09/03/2021 10:48 AM EST Francisco Mane [facility] LAB BLOOD BKR ORDERABL ES Final Result [facility] [address] [place] [address] * BD DXA AXIAL (SPINE) WITH HIP [...] Z scoreis -2.9. IMPRESSION: Osteoporosis. Francisco Mane CAMP ASSISTANT IMG BD BONE DENSITY DE XA Final Result * MAMMOGRAPHY FOR RESULT ENTRY ONLY (12/03/2013) Mammogram birads 1 negative Historical Provider MD HEALTH MAINTENANCE Final Result from Last 3 Months or Most Recently Relevant to Health Maintenance Insurance MEDICARE PART A & B [facility] [employer] PPO MEDICARE REPLACEMENT MEDICARE PART A & B [facility] [employer] PPO MEDICARE REPLACEMENT [place] [facility] [employer] PPO MEDICARE REPLACEMENT MEDICARE PART A & B [facility] MEDICARE PART A & B [facility] HU[employer] PPO MEDICARE REPLACEMENT MEDICARE PART A & B [facility] [employer] PPO MEDICARE REPLACEMENT MEDICARE PART A & B [facility] [employer] PPO MEDICARE REPLACEMENT Care Teams Ambulance Dispatcher Relationship Specialty Start Date End Date Pcp, Unknown PCP - General 03/15/22 Rodrigue Boyce MD [address] [place] [address], [address] [place] [address] [email or web address] Insurance Assigned Provider Internal Medicine 04/03/20 Additional Source Comments The information contained in this document represents components of the legal health record. It is not the complete legal health record.[facility]
--- OUTSIDE RECORDS SUMMARY | 2025-07-30 18:07 | XMS_ITS | Encounter Summary ---
Author Organization [facility] Address [address] [facility] [address] [place] [address] Phone Care Team Providers Care Peripatologist Name Role Phone Francisco Mane CNP Primary Care Provider Rodrigue Boyce MD Unavailable [phone] Megan Rosas MD Unavailable [phone] Pcp, Unknown Primary Care Provider Unavailabl e Encounter Details Date Type Department Care Team (Late st Contact Info) Description 02/27/2021 Procedure Pass [facility], [address] [address] Social History Tobacco Use Types Packs/Day Years [...] on filedocumented in this encounter Care Teams Peripatologist Relationship Specialty Start Date End Date Francisco Mane CNP [address] [facility], [address] [place], [place] [id number] PCP - General Family Medicine 07/17/19 03/14/22 Pcp, Unknown PCP - General 03/15/22 Rodrigue Boyce MD [address] [place] [address], [address] [place] [address] Insurance Assigned Provider Internal Medicine 04/03/20 Megan Rosas MD [address] [place] [address], [address] [place] [address] [email or web address] Insurance Assigned Provider 11/22/20 08/21/22 documented as of this encounter Additional Source Comments The information contained in this document represents components of the legal health record. It is not the complete legal health record.[facility]
--- OUTSIDE RECORDS SUMMARY | 2025-07-30 18:07 | XMS_ITS | Clinical Summary ---
Author Organization [employer] Address [address] [place] [address] [address] [place] [address] Care Team Providers Care Confectionery Maker Name Role Phone Unavailable Primary Care Provider Unavailabl e Allergies No known active allergies Medications citalopram [...] 3 Active ergocalciferol (Vitamin D-2) 1.25 MG (55492 UT) capsule Take 1 capsule by mouth [...] Care Team (Late st Contact Info) Description 08/01/2025 2:00 PM EST Office Visit [facility] OPTOMETRY [address] [place] [address] Lianna Crandall, OD [address] [place] [address] Health Maintenance Due Date Last Done Comments CT Colonography 1952 Colonoscopy 1952 Colorectal Cancer Screening 1952 Dental Prophylaxis 1952 Depression Screening 1952 FIT DNA/Cologuard 1952 FIT 1952 FOBT 1952 Lipid Panel 1952 SDOH Screening 1952 Sigmoidoscopy 1952 Alcohol/Substance Use Screening 1964 Tobacco Screening 1964 Hepatitis C Screening 1970 Mammogram 1992 RSV Patients and Patients Aged 60 years or older (1 - Risk 50-74 years 1-dose series) 2002 Zoster Vaccines (1 of 2) 2002 DTaP/Tdap/Td Vaccines (1 - Tdap) 08/16/2006 08/15/2006, 08/15/2006 Dental Oral Exam 07/08/2022 01/04/2022 Dental X-Ray: [...] Most Recently Relevant to Health Maintenance Insurance STANDARD [employer] PPO DENTAL-[facility] MEDICAID STAND [place] [employer] PPO
--- OUTSIDE RECORDS SUMMARY | 2025-07-30 18:07 | XMS_ITS | Encounter Summary ---
Author Organization [facility] Address [address] [facility] [address] [place] [address] Phone Care Team Providers Care Veneer Marker Name Role Phone Francisco Mane CNP Primary Care Provider Rodrigue Boyce MD Unavailable [phone] Megan Rosas MD Unavailable [phone] Pcp, Unknown Primary Care Provider Unavailabl e Encounter Details Date Type Department Care Team (Late st Contact Info) Description 02/26/2021 Procedure Pass [facility], [address] [address] Social History Tobacco Use Types Packs/Day Years [...] on filedocumented in this encounter Care Teams Veneer Marker Relationship Specialty Start Date End Date Francisco Mane CNP [address] [facility], [address] [place], [place] [id number] PCP - General Family Medicine 07/17/19 03/14/22 Pcp, Unknown PCP - General 03/15/22 Rodrigue Boyce MD [address] [place] [address], [address] [place] [address] Insurance Assigned Provider Internal Medicine 04/03/20 Megan Rosas MD [address] [place] [address], [address] [place] [address] [email or web address] Insurance Assigned Provider 11/22/20 08/21/22 documented as of this encounter Additional Source Comments The information contained in this document represents components of the legal health record. It is not the complete legal health record.[facility]
--- OUTSIDE RECORDS SUMMARY | 2025-07-30 18:07 | XMS_ITS | Encounter Summary ---
Author Organization [facility] Address [address] [facility] [address] [place] [address] Phone Care Team Providers Care Stringed Instrument Tuner Name Role Phone Francisco Mane CNP Primary Care Provider Rodrigue Boyce MD Unavailable [phone] Megan Rosas MD Unavailable [phone] Pcp, Unknown Primary Care Provider Unavailabl e Encounter Details Date Type Department Care Team (Late st Contact Info) Description 03/20/2021 Procedure Pass [facility] Imaging - Peripoerative Interventional Radiology [address] [facility] 4th [place] [address] Social History Tobacco Use Types Packs/Day Years [...] on filedocumented in this encounter Care Teams Stringed Instrument Tuner Relationship Specialty Start Date End Date Francisco Mane CNP [address] [facility], [address] [place] [address] PCP - General Family Medicine 07/17/19 03/14/22 Pcp, Unknown PCP - General 03/15/22 Rodrigue Boyce MD [address] [facility] [place] [address] Insurance Assigned Provider Internal Medicine 04/03/20 Megan Rosas MD [address] [facility] [place] [address] [email or web address] Insurance Assigned Provider 11/22/20 08/21/22 documented as of this encounter Additional Source Comments The information contained in this document represents components of the legal health record. It is not the complete legal health record.[facility]
== END 2025-07-30 14:42 | disposition home or self-care (01) ==
LOC: HO.HMCH 13:56
DX: I10 Essential (primary) hypertension (principal); J43.9 Emphysema, unspecified; E78.00 Pure hypercholesterolemia, unspecified; R73.01 Impaired fasting glucose; M81.0 Age-related osteoporosis without current pathological fracture; M96.1 Postlaminectomy syndrome, not elsewhere classified; F17.200 Nicotine dependence, unspecified, uncomplicated

== ENCOUNTER → 2025-07-30 13:55 | Outpatient (BNVA) | payer MEDICARE, MEDICAID, SELFPAY | DX: I10 Essential (primary) hypertension (principal); E78.00 Pure hypercholesterolemia, unspecified; R73.01 Impaired fasting glucose; M81.0 Age-related osteoporosis without current pathological fracture; M96.1 Postlaminectomy syndrome, not elsewhere classified; J43.9 Emphysema, unspecified; F17.210 Nicotine dependence, cigarettes, uncomplicated | CPT/HCPCS: 99212 ==